=== PATIENT | female | born 1985 | race Caucasian/White ===

== ENCOUNTER → 2017-01-31 | Outpatient (CLI) | payer OTHER ==
--- NOTE | 2017-01-31 22:12 | US ---
EXAMINATION TYPE: US pelvic complete DATE OF EXAM: 01/31/2017 COMPARISON: NONE CLINICAL HISTORY: 31-year-old female N92.0 MENORRHAGIA W REG CYCLE. Heavy cycles since last 3 years ago, future ablation or hysterectomy TECHNIQUE: TA Date of LMP: 01/28/2017 FINDINGS: Uterus: Anteverted measuring 12.0 x 5.3 x 4.7 cm Endometrial Stripe: 0.8 cm, within normal limits. Right Ovary: 2.6 x 2.3 x 2.0 cm for a volume of 6.3 mL. Left Ovary: 2.3 x 2.1 x 2.0 cm for a volume of 5.1 mL. There is a 1.6 cm dominant follicle within. No evident adnexal abnormality or cul-de-sac free fluid. IMPRESSION: No specific abnormality identified. 8mm thick endometrial stripe and a 1.6 cm dominant follicle in th e left ovary.
[2017-02-01 01:14] LABS: Prolactin 6.8 ng/mL (2.8-29.2)
== END | disposition home or self-care (01) ==
LOC: RADUSWWP 15:00
PROVIDERS: ATTEND Obstetrics & Gynecology
DX: N92.0 Excessive and frequent menstruation with regular cycle (principal)
CPT/HCPCS: 36415; 76856; 83001; 83002; 84146; 84443

== ENCOUNTER 2017-03-15 09:30 | Day surgery (SDC) | payer OTHER ==
[2017-03-14 08:23] VITALS: BMI 45.1
--- NOTE | 2017-03-15 08:02 | P.HPOB ---
History of Present Illness H&P Date: 03/15/17 Chief Complaint: Heavy vaginal bleeding Cindi is a 31-year-old female with heavy vaginal bleeding. She reports passage of large clots and this is also causing her significant amount of pain and distress. In the past she is past out due to how heavy her bleeding is and how severe the clot passing is. We did discuss in length possibly starting on control versus Mirena but she would like a more permanent solution and she is therefore scheduled for a D&C hysteroscopy with NovaSure. Risks/benefits /alternatives to this procedure were discussed with the patient in detail and all questions are answered for the patient prior to proceeding to the operating room. She has had a previous tubal ligation. On physical exam this a well- developed well-nourished female whose HEENT is unremarkable. Heart regular, lungs clear, extremities without pain. Abdomen soft bowel sounds are noted. Assessment menorrhagia plan D&C with hysteroscopy and NovaSure Past Medical History Past Medical History: Asthma History of Any Multi-Drug Resistant Organisms: None Reported Past Surgical History: Section Additional Past Surgical History / Comment(s): Colonoscopy, EGD Past Anesthesia/Blood Transfusion Reactions: No Reported Reaction Additional Past Anesthesia/Blood Transfusion Reaction / Comment(s): NO PRIOR ANESTHESIA Smoking Status: Never smoker - Past Family History Brother(s) Family Medical History: Asthma Medications and Allergies Home Medications Medication Instructions Recorded Confirmed Type Albuterol Inhaler [Ventolin 1 - 2 puff INHALATION Q4-6H PRN 10/30/13 03/14/17 History Inhaler] Allergies Allergy/AdvReac Type Severity Reaction Status Date / Time arithromycin Allergy Anaphylaxis Uncoded 03/14/17 08:18 Exam Osteopathic Statement: *. No significant issues noted on an osteopathic structural exam other than those noted in the History and Physical/Consult.
[~2017-03-15 09:30] MED LIST: DEXAMETHASONE SOD PHOSPHATE 10 MG/ML 1 ML VIAL IV ONE; LACTATED RINGERS 1,000 ML IV SCH; LIDOCAINE 1% 20 ML VIAL (10MG/ML) FOR IV START INTRADERMA PRN; MIDAZOLAM 2 MG/2 ML VIAL IV PRN; Pre Op ABX Message 1 EACH MISC MISCELLANE ONE; SCOPOLAMINE 1.5MG/72HR PATCH TRANSDERM ONE
[2017-03-15] MEDS: ONDANSETRON 4 MG/2 ML VIAL IVP ONE ×2 (10:17→12:47)
[2017-03-15] MEDS ORDERED: PROPOFOL 10 MG/ML 20 ML VIAL IV ONE (11:06)
[2017-03-15] MEDS ORDERED: LIDOCAINE 1% INJ 10MG/ML (20 ML MDV) ONE (11:06)
[2017-03-15] MEDS ORDERED: MIDAZOLAM 2 MG/2 ML VIAL ONE (11:06)
[2017-03-15] MEDS ORDERED: fentaNYL (PF) 50 MCG/ML 2 ML AMP ONE (11:06)
[2017-03-15] MEDS ORDERED: SUCCINYLCHOLINE CHLORIDE 100 MG/5 ML SYR IV ONE (11:06)
--- NOTE | 2017-03-15 11:40 | P.OP ---
Date of Procedure: 03/15/17 Preoperative Diagnosis: Menorrhagia Postoperative Diagnosis: Same Procedure(s) Performed: D&C with hysteroscopy and NovaSure Anesthesia: ANGELA Surgeon: Karri Hopkins Estimated Blood Loss (ml): 5 Pathology: other (Uterine curettings) Condition: stable Disposition: same day Operative Findings: Proliferative endometrium Description of Procedure: Cindi was taken to the operating suite where a general anesthetic was found be adequate. She was prepped and draped in the normal sterile fashion and placed in the dorsal lithotomy position. Initially a weighted speculum was inserted into the vagina and the anterior lip cervix was grasped with an Allis clamp. Uterus was then sounded to 11 cm and cervix was dilated. Camera was inserted and proliferative endometrium was noted. Sharp curettings of the endometrium were then obtained and placed on Telfa paper. Once this was accomplished NovaSure system was brought in with a length of 5 and abdomen with 2-1/2 it was tested. Once it passed its patency test it was enabled and then it did burn for 91 seconds. The Conclusion of the burn NovaSure system was removed and camera was reinserted with good burn noted. All instruments were then removed sponge, lap , needle counts were all correct 2 and patient was taken to the recovery room in stable and satisfactory condition. Plan - Discharge Summary New Discharge Prescriptions: New Ibuprofen [Motrin] 600 mg PO Q6HR PRN #30 tab PRN Reason: Pain No Action Albuterol Inhaler [Ventolin Inhaler] 1 - 2 puff INHALATION Q4-6H PRN PRN Reason: Shortness Of Breath Or Wheezing Discharge Medication List Albuterol Inhaler [Ventolin Inhaler] 1 - 2 puff INHALATION Q4-6H PRN 10/30/13 [ History] Ibuprofen [Motrin] 600 mg PO Q6HR PRN #30 tab 03/15/17 [Rx] Activity/Diet/Wound Care/Special Instructions: Heavy lifting, limit stairs and driving and pelvic rest. If any high temperatures, heavy bleeding, or severe pain call my office
[2017-03-15 11:54] VITALS: TEMP 97
[2017-03-15] MEDS ORDERED: KETOROLAC 30 MG/ML 1 ML VIAL IVP ONE (11:59)
[2017-03-15] MEDS: HYDROmorphone 1 MG/ML 1 ML SYRINGE IVP PRN ×4 (12:00→12:50)
[2017-03-15 12:01] VITALS: RESP 16
[2017-03-15 13:28] VITALS: BP 118/77; PULSE 76
== END 2017-03-15 15:22 | disposition home or self-care (01) ==
LOC: OR 09:30
PROVIDERS: ATTEND Obstetrics & Gynecology
DX: N84.0 Polyp of corpus uteri (principal); N92.0 Excessive and frequent menstruation with regular cycle; J45.909 Unspecified asthma, uncomplicated; Z79.899 Other long term (current) drug therapy; Z88.1 Allergy status to other antibiotic agents
CPT/HCPCS: 81025; 88305; 58563; J2250; J1100; J2405; J2001; J3010; J1885; J1170; J0330; J2704

== ENCOUNTER → 2017-06-19 | Outpatient (CLI) | payer OTHER ==
[2017-06-19 09:08] LABS: Basophils % (A) 0 %; Eosinophils # (A) 0.3 k/uL (0-0.7); Eosinophils % (A) 4 %; HCT 40.2 % (34.0-46.0); Lymphocytes # (A) 1.9 k/uL (1.0-4.8); Lymphocytes % (A) 21 %; MCH 27.2 pg (25.0-35.0); MCHC 32.4 g/dL (31.0-37.0); MCV 83.9 fL (80.0-100.0); Mean Platelet Volume 6.6; Monocytes # (A) 0.4 k/uL (0-1.0); Monocytes % (A) 5 %; Neutrophils # (A) 6.3 k/uL (1.3-7.7); Neutrophils % (A) 69 %; Platelet Count 319 k/uL (150-450); RBC 4.79 m/uL (3.80-5.40); RDW 13.6 % (11.5-15.5); WBC 9.1 k/uL (3.8-10.6)
== END | disposition home or self-care (01) ==
LOC: LABWHC1 08:41
PROVIDERS: ATTEND Obstetrics & Gynecology
DX: N92.0 Excessive and frequent menstruation with regular cycle (principal); R42 Dizziness and giddiness
CPT/HCPCS: 36415; 85025

== ENCOUNTER → 2017-08-15 | Outpatient (CLI) | payer OTHER ==
[2017-08-15 13:34] LABS: Basophils % (A) 0 %; Eosinophils # (A) 0.3 k/uL (0-0.7); Eosinophils % (A) 3 %; HCT 39.5 % (34.0-46.0); HGB 12.9 gm/dL (11.4-16.0); Lymphocytes # (A) 2.1 k/uL (1.0-4.8); Lymphocytes % (A) 22 %; MCHC 32.7 g/dL (31.0-37.0); MCV 82.5 fL (80.0-100.0); Mean Platelet Volume 6.8; Monocytes # (A) 0.4 k/uL (0-1.0); Monocytes % (A) 4 %; Neutrophils # (A) 6.7 k/uL (1.3-7.7); Neutrophils % (A) 69 %; Platelet Count 327 k/uL (150-450); RBC 4.79 m/uL (3.80-5.40); RDW 14.2 % (11.5-15.5); WBC 9.6 k/uL (3.8-10.6)
[2017-08-15 14:02] LABS: Anion Gap 12 mmol/L; Blood Urea Nitrogen 13 mg/dL (7-17); Calcium 9.5 mg/dL (8.4-10.2); Carbon Dioxide 23 mmol/L (22-30); Chloride 107 mmol/L (98-107); Glucose 79 mg/dL (74-99); Potassium 4.3 mmol/L (3.5-5.1); Sodium 142 mmol/L (137-145)
== END | disposition home or self-care (01) ==
LOC: LABPAT 13:03
PROVIDERS: ATTEND Obstetrics & Gynecology
DX: Z01.812 Encounter for preprocedural laboratory examination (principal)
CPT/HCPCS: 36415; 80048; 85025

== ENCOUNTER 2017-08-23 05:37 | Observation (INO) | payer OTHER ==
[2017-08-14 14:02] VITALS: BMI 46.7
--- NOTE | 2017-08-22 06:46 | P.HPOB ---
History of Present Illness H&P Date: 08/22/17 Chief Complaint: Menorrhagia with failed NovaSure Cindi is a 32-year-old female who underwent a NovaSure ablation for menorrhagia. Since having the procedure she is continued to have heavy bleeding and at this time she is interested in a permanent solution and is therefore scheduled for a robotic-assisted laparoscopic hysterectomy with possible BETH possible BSO. Risks/benefits/alternatives to this procedure were discussed with the patient in detail and did include, but were not limited to damage to bladder, bowel, vascular injuries, nerve damage, bleeding, infection or potential ureteral injuries. She is unable to function well due to her bleeding and often cannot leave the house due to how heavy the bleeding is. It is severely impacting her activities of daily living. Past Medical History Past Medical History: Asthma Additional Past Medical History / Comment(s): abdominal pain and heavy and frequent periods History of Any Multi-Drug Resistant Organisms: None Reported Past Surgical History: Section, Uterine Ablation Additional Past Surgical History / Comment(s): D&C Past Anesthesia/Blood Transfusion Reactions: No Reported Reaction Additional Past Anesthesia/Blood Transfusion Reaction / Comment(s): . Smoking Status: Never smoker - Past Family History Mother Family Medical History: No Reported History Brother(s) Family Medical History: Asthma Medications and Allergies Home Medications Medication Instructions Recorded Confirmed Type No Known Home Medications [No 08/14/17 08/14/17 History Known Home Medications] Allergies Allergy/AdvReac Type Severity Reaction Status Date / Time erythromycin base Allergy Severe throat Verified 08/14/17 13:57 closes up Exam Osteopathic Statement: *. No significant issues noted on an osteopathic structural exam other than those noted in the History and Physical/Consult. - OBG Physical Exam Breast: both: normal (no masses) Abdomen: bowel sounds normal, no diffuse tenderness, no bruit present, no guarding noted, no hepatomegaly, no splenomegaly, no mass Vulva: both: normal Vagina: normal moisture, no discharge Cervix: no lesion, no discharge Uterus: normal size, normal contour Adnexa: both: normal Anus/Rectum: normal perianal skin, no rectal mass, no hemorrhoids, heme negative Assessment and Plan Assessment: Menorrhagia with failed ablation Plan: Robotic-assisted laparoscopic hysterectomy possible total abdominal hysterectomy and bilateral salpingo-oophorectomy
[~2017-08-23 05:37] MED LIST changes: +HYDROmorphone 0.5 MG/0.5 ML SYRINGE IVP PRN; -LACTATED RINGERS 1,000 ML IV SCH; -LIDOCAINE 1% 20 ML VIAL (10MG/ML) FOR IV START INTRADERMA PRN; -MIDAZOLAM 2 MG/2 ML VIAL IV PRN; +ONDANSETRON 4 MG/2 ML VIAL IVP ONE; -Pre Op ABX Message 1 EACH MISC MISCELLANE ONE; -SCOPOLAMINE 1.5MG/72HR PATCH TRANSDERM ONE
[2017-08-23] MEDS: LACTATED RINGERS 1,000 ML IV SCH (06:38)
[2017-08-23] MEDS ORDERED: SCOPOLAMINE 1.5MG/72HR PATCH TRANSDERM ONE (06:39)
[2017-08-23] MEDS ORDERED: LIDOCAINE 1% 20 ML VIAL (10MG/ML) FOR IV START SQ ONE (06:39)
[2017-08-23] MEDS ORDERED: SUCCINYLCHOLINE CHLORIDE VIAL 200 MG/10 ML VIAL IV ONE (07:37)
[2017-08-23] MEDS ORDERED: MIDAZOLAM 2 MG/2 ML VIAL ONE (07:37)
[2017-08-23] MEDS ORDERED: GLYCOPYRROLATE 0.2 MG/ML 2 ML VIAL ONE (07:37)
[2017-08-23] MEDS ORDERED: NEOSTIGMINE 1 MG/ML 10 ML VIAL ONE (07:37)
[2017-08-23] MEDS ORDERED: ROCURONIUM BROMIDE 10 MG/ML 10 ML VIAL IV ONE (07:37)
[2017-08-23] MEDS ORDERED: LIDOCAINE 1% INJ 10MG/ML (20 ML MDV) ONE (07:37)
[2017-08-23] MEDS ORDERED: fentaNYL (PF) 50 MCG/ML 2 ML AMP ONE (07:37)
[2017-08-23] MEDS ORDERED: PROPOFOL 10 MG/ML 20 ML VIAL IV ONE (07:37)
[2017-08-23] MEDS ORDERED: BUPIVACAINE (PF) 0.25% 30 ML VIAL SQ ONE ×2 (08:16)
[2017-08-23] MEDS ORDERED: ONDANSETRON 4 MG/2 ML VIAL IVP PRN (09:02)
[2017-08-23] MEDS ORDERED: Acetaminophen-Codeine 300-30mg TAB PO PRN (09:02)
[2017-08-23] MEDS ORDERED: SIMETHICONE 80 MG CHEWABLE PO PRN (09:02)
[2017-08-23] MEDS ORDERED: diphenhydrAMINE 50 MG/ML 1 ML VIAL IVP PRN (09:02)
--- NOTE | 2017-08-23 09:09 | P.OP ---
Date of Procedure: 08/23/17 Preoperative Diagnosis: Menorrhagia: Failed NovaSure Postoperative Diagnosis: Same Procedure(s) Performed: Robotic-assisted laparoscopic hysterectomy Anesthesia: ANGELA Surgeon: Karri Hopkins Staff Home Therapy Rn #1: Omayra Whittington Estimated Blood Loss (ml): 50 IV fluids (ml): 400 Urine output (ml): 75 Pathology: other (Uterus and cervix) Condition: stable Disposition: floor Operative Findings: No significant gross pathology was noted. Uterus somewhat boggy likely representing adenomyosis Description of Procedure: Patient was taken to the operating suite where general anesthetic was found be adequate. She was prepped and draped in the normal sterile fashion and placed in dorsal lithotomy position. Initially a weighted speculum was inserted into the vagina and anterior lip of the cervix identified and grasped with a single- tooth tenaculum. Cervix was then dilated and the uterus was sounded to 10 cm. Cup size was 3 cm. Lisa manipulator was then inserted without difficulty and maximal Ascent was measured and marked. Arteaga catheter was then placed and other instruments were removed. Gloves were changed and attention was turned to abdominal portion procedure where 2 mL of quarter percent Marcaine was injected approximately 1 inch above the umbilicus. Through this injected anesthetic a 5 mm skin incision was made and through this incision under direct visualization with an optical trocar and sleeve the camera was inserted. Once peritoneal placement was assured gas was allowed to fully insufflate the abdomen and patient was then placed in steep Trendelenburg position. Lateral ports and sleeves were then inserted approximately 10 cm lateral to the umbilicus on the right and left side 8 mm skin incisions were made and da Sofiya trochars were placed. Fourth port and sleeve was then placed between the left lateral and medial port slightly superior to the medial port through 1 cm incision. This was used for the customer service assistant port. Da Sofiya port was then exchanged for the laparoscopic camera port and robot was brought in and docked. Once fully docked a scissor was placed in the one arm and a blunt grasper in the 2 arm. At this point did break scrub and go to the console. Uterus was elevated and tipped to the right side first the utero-ovarian ligament was identified cauterized and cut transection through the broad ligament tissues and mesosalpinx were then cauterized and cut once the round ligament round ligament was cauterized and transected and cardia was used to skeletonize the vascularity on the left side. Once this was accomplished and down to level of the bladder flap bladder flap was undermined with [place] grasper and incised with scissor across face uterus and the bladder was then bluntly and sharply dissected out of the operative field. Once this was concluded in a similar fashion the right side of the uterus was developed. Balloon was then blown up in the Lisa manipulator and the cup was identified. Anterior colpotomy was then made and this was followed around in a clockwise fashion cheating head when necessary to maintain excellent hemostasis. Once 3 and 60 was completed uterus was brought into the vagina to maintain pneumoperitoneum. All pedicles were hemostatic therefore instruments were exchanged for a fenestrated grasper and a make suture cut. She will be lock suture was then brought in and half was closed in a running fashion with this suture. Once this was completed pelvis was irrigated this fluid was then suctioned out no bleeding is noted from any of the pedicles therefore instruments were removed and gas was allowed to expel from the abdomen. 5 deep breaths were provided during this process. I did re-scrub in at this point and did do a cystoscopy with good flow noted from both ureteral jets and Dr. Whittington close incision subcuticular. The remaining 7-8 mL of quarter percent Marcaine was then injected around the incisions. Sponge, lap, needle counts were all correct 2. Patient was then taken to the recovery room in stable and satisfactory condition.
[2017-08-23] MEDS: MORPHINE SULFATE 4 MG/ML SYRINGE IV PRN ×2 (09:26→09:38)
[2017-08-23] MEDS: KETOROLAC 30 MG/ML 1 ML VIAL IVP PRN ×2 (09:31→17:17)
[2017-08-23] MEDS ORDERED: MEPERIDINE 50 MG/ML SYRINGE IVP ONE (09:50)
[2017-08-23] MEDS: Acetaminophen-Codeine 300-30mg TAB PO PRN ×2 (11:43→19:32)
[2017-08-23] MEDS: SENNOSIDES-DOCUSATE SODIUM 1 EACH TAB PO SCH (19:32)
[2017-08-24] MEDS: KETOROLAC 30 MG/ML 1 ML VIAL IVP PRN (00:21)
[2017-08-24] MEDS: Acetaminophen-Codeine 300-30mg TAB PO PRN ×3 (02:27→12:56)
[2017-08-24] MEDS: SENNOSIDES-DOCUSATE SODIUM 1 EACH TAB PO SCH (07:43)
[2017-08-24 08:31] LABS: Basophils % (A) 0 %; Eosinophils % (A) 0 %; HCT 38.2 % (34.0-46.0); HGB 12.7 gm/dL (11.4-16.0); Lymphocytes # (A) 2.1 k/uL (1.0-4.8); Lymphocytes % (A) 14 %; MCH 27.4 pg (25.0-35.0); MCHC 33.3 g/dL (31.0-37.0); MCV 82.4 fL (80.0-100.0); Mean Platelet Volume 6.6; Monocytes # (A) 0.6 k/uL (0-1.0); Monocytes % (A) 4 %; Neutrophils # (A) 11.4 k/uL (1.3-7.7); Neutrophils % (A) 80 %; Platelet Count 361 k/uL (150-450); RBC 4.64 m/uL (3.80-5.40); RDW 14.1 % (11.5-15.5); WBC 14.3 k/uL (3.8-10.6)
--- NOTE | 2017-08-24 12:58 | P.DS ---
Providers Date of admission: 08/24/17 00:27 Expected date of discharge: 08/24/17 Attending physician: Karri Hopkins Primary care physician: Stated None Hospital Course: Cindi is doing very well postop day 1. She is involuting, voiding, and she is tolerating her diet. She voices no complaints and is requesting discharge home today. Vital signs are stable and afebrile. Heart regular, lungs clear, extremities without pain. Abdomen soft nontender and positive bowel sounds are noted. Her incisions are intact. Assessment postop day 1. Plan discharged home follow up with me in 1 week. Prescription for 3 days worth of #3 and Motrin as been provided. All the questions are answered for her at this time and she will follow up with me in 1 week. Patient Condition at Discharge: Good Plan - Discharge Summary Discharge Rx Participant: Yes New Discharge Prescriptions: New Acetaminophen-Codeine 300-30mg [Tylenol #3] 1 tab PO Q4H PRN #30 tablet PRN Reason: Pain Ibuprofen [Motrin] 600 mg PO Q6HR PRN #30 tab PRN Reason: Pain Discharge Medication List Acetaminophen-Codeine 300-30mg [Tylenol #3] 1 tab PO Q4H PRN #30 tablet [Rx] Ibuprofen [Motrin] 600 mg PO Q6HR PRN #30 tab 08/24/17 [Rx] Follow up Appointment(s)/Referral(s): Karri Hopkins DO [Doctor of Osteopathic Medicine] - 1 Week Activity/Diet/Wound Care/Special Instructions: No heavy lifting, limit stairs and driving, and pelvic rest. If any high temperatures, heavy bleeding, or severe pain call my office Discharge Disposition: HOME SELF-CARE
[2017-08-24 13:08] VITALS: RESP 16
[2017-08-24 15:58] VITALS: BP 116/55; PULSE 73; TEMP 98.8
== END 2017-08-24 17:00 | disposition home or self-care (01) ==
LOC: OR 05:37 → 4FBP 09:11 → OR 08-24 00:27
PROVIDERS: ADMIT Obstetrics & Gynecology; ATTEND Obstetrics & Gynecology
DX: N92.0 Excessive and frequent menstruation with regular cycle (principal); J45.909 Unspecified asthma, uncomplicated; Z88.1 Allergy status to other antibiotic agents
CPT/HCPCS: 81025; 86900; 86901; 85025; 86850; 88307; 58570; G0378; J2250; J0330; J2270; J1100; J2710; J2175; J0690; J2405; J2001; J3010; J1885 ×2; J2704

== ENCOUNTER → 2018-10-21 | Outpatient (CLI) | payer BC ==
[2018-10-21 15:29] VITALS: BP 148/88; PULSE 73; TEMP 98.6; BMI 51.1
--- NOTE | 2018-10-21 16:24 | P.HPBAR ---
Bariatric H&P - History & Physicial H&P Date: 10/21/18 History & Physicial: Visit/CC: bariatric sx consult Patient initial contact: Initial weight: 143.698 kg Initial weight in pounds: 316.80 Height: 5 ft 6 in Initial BMI: 51.1 Last weight: Current weight: 143.698 kg Current weight in pounds: 316.80 Current BMI: 51.1 [place] body weight (based on NIH guidelines): 58.967 kg Excess body weight loss: 0.0% The patient is a 33 year-old F who presents for Bariatric Assessment. Patient presents today for initial bariatric consultation. The patient is interested in the sleeve gastrectomy. Patient's had lifetime problems obesity. Her BMI is 51. Past Medical History Past Medical History: Asthma Additional Past Medical History / Comment(s): abdominal pain and heavy and frequent periods History of Any Multi-Drug Resistant Organisms: None Reported Past Surgical History: Section, Hysterectomy, Uterine Ablation Additional Past Surgical History / Comment(s): D&C, partial hysterectomy (bilateral ovaries retained) August 2017, Past Anesthesia/Blood Transfusion Reactions: No Reported Reaction Additional Past Anesthesia/Blood Transfusion Reaction / Comm: . Past Psychological History: Anxiety Additional Psychological History / Comment(s): Takes Lexapro daily Smoking Status: Never smoker Past Alcohol Use History: Rare Past Drug Use History: None Reported - Past Family History Mother Family Medical History: Hypertension Father Additional Family Medical History / Comment(s): at age 46 from unknown causes Surgical - Exam Vital Signs Temp Pulse BP 98.6 F 73 148/88 10/21/18 15:19 10/21/18 15:19 10/21/18 15:19 BMI 51 - General well developed, well nourished, no distress - Eyes PERRL - Abdomen Abdomen: soft, non tender Bariatric Assessment & Plan Plan: RBC. Patient will be scheduled for EGD to evaluate her stomach. We went over the risks and benefits of the sleeve gastrectomy. Patient has good understanding of sleeve gastrectomy she'll centimeters a risk of gastric staple line bleeding, scarring or obstruction. Bariatric Checklist Checklist: Plan: Checklist: EGD: 1. Hiatal hernia: 2. H. Pylori: HgbA1c: Vitamin D: Smoking: Never smoker Primary care physician referral: Dr. Thomas Psychiatry clearance: Cardiology clearance: Sleep study: Diet journal: VTE risk score: VTE risk level: Rehab needs at discharge:
[2018-10-21 17:19] LABS: HCT 40.3 % (34.0-46.0); HGB 13.2 gm/dL (11.4-16.0); MCH 27.9 pg (25.0-35.0); MCHC 32.8 g/dL (31.0-37.0); Mean Platelet Volume 6.7; Platelet Count 322 k/uL (150-450); RBC 4.74 m/uL (3.80-5.40); RDW 13.9 % (11.5-15.5); WBC 11.3 k/uL (3.8-10.6)
[2018-10-22 00:12] LABS: Vitamin D 25 Hydroxy 18.9 ng/mL (30.0-100.0)
[2018-10-22 00:38] LABS: African American GFR (CKD) 113.1 (60.0-200.0); Albumin 4.5 g/dL (3.80-4.90); Albumin/Globulin Ratio 2.37 (1.60-3.17); Anion Gap 14.6 mmol/L (4.00-12.00); BUN/Creat Ratio 11.25 Ratio (12.00-20.00); Calcium 9.4 mg/dL (8.7-10.3); Carbon Dioxide 19.4 mmol/L (21.6-31.8); Globulin 1.9 g/dL (1.6-3.3); Potassium 4.3 mmol/L (3.5-5.5); Total Bilirubin 0.2 mg/dL (0.2-1.2); Total Protein 6.4 g/dL (6.2-8.2)
[2018-10-22 01:21] LABS: Hemoglobin A1C 5.4 % (4.0-6.0)
== END | disposition home or self-care (01) ==
LOC: BARWHC3 14:55
PROVIDERS: ATTEND Surgery
DX: E66.01 Morbid (severe) obesity due to excess calories (principal); E44.0 Moderate protein-calorie malnutrition; E55.9 Vitamin D deficiency, unspecified; Z68.43 Body mass index [BMI] 50.0-59.9, adult
CPT/HCPCS: 80053; 82306; 82607; 83036; 84443; 85027; 93005; 99211

== ENCOUNTER 2018-12-11 12:13 | Day surgery (SDC) | payer BC ==
[2018-12-05 13:43] VITALS: BMI 52.1
[~2018-12-11 12:13] MED LIST changes: -DEXAMETHASONE SOD PHOSPHATE 10 MG/ML 1 ML VIAL IV ONE; -HYDROmorphone 0.5 MG/0.5 ML SYRINGE IVP PRN; +LACTATED RINGERS 1,000 ML IV SCH; +LIDOCAINE 1% 20 ML VIAL (10MG/ML) FOR IV START INTRADERMA PRN; -ONDANSETRON 4 MG/2 ML VIAL IVP ONE
[2018-12-11 12:37] VITALS: TEMP 97.3
[2018-12-11] MEDS ORDERED: PROPOFOL 10 MG/ML 20 ML VIAL IV ONE (13:27)
[2018-12-11] MEDS ORDERED: LIDOCAINE 1% INJ 10MG/ML (20 ML MDV) ONE (13:27)
[2018-12-11] MEDS ORDERED: fentaNYL (PF) 50 MCG/ML 2 ML AMP ONE (13:27)
--- NOTE | 2018-12-11 13:30 | P.GSHP ---
History of Present Illness H&P Date: 12/11/18 Chief Complaint: Morbid obesity This is a 33-year-old female who presents today for EGD. She is undergoing workup for sleeve gastrectomy. Her BMI is 52 Past Medical History Past Medical History: Asthma Additional Past Medical History / Comment(s): . History of Any Multi-Drug Resistant Organisms: None Reported Past Surgical History: Section, Hysterectomy, Uterine Ablation Additional Past Surgical History / Comment(s): D&C, partial hysterectomy (bilateral ovaries retained) August 2017, Past Anesthesia/Blood Transfusion Reactions: No Reported Reaction Additional Past Anesthesia/Blood Transfusion Reaction / Comment(s): . Smoking Status: Never smoker - Past Family History Mother Family Medical History: Hypertension Father Additional Family Medical History / Comment(s): at age 46 from unknown causes Medications and Allergies Home Medications Medication Instructions Recorded Confirmed Type Escitalopram [Lexapro] 10 mg PO DAILY 10/21/18 12/11/18 History Allergies Allergy/AdvReac Type Severity Reaction Status Date / Time erythromycin base Allergy Severe throat Verified 12/05/18 13:38 closes up amoxicillin [From Augmentin] Allergy Rash/Hives Verified 12/05/18 13:38 clavulanic acid Allergy Rash/Hives Verified 12/05/18 13:38 [From Augmentin] sulfamethoxazole Allergy Rash/Hives Verified 12/05/18 13:38 [From Bactrim] trimethoprim [From Bactrim] Allergy Rash/Hives Verified 12/05/18 13:38 Surgical - Exam Vital Signs Temp Pulse Resp BP Pulse Ox 97.3 F L 69 18 144/77 96 12/11/18 12:35 12/11/18 12:35 12/11/18 12:35 12/11/18 12:35 12/11/18 12:35 - General well developed, well nourished, no distress - Eyes PERRL - ENT normal pinna - Neck no masses, no bruits - Respiratory normal expansion - Cardiovascular Rhythm: regular - Abdomen Abdomen: soft, non tender Assessment and Plan Assessment: Morbid obesity, BMI 52. We'll perform EGD.
--- NOTE | 2018-12-11 13:37 | P.OP ---
Date of Procedure: 12/11/18 Preoperative Diagnosis: Morbid obesity, BMI 52 Postoperative Diagnosis: Antral gastritis Hiatal hernia Esophagitis Procedure(s) Performed: EGD Anesthesia: MAC Surgeon: Rob Russo Pathology: other (Antrum, esophagus) Condition: stable Disposition: PACU Description of Procedure: Patient's placed on the endoscopy table in the lateral position. She received IV sedation. The gastroscope was oropharynx past esophagus stomach. Scope some placed through the pylorus. The first and second portion of the duodenum appeared normal. Scope was then brought back the antrum this was mildly inflamed. A biopsies performed. Scope was unretroflexed and remainder the stomach appeared normal. There was a small hiatal hernia. The GE junction was at 38 cm. The distal esophagus. Inflamed a biopsies performed. The proximal esophagus appeared normal. Scope was withdrawn for patient.
[2018-12-11] MEDS ORDERED: LACTATED RINGERS 1,000 ML IV ONE (13:40)
[2018-12-11] MEDS ORDERED: IV FLUID CONTINUATION 1,000 ML IV ONE (13:40)
[2018-12-11 13:56] VITALS: BP 139/91; PULSE 68; RESP 16
== END 2018-12-11 14:14 | disposition home or self-care (01) ==
LOC: ORWHC2ENDO 12:13
PROVIDERS: ATTEND Surgery
DX: E66.01 Morbid (severe) obesity due to excess calories (principal); Z68.43 Body mass index [BMI] 50.0-59.9, adult; I10 Essential (primary) hypertension; K44.9 Diaphragmatic hernia without obstruction or gangrene; K21.0 Gastro-esophageal reflux disease with esophagitis; K29.70 Gastritis, unspecified, without bleeding; E78.5 Hyperlipidemia, unspecified; Z87.891 Personal history of nicotine dependence; J45.909 Unspecified asthma, uncomplicated; Z88.1 Allergy status to other antibiotic agents; Z88.2 Allergy status to sulfonamides; Z88.8 Allergy status to other drugs, medicaments and biological substances; Z79.899 Other long term (current) drug therapy; Z90.711 Acquired absence of uterus with remaining cervical stump; Z82.49 Family history of ischemic heart disease and other diseases of the circulatory system
CPT/HCPCS: 88305; 43239; J2001; J3010; J2704

== ENCOUNTER → 2018-12-30 | Outpatient (CLI) | payer BC ==
[2018-12-30 13:35] VITALS: BMI 51.5
== END | disposition home or self-care (01) ==
LOC: BARWHC3 08:43
PROVIDERS: ATTEND Surgery
DX: E66.01 Morbid (severe) obesity due to excess calories (principal); Z68.43 Body mass index [BMI] 50.0-59.9, adult
CPT/HCPCS: 97804

== ENCOUNTER → 2019-01-13 | Outpatient (CLI) | payer BC ==
[2019-01-13 16:04] VITALS: RESP 16
--- NOTE | 2019-01-13 16:39 | P.HPBAR ---
Bariatric H&P - History & Physicial H&P Date: 01/13/19 History & Physicial: Visit/CC: Post-Surg Patient initial contact: Initial weight: 143.698 kg Initial weight in pounds: 316.80 Height: Initial BMI: Last weight: Current weight: Current weight in pounds: Current BMI: [place] body weight (based on NIH guidelines): Excess body weight loss: The patient is a 33 year-old F who presents for Bariatric Assessment. Patient presents today for presurgical consultation. Apparently she has met all her insurance authorization requirements. The patient is an excellent understanding sleeve gastrectomy. Patient states that she's had some intermittent right upper quadrant pain. She's had a previous HIDA scan which was abnormal. Past Medical History Past Medical History: Asthma Additional Past Medical History / Comment(s): . History of Any Multi-Drug Resistant Organisms: None Reported Past Surgical History: Section, Hysterectomy, Uterine Ablation Additional Past Surgical History / Comment(s): D&C, partial hysterectomy (bilateral ovaries retained) August 2017, Past Anesthesia/Blood Transfusion Reactions: No Reported Reaction Additional Past Anesthesia/Blood Transfusion Reaction / Comm: . Past Psychological History: Anxiety Additional Psychological History / Comment(s): . Smoking Status: Never smoker Past Alcohol Use History: Rare Past Drug Use History: None Reported - Past Family History Mother Family Medical History: Hypertension Father Additional Family Medical History / Comment(s): at age 46 from unknown causes Brother(s) Family Medical History: Asthma Surgical - Exam Vital Signs Resp 16 01/13/19 15:45 - General well developed, well nourished, no distress - Eyes PERRL - ENT normal pinna - Neck no masses - Respiratory normal expansion - Cardiovascular Rhythm: regular - Abdomen Abdomen: soft, non tender Bariatric Assessment & Plan Plan: Morbid obesity. Chronic cholecystitis with hyperkinetic gallbladder. Patiently scheduled for laparoscopic sleeve yesterday. She'll also be scheduled for a laparoscopic cholecystectomy. Bariatric Checklist Checklist: Plan: Checklist: EGD: 1. Hiatal hernia: 2. H. Pylori: HgbA1c: Vitamin D: Smoking: Never smoker Primary care physician referral: Dr. Thomas Psychiatry clearance: Cardiology clearance: Sleep study: Diet journal: VTE risk score: VTE risk level: Rehab needs at discharge:
== END | disposition home or self-care (01) ==
LOC: BARWHC3 15:13
PROVIDERS: ATTEND Surgery
DX: E66.01 Morbid (severe) obesity due to excess calories (principal); K81.1 Chronic cholecystitis; K82.9 Disease of gallbladder, unspecified; R10.11 Right upper quadrant pain; Z90.710 Acquired absence of both cervix and uterus; Z98.890 Other specified postprocedural states
CPT/HCPCS: 99211

== ENCOUNTER → 2019-01-22 | Outpatient (CLI) | payer BC ==
[2019-01-22 14:39] LABS: HCT 41.8 % (34.0-46.0); HGB 13.6 gm/dL (11.4-16.0); MCH 27.6 pg (25.0-35.0); MCHC 32.5 g/dL (31.0-37.0); MCV 84.9 fL (80.0-100.0); Mean Platelet Volume 6.9; Platelet Count 346 k/uL (150-450); RBC 4.92 m/uL (3.80-5.40); RDW 15.1 % (11.5-15.5); WBC 9.8 k/uL (3.8-10.6)
== END | disposition home or self-care (01) ==
LOC: LABPAT 12:47
PROVIDERS: ATTEND Surgery
DX: Z01.812 Encounter for preprocedural laboratory examination (principal); K81.9 Cholecystitis, unspecified
CPT/HCPCS: 36415; 85027

== ENCOUNTER 2019-01-24 08:19 | Day surgery (SDC) | payer BC ==
[2019-01-21 14:07] VITALS: BMI 51.6
[~2019-01-24 08:19] MED LIST changes: +DEXAMETHASONE SOD PHOSPHATE 10 MG/ML 1 ML VIAL IV ONE; +HYDROmorphone 0.5 MG/0.5 ML SYRINGE IVP PRN; +ONDANSETRON 4 MG/2 ML VIAL IVP ONE; +ceFAZolin 3 GM in SODIUM CHLORIDE 0.9% 100 ML IVPB ONE
[2019-01-24] MEDS ORDERED: LACTATED RINGERS 1,000 ML IV ONE ×2 (08:44→09:50)
[2019-01-24] MEDS ORDERED: HEPARIN SODIUM,PORCINE 5,000 UNIT/ML 1 ML VIAL SQ ONE (08:53)
--- NOTE | 2019-01-24 09:29 | P.GSHP ---
History of Present Illness H&P Date: 01/24/19 Chief Complaint: Right upper quadrant pain This is a 31-year-old female who's had chronic point the right upper quadrant pain. Patient has pain when eating greasy or fried foods. She had a recent ultrasound shows a contracted gallbladder suggestive chronic cholecystitis. Past Medical History Past Medical History: Asthma Additional Past Medical History / Comment(s): GALLBLADDER DISEASE History of Any Multi-Drug Resistant Organisms: None Reported Past Surgical History: Section, Hysterectomy, Uterine Ablation Additional Past Surgical History / Comment(s): D&C, partial hysterectomy (bilateral ovaries retained) August 2017, EGD Past Anesthesia/Blood Transfusion Reactions: No Reported Reaction Additional Past Anesthesia/Blood Transfusion Reaction / Comment(s): . Smoking Status: Never smoker - Past Family History Mother Family Medical History: Hypertension Father Additional Family Medical History / Comment(s): at age 46 from unknown causes Brother(s) Family Medical History: Asthma Medications and Allergies Home Medications Medication Instructions Recorded Confirmed Type Escitalopram [Lexapro] 10 mg PO DAILY 10/21/18 01/21/19 History Allergies Allergy/AdvReac Type Severity Reaction Status Date / Time erythromycin base Allergy Severe throat Verified 01/21/19 12:01 closes up amoxicillin [From Augmentin] Allergy Rash/Hives Verified 01/21/19 12:01 clavulanic acid Allergy Rash/Hives Verified 01/21/19 12:01 [From Augmentin] sulfamethoxazole Allergy Rash/Hives Verified 01/21/19 12:01 [From Bactrim] trimethoprim [From Bactrim] Allergy Rash/Hives Verified 01/21/19 12:01 Surgical - Exam Vital Signs Temp Pulse Resp BP Pulse Ox 97.8 F 77 18 151/85 97 01/24/19 08:43 01/24/19 08:43 01/24/19 08:43 01/24/19 08:43 01/24/19 08:43 - General well developed, well nourished, no distress - Eyes PERRL - ENT normal pinna - Neck no masses - Respiratory normal expansion - Cardiovascular Rhythm: regular - Abdomen Abdomen: soft, non tender Assessment and Plan Assessment: Chronic cholecystitis We'll perform laparoscopic cholecystectomy
--- NOTE | 2019-01-24 09:35 | P.OP ---
Date of Procedure: 01/24/19 Preoperative Diagnosis: GERD Postoperative Diagnosis: Mild antral gastritis Mild esophagitis Procedure(s) Performed: EGD Anesthesia: MAC Surgeon: Rob Russo Pathology: other (Antrum, esophagus) Condition: stable Disposition: PACU Description of Procedure: The patient's placed on the endoscopy table in the lateral position. She received IV sedation. The gastric was placed oropharynx passed in the esophagus and into the stomach. Scope was placed through the pylorus. The first and second portion of the duodenum appeared normal. Scope summer back the antrum and this appeared mildly inflamed. A biopsies was performed. The scope was then retroflexed and the remainder of the stomach appeared normal. There was no significant hiatal hernia. The GE junction was at 40 cm. The distal esophagus appeared mildly inflamed a biopsies performed. The proximal esophagus appeared normal. Scope was withdrawn for patient.
[2019-01-24] MEDS ORDERED: GLYCOPYRROLATE 0.2 MG/ML 2 ML VIAL ONE (09:43)
[2019-01-24] MEDS ORDERED: ROCURONIUM BROMIDE 10 MG/ML 10 ML VIAL IV ONE (09:43)
[2019-01-24] MEDS ORDERED: PROPOFOL 10 MG/ML 20 ML VIAL IV ONE (09:43)
[2019-01-24] MEDS ORDERED: KETOROLAC 30 MG/ML 1 ML VIAL ONE (09:43)
[2019-01-24] MEDS ORDERED: LIDOCAINE 1% INJ 10MG/ML (20 ML MDV) ONE (09:43)
[2019-01-24] MEDS ORDERED: NEOSTIGMINE 1 MG/ML 10 ML VIAL ONE (09:43)
[2019-01-24] MEDS ORDERED: fentaNYL (PF) 50 MCG/ML 2 ML AMP ONE (09:43)
[2019-01-24] MEDS ORDERED: MIDAZOLAM 2 MG/2 ML VIAL ONE (09:43)
[2019-01-24] MEDS ORDERED: BUPIVACAINE (PF) 0.25% 30 ML VIAL SQ ONE (10:10)
[2019-01-24 10:38] VITALS: RESP 16; TEMP 97
--- NOTE | 2019-01-24 10:44 | P.OP ---
Date of Procedure: 01/24/19 Preoperative Diagnosis: Cholecystitis Postoperative Diagnosis: Cholecystitis Procedure(s) Performed: Laparoscopic cholecystectomy Anesthesia: ANGELA Surgeon: Rob Russo Estimated Blood Loss (ml): 5 Pathology: none sent Condition: stable Disposition: PACU Description of Procedure: The patient was placed on the operating table. The patient received a general endotracheal tube anesthesia. The patients abdomen was prepped and draped in the usual sterile fashion. Through an infraumbilical stab incision, the fascia of the anterior abdominal wall was grasped with a pair of Kochers and then the Veress needle was placed in the peritoneal cavity. Position of the Veress needle was confirmed with positive drop test. The abdomen was then insufflated. After adequate insufflation, the 10 mm trocar was placed in the peritoneal cavity. Following this the laparoscope was placed in the peritoneal cavity. The patient was placed in the head-up, right side up position and then a 5 mm trocar was placed in the right lateral and right subcostal position under direct visualization. A 8 mm trocar was placed in the epigastric position. The gallbladder was grasped in the fundus and infundibulum. Traction on the gallbladder was placed in the lateral and the c ephalad positions. The triangle of Calot was visualized.. The cystic duct was bluntly dissected until the union of the cystic duct and common bile duct was seen. A critical view of safety was achieved. The cystic duct was then divided and sealed with the Harmonic scissors. A PDS Endoloop was then placed throughout the cystic duct stump. The cystic artery divided and sealed with the Harmonic scissors. The gallbladder was then removed from the liver bed using Harmonic scissors. The gallbladder was then extracted through the epigastric port site. Operative field was checked for any bleeding spots and Harmonic scissors was used to coagulate the liver bed. The abdomen was irrigated. The trocars were removed. The skin was closed using interrupted 3-0 Vicryl suture. Dermabond dressing were applied. The patient tolerated the procedure well.
[2019-01-24 11:53] VITALS: BP 152/81; PULSE 73
== END 2019-01-24 12:21 | disposition home or self-care (01) ==
LOC: OR 08:19
PROVIDERS: ATTEND Surgery
DX: K81.1 Chronic cholecystitis (principal); J45.909 Unspecified asthma, uncomplicated; F41.9 Anxiety disorder, unspecified; Z79.899 Other long term (current) drug therapy; Z88.1 Allergy status to other antibiotic agents; Z88.2 Allergy status to sulfonamides; Z88.0 Allergy status to penicillin; Z90.710 Acquired absence of both cervix and uterus; Z98.890 Other specified postprocedural states; Z82.49 Family history of ischemic heart disease and other diseases of the circulatory system; Z82.5 Family history of asthma and other chronic lower respiratory diseases
CPT/HCPCS: 88304; 47562; J2250; J1644; J1100; J2710; J0690; J2405; J2001; J3010; J1885; J2704

== ENCOUNTER → 2019-02-03 | Outpatient (CLI) | payer BC ==
[2019-02-03 13:17] VITALS: BP 155/96; PULSE 73; TEMP 98.3; BMI 50.3
--- NOTE | 2019-02-03 14:29 | P.HPBAR ---
Bariatric H&P - History & Physicial H&P Date: 02/03/19 History & Physicial: Visit/CC: Review/sign sleeve consent Patient initial contact: Initial weight: 143.698 kg Initial weight in pounds: 316.80 Height: 5 ft 6 in Initial BMI: 51.1 Last weight: Current weight: 141.521 kg Current weight in pounds: 312.00 Current BMI: 50.3 Paxton body weight (based on NIH guidelines): 58.967 kg Excess body weight loss: 2.5% The patient is a 33 year-old F who presents for Bariatric Assessment. Patient presents today for sleeve gastrectomy consultation. Her BMI is 50. She lost 4 pounds since her last visit. Past Medical History Past Medical History: Asthma Additional Past Medical History / Comment(s): GALLBLADDER DISEASE History of Any Multi-Drug Resistant Organisms: None Reported Past Surgical History: Section, Cholecystectomy, Hysterectomy, Uterine Ablation Additional Past Surgical History / Comment(s): D&C, partial hysterectomy (bila teral ovaries retained) August 2017, EGD Past Anesthesia/Blood Transfusion Reactions: No Reported Reaction Additional Past Anesthesia/Blood Transfusion Reaction / Comm: . Past Psychological History: Anxiety Additional Psychological History / Comment(s): . Smoking Status: Never smoker Past Alcohol Use History: Rare Past Drug Use History: None Reported - Past Family History Mother Family Medical History: Hypertension Father Additional Family Medical History / Comment(s): at age 46 from unknown causes Brother(s) Family Medical History: Asthma Surgical - Exam Vital Signs Temp Pulse BP 98.3 F 73 155/96 02/03/19 13:12 02/03/19 13:12 02/03/19 13:12 - General well developed, well nourished, no distress - Eyes PERRL - Abdomen Abdomen: soft, non tender Bariatric Assessment & Plan Plan: Morbid obesity BMI 50. Patient will be scheduled for sleeve gastrectomy next month. Bariatric Checklist Checklist: Plan: Checklist: EGD: 1. Hiatal hernia: 2. H. Pylori: HgbA1c: Vitamin D: Smoking: Never smoker Primary care physician referral: Dr. Thomas Psychiatry clearance: Cardiology clearance: Sleep study: Diet journal: VTE risk score: VTE risk level: Rehab needs at discharge:
== END ==
LOC: BARWHC3 13:02
PROVIDERS: ATTEND Surgery
DX: E66.01 Morbid (severe) obesity due to excess calories (principal); Z68.43 Body mass index [BMI] 50.0-59.9, adult; Z90.49 Acquired absence of other specified parts of digestive tract
CPT/HCPCS: 99211

== ENCOUNTER → 2019-02-21 | Outpatient (CLI) | payer BC ==
[2019-02-21 17:23] LABS: Basophils % (A) 1 %; Eosinophils # (A) 0.2 k/uL (0-0.7); Eosinophils % (A) 3 %; HCT 39.9 % (34.0-46.0); HGB 12.7 gm/dL (11.4-16.0); Lymphocytes # (A) 2.4 k/uL (1.0-4.8); Lymphocytes % (A) 27 %; MCH 27.9 pg (25.0-35.0); MCHC 31.8 g/dL (31.0-37.0); MCV 87.7 fL (80.0-100.0); Mean Platelet Volume 6.9; Monocytes # (A) 0.5 k/uL (0-1.0); Monocytes % (A) 6 %; Neutrophils # (A) 5.4 k/uL (1.3-7.7); Neutrophils % (A) 62 %; Platelet Count 322 k/uL (150-450); RBC 4.55 m/uL (3.80-5.40); RDW 14.1 % (11.5-15.5); WBC 8.7 k/uL (3.8-10.6)
[2019-02-21 17:37] LABS: ALT 18 U/L (9-52); AST 19 U/L (14-36); African American GFR (CKD) >90 (>60 ml/min/1.73 sqM); Albumin 4.2 g/dL (3.5-5.0); Alkaline Phosphatase 93 U/L (38-126); Anion Gap 9 mmol/L; Blood Urea Nitrogen 7 mg/dL (7-17); Calcium 9.3 mg/dL (8.4-10.2); Carbon Dioxide 25 mmol/L (22-30); Chloride 107 mmol/L (98-107); Glucose 88 mg/dL (74-99); Potassium 3.9 mmol/L (3.5-5.1); Sodium 141 mmol/L (137-145); Total Bilirubin 0.2 mg/dL (0.2-1.3); Total Protein 6.8 g/dL (6.3-8.2)
== END | disposition home or self-care (01) ==
LOC: LABPAT 15:17
PROVIDERS: ATTEND Surgery
DX: Z01.818 Encounter for other preprocedural examination (principal); Z01.812 Encounter for preprocedural laboratory examination
CPT/HCPCS: 80053; 85025; 93005

== ENCOUNTER 2019-02-27 07:40 | Inpatient (IN) | payer BC ==
[~2019-02-27 07:40] MED LIST changes: +ENOXAPARIN 40 MG/0.4 ML SYRINGE SQ ONE; -HYDROmorphone 0.5 MG/0.5 ML SYRINGE IVP PRN; -LACTATED RINGERS 1,000 ML IV SCH; -ONDANSETRON 4 MG/2 ML VIAL IVP ONE; +fentaNYL (PF) 50 MCG/ML 2 ML AMP IV PRN
[2019-02-27] MEDS: LACTATED RINGERS 1,000 ML IV SCH (08:44)
[2019-02-27] MEDS: ONDANSETRON 4 MG/2 ML VIAL IVP ONE ×2 (08:47→14:14)
[2019-02-27] MEDS ORDERED: MIDAZOLAM 2 MG/2 ML VIAL IVP ONE (08:49)
--- NOTE | 2019-02-27 09:19 | P.GSHP ---
History of Present Illness H&P Date: 02/27/19 Chief Complaint: Morbid obesity, BMI 52 This is a 33-year-old female who presents today for sleeve gastrectomy. Patient's had lifetime problems obesity. Her BMI is 52. Patient has an excellent understanding of sleeve gastrectomy. She is aware the risks of surgery including gastric stapling perforation scarring of bleeding. Past Medical History Past Medical History: Asthma Additional Past Medical History / Comment(s): GALLBLADDER DISEASE History of Any Multi-Drug Resistant Organisms: None Reported Past Surgical History: Section, Cholecystectomy, Hysterectomy, Uterine Ablation Additional Past Surgical History / Comment(s): D&C, partial hysterectomy (bilateral ovaries retained), EGD. Past Anesthesia/Blood Transfusion Reactions: No Reported Reaction Additional Past Anesthesia/Blood Transfusion Reaction / Comment(s): . Past Psychological History: Anxiety Smoking Status: Never smoker Past Alcohol Use History: Rare Past Drug Use History: None Reported - Past Family History Mother Family Medical History: Hypertension Father Additional Family Medical History / Comment(s): at age 46 from unknown causes. Brother(s) Family Medical History: Asthma Medications and Allergies Home Medications Medication Instructions Recorded Confirmed Type Escitalopram [Lexapro] 10 mg PO HS 10/21/18 02/27/19 History Allergies Allergy/AdvReac Type Severity Reaction Status Date / Time erythromycin base Allergy Severe throat Verified 02/27/19 08:16 closes up amoxicillin [From Augmentin] Allergy Rash/Hives Verified 02/27/19 08:16 clavulanic acid Allergy Rash/Hives Verified 02/27/19 08:16 [From Augmentin] sulfamethoxazole Allergy Rash/Hives Verified 02/27/19 08:16 [From Bactrim] trimethoprim [From Bactrim] Allergy Rash/Hives Verified 02/27/19 08:16 Surgical - Exam Vital Signs Temp Pulse Resp BP Pulse Ox 98.2 F 89 16 133/85 96 02/27/19 08:22 02/27/19 08:22 02/27/19 08:22 02/27/19 08:22 02/27/19 08:22 BMI 52 - General well developed, well nourished, no distress - Eyes PERRL - Neck no masses - Respiratory normal expansion - Cardiovascular Rhythm: regular - Abdomen Abdomen: soft, non tender Assessment and Plan Assessment: RBC, BMI 52. Patient will undergo laparoscopic sleeve gastrectomy.
[2019-02-27] MEDS ORDERED: KETAMINE 10 MG/ML 20 ML VIAL ONE (12:27)
[2019-02-27] MEDS ORDERED: PROPOFOL 10 MG/ML 20 ML VIAL IV ONE (12:27)
[2019-02-27] MEDS ORDERED: GLYCOPYRROLATE 0.2 MG/ML 2 ML VIAL ONE (12:27)
[2019-02-27] MEDS ORDERED: SUCCINYLCHOLINE CHLORIDE 100 MG/5 ML SYR IV ONE (12:27)
[2019-02-27] MEDS ORDERED: KETOROLAC 30 MG/ML 1 ML VIAL ONE (12:27)
[2019-02-27] MEDS ORDERED: DEXAMETHASONE SOD PHOS (MDV) 100 MG/10 ML VIAL ONE (12:27)
[2019-02-27] MEDS ORDERED: NEOSTIGMINE 1 MG/ML 10 ML VIAL ONE (12:27)
[2019-02-27] MEDS ORDERED: diphenhydrAMINE 50 MG/ML 1 ML VIAL ONE (12:27)
[2019-02-27] MEDS ORDERED: MIDAZOLAM 2 MG/2 ML VIAL ONE (12:27)
[2019-02-27] MEDS ORDERED: ROCURONIUM BROMIDE 10 MG/ML 10 ML VIAL IV ONE (12:27)
[2019-02-27] MEDS ORDERED: fentaNYL (PF) 50 MCG/ML 2 ML AMP ONE (12:27)
[2019-02-27] MEDS ORDERED: LIDOCAINE 1% INJ 10MG/ML (20 ML MDV) ONE (12:27)
[2019-02-27] MEDS ORDERED: LACTATED RINGERS 1,000 ML IV ONE (12:51)
[2019-02-27] MEDS ORDERED: BUPIVACAINE (PF) 0.25% 30 ML VIAL SQ ONE (12:56)
[2019-02-27] MEDS ORDERED: NALOXONE 0.4 MG/ML 1 ML VIAL IV PRN (13:34)
[2019-02-27] MEDS ORDERED: HYDROcodone/APAP 15 ML SOLUTION PO PRN (13:34)
--- NOTE | 2019-02-27 13:34 | P.OP ---
Date of Procedure: 02/27/19 Preoperative Diagnosis: Morbid obesity, BMI 52 Postoperative Diagnosis: Morbid obesity, BMI 52 Procedure(s) Performed: Laparoscopic sleeve gastrectomy Anesthesia: ANGELA Surgeon: Rob Russo Estimated Blood Loss (ml): 5 Pathology: other (Stomach) Condition: stable Disposition: PACU Description of Procedure: The patient was placed on the operating room table in the supine position. She received general anesthesia and then was placed in dorsal lithotomy position. Her abdomen was prepped and draped in sterile fashion. The skin incision sites were anesthetized 1% local Xylocaine. And then the skin was incised with an 11 blade in the left lateral position. Using a blade less trocar under direct visualization the peritoneal cavity was entered. The abdomen was insufflated and then a 5 mm laparoscope was placed into the peritoneal cavity. A 5 mm trocar was placed in the right epigastric, and right lateral position. A 15 mm trocar was placed in the supra-umbilical position and another 5 mm trocar was placed in the left lateral position. The left lateral lobe of the liver was retracted. The stomach was visualized. The greater curvature of the stomach was then dissected using the Harmonic scissors. The dissection occurred approximately 5 cm from the pylorus to the level of the left davis. There was no hiatal hernia seen. At this point a 40-Welsh bougie dilator was placed the oropharynx and passed into the esophagus and into the stomach by the SCARF AND ANNEAL OPERATOR. The sleeve gastrectomy was performed by using the powered echelon stapler with a seam guard buttress material. Sequential firings of the stapler were performed. The gastric remnant was then brought out through the 15 mm trocar site. The dilator was withdrawn. And a orogastric tube was replaced into the stomach. The stomach was insufflated with 200 mL of methylene blue normal saline. There was no evidence of extravasation. The abdomen was irrigated there is no bleeding seen. The Guille-Glenda device was used to close the 15 mm trocar with 0 Vicryl. Skin was closed with interrupted 3-0 Monocryl sutures once the trochars withdrawn. Dermabond dressing was applied. Patient was sent to recovery in stable condition.
[2019-02-27] MEDS: KETOROLAC 30 MG/ML 1 ML VIAL IVP SCH ×2 (14:07→20:36)
[2019-02-27] MEDS: HYDROmorphone 0.5 MG/0.5 ML SYRINGE IVP PRN ×4 (14:07→14:39)
[2019-02-27] MEDS: ALBUTEROL NEBULIZED 2.5 MG/3 ML INHALATION SCH ×2 (15:38→20:33)
[2019-02-27] MEDS: 0.9% NACL WITH KCL 20 MEQ/L 1,000 ML IV SCH ×3 (16:07→23:44)
[2019-02-27] MEDS: HYDROmorphone 1 MG/ML 1 ML SYRINGE IVP PRN ×2 (17:35→21:12)
[2019-02-27] MEDS: HYOSCYAMINE ORAL DROPS 1.875 MG/15 ML BOTTLE PO PRN (18:38)
[2019-02-27] MEDS: SIMETHICONE 40 MG/0.6 ML DROPS 2,000 MG/30 ML BOTTLE PO PRN (18:38)
[2019-02-27] MEDS ORDERED: ONDANSETRON 4 MG/2 ML VIAL IVP PRN (20:18)
[2019-02-27] MEDS: ENOXAPARIN 60 MG/0.6 ML SYRINGE SQ SCH (20:37)
--- NOTE | 2019-02-27 21:42 | P.CONS ---
History of Present Illness - Reason for Consult Consult date: 02/27/19 Medical management - Chief Complaint Laparoscopic sleeve gastrectomy - History of Present Illness Patient is a 31-year-old male with a known history of morbid obesity with BMI 51.6, asthma and history of anxiety was admitted to the hospital for elective laparoscopic sleeve gastrectomy. Patient tolerated the procedure well. Currently patient is complaining of nausea and abdominal discomfort. No complains of chest pain or shortness of breath. No headache or dizziness or lightheadedness. No fever no chills. Postoperatively patient blood pressure is elevated with SBP 150s. No cough or sputum production. Denied any recent illnesses. Review of Systems Constitutional: Patient denies any fever or chills . No generalized weakness or weight loss. Abdomen: Agent does have nausea no vomiting. Does have abdominal discomfort.. Cardiovascular: Patient denies any chest pain or short of breath no palpitations. Respiratory: patient denied any cough is from production. No shortness of breath Neurologic: Patient denied any numbness or tingling headache. Musculoskeletal: Patient denies any complaints of joint swelling or deformity. Skin: Negative Psychiatric: Negative Endocrine: No heat or cold intolerance. No recent weight gain. Genitourinary: No dysuria or hematuria. All other 14 point ROS negative except the above Past Medical History Past Medical History: Asthma Additional Past Medical History / Comment(s): GALLBLADDER DISEASE History of Any Multi-Drug Resistant Organisms: None Reported Past Surgical History: Section, Cholecystectomy, Hysterectomy, Uterine Ablation Additional Past Surgical History / Comment(s): D&C, partial hysterectomy (bilateral ovaries retained), EGD. Past Anesthesia/Blood Transfusion Reactions: No Reported Reaction Additional Past Anesthesia/Blood Transfusion Reaction / Comm: . Past Psychological History: Anxiety Smoking Status: Never smoker Past Alcohol Use History: Rare Past Drug Use History: None Reported - Past Family History Mother Family Medical History: Hypertension Father Additional Family Medical History / Comment(s): at age 46 from unknown causes. Brother(s) Family Medical History: Asthma Medications and Allergies Home Medications Medication Instructions Recorded Confirmed Type Escitalopram [Lexapro] 10 mg PO HS 10/21/18 02/27/19 History Allergies Allergy/AdvReac Type Severity Reaction Status Date / Time erythromycin base Allergy Severe throat Verified 02/27/19 08:16 closes up amoxicillin [From Augmentin] Allergy Rash/Hives Verified 02/27/19 08:16 clavulanic acid Allergy Rash/Hives Verified 02/27/19 08:16 [From Augmentin] sulfamethoxazole Allergy Rash/Hives Verified 02/27/19 08:16 [From Bactrim] trimethoprim [From Bactrim] Allergy Rash/Hives Verified 02/27/19 08:16 Physical Exam Vitals: Vital Signs Temp Pulse Pulse Resp BP Pulse Ox 02/27/19 14:44 88 18 157/74 02/27/19 14:33 89 18 166/84 98 02/27/19 14:18 87 18 165/84 98 02/27/19 14:04 91 18 170/86 100 02/27/19 13:54 98.2 F 101 H 16 169/89 99 02/27/19 08:22 98.2 F 89 16 133/85 96 Intake and Output 02/27/19 02/27/19 02/27/19 06:59 14:59 22:59 Intake Total 2100 Output Total 15 Balance 2084 Intake: IV 2099 Output: Estimated Blood Loss 15 PHYSICAL EXAMINATION: Patient is lying in the bed comfortably, no acute distress, awake alert and oriented.. HEENT: Normocephalic. Neck is supple. Pupils reactive. Nostrils clear. Oral cavity is moist. Ears reveal no drainage. Neck reveals no JVD, carotid bruits, or thyromegaly. CHEST EXAMINATION: Trachea is central. Symmetrical expansion. Bibasilar initiated treatment. Lung warren clear to auscultation and percussion. CARDIAC: Normal S1, S2 with no gallops. No murmurs ABDOMEN: Soft. Bowel sounds normal. No organomegaly. No abdominal bruits. Extremities: reveal no edema. No clubbing or cyanosis Neurologically awake, alert, oriented x3 with well-coordinated movements. No focal deficits noted Skin: No rash or skin lesions. Psychiatric: Coperative. Nonsuicidal Musculoskeletal: No joint swelling or deformity. Normal range of motion. Assessment and Plan Assessment: Status post laparoscopic sleeve gastrectomy postoperative day 0 Elevated blood pressure likely due to pain and abdominal discomfort. Morbid obesity BMI 51.6 Mild intermittent asthma Anxiety history of cholecystectomy, hysterectomy DVT prophylaxis Plan: Patient be continued on IV hydration and pain management and symptomatic management for nausea. Patient was encouraged with incentive spirometry and ambulation. Continue PPI. Will follow closely with you. Further recommendations based on the clinical course. Thank you for your consult. Time with Patient: Greater than 30
[2019-02-27] MEDS ORDERED: ENOXAPARIN 40 MG/0.4 ML SYRINGE SQ SCH (23:34)
[2019-02-28] MEDS: HYDROmorphone 1 MG/ML 1 ML SYRINGE IVP PRN ×6 (00:35→21:14)
[2019-02-28] MEDS: KETOROLAC 30 MG/ML 1 ML VIAL IVP SCH ×4 (03:31→20:37)
[2019-02-28] MEDS: 0.9% NACL WITH KCL 20 MEQ/L 1,000 ML IV SCH (03:31)
[2019-02-28] MEDS: LACTATED RINGERS 1,000 ML IV SCH (03:33)
--- NOTE | 2019-02-28 07:55 | FL ---
EXAMINATION TYPE: FL UGI DATE OF EXAM: 02/28/2019 LIMITED UGI: CLINICAL HISTORY: Morbid Obesity, gastric sleeve surgery yesterday. TECHNIQUE: Limited esophagram is performed utilizing 50 oz of Isovue-370. A total of 2.11 minutes of fluoroscopic time was utilized during procedure. 57 spot images are saved. COMPARISON: None. FINDINGS: The patient swallowed contrast without difficulty or delay. Esophageal peristalsis and mo tility are within normal limits. There is good flow of contrast along the diaphragmatic hiatus into proximal stomach and subsequent mild delay in flow into gastric sleeve. There is then pulling the mima ority of contrast in the distal one half of the esophagus with only a small amount of contrast in the gastric sleeve. There is moderate to severe delay in flow from distal distal anastomosis into pyloru s and duodenal sweep. Patient remains asymptomatic. After several minutes, contrast does flow and the n there is improved clearance from the distal anastomosis. There is no evidence of contrast extravasa tion to suggest leak. IMPRESSION: No evidence of leak status post recent gastric sleeve surgery. Moderate to severe distal anastomosis delay however patient remains asymptomatic and once this area opens there is fairly rapid clearance of contrast from the gastric sleeve and distal esophagus.
[2019-02-28 08:27] LABS: Basophils % (A) 0 %; Eosinophils # (A) 0.1 k/uL (0-0.7); Eosinophils % (A) 0 %; HCT 40.4 % (34.0-46.0); HGB 13.1 gm/dL (11.4-16.0); Lymphocytes # (A) 1.4 k/uL (1.0-4.8); Lymphocytes % (A) 6 %; MCH 27.9 pg (25.0-35.0); MCHC 32.3 g/dL (31.0-37.0); MCV 86.3 fL (80.0-100.0); Mean Platelet Volume 6.5; Monocytes # (A) 0.7 k/uL (0-1.0); Monocytes % (A) 3 %; Neutrophils # (A) 21.1 k/uL (1.3-7.7); Neutrophils % (A) 90 %; Platelet Count 337 k/uL (150-450); RBC 4.68 m/uL (3.80-5.40); RDW 13.8 % (11.5-15.5); WBC 23.4 k/uL (3.8-10.6)
[2019-02-28 08:51] LABS: African American GFR (CKD) >90 (>60 ml/min/1.73 sqM); Anion Gap 10 mmol/L; Blood Urea Nitrogen 10 mg/dL (7-17); Calcium 8.9 mg/dL (8.4-10.2); Carbon Dioxide 19 mmol/L (22-30); Chloride 110 mmol/L (98-107); Phosphorus 3.4 mg/dL (2.5-4.5); Potassium 4.6 mmol/L (3.5-5.1); Sodium 139 mmol/L (137-145)
[2019-02-28] MEDS: ALBUTEROL NEBULIZED 2.5 MG/3 ML INHALATION SCH ×4 (09:16→21:11)
[2019-02-28] MEDS: PANTOPRAZOLE 40 MG/10 ML VIAL IV SCH (09:21)
[2019-02-28] MEDS: ENOXAPARIN 60 MG/0.6 ML SYRINGE SQ SCH ×2 (09:22→20:36)
[2019-02-28 09:50] VITALS: BMI 51.6
--- NOTE | 2019-02-28 14:12 | P.PN ---
Subjective Progress Note Date: 02/28/19 CHIEF COMPLAINT: Morbid obesity HISTORY OF PRESENT ILLNESS: 33-year-old female who is status post sleeve gastrectomy. Postop day #1. Esophagram computed postoperatively negative for leak but does reveal moderate obstruction. She has been NPO. Pain is controlled. Nausea overnight but has improved today. WBC 23.4. PHYSICAL EXAM: VITAL SIGNS: Reviewed. GENERAL: Well-developed in no acute distress. HEENT: No sclera icterus. Extraocular movements grossly intact. Moist buccal mucosa. Head is atraumatic, normocephalic. ABDOMEN: Soft. Nondistended. Appropriate surgical tenderness. Surgical sites clean dry and intact. NEUROLOGIC: Alert and oriented. Cranial nerves II through XII grossly intact. ASSESSMENT: 1. Morbid obesity PLAN: 1. Begin bariatric clear liquid diet. Patient encouraged to start slow with oral intake 2. Begin Decadron 4 mg IV every 6 hours 3. Pain control 4. Increase activity as tolerated 5. Incentive spirometer 6. Begin Levaquin. Monitor WBC 7. Possible discharge home tomorrow Nurse practitioner note has been reviewed by physician. Signing provider agrees with the documented findings, assessment, and plan of care. Objective - Vital Signs Vital signs: Vital Signs Temp 98.5 F 02/28/19 07:00 Pulse 67 02/28/19 07:00 Resp 16 02/28/19 07:00 BP 126/89 02/28/19 07:00 Pulse Ox 96 02/28/19 09:17 Intake & Output 02/27/19 02/28/19 02/28/19 18:59 06:59 18:59 Intake Total 2100 0 Output Total 215 Balance 1885 0 Weight 145.15 kg Intake: IV 2100 Oral 0 Output: Urine 200 Estimated Blood Loss 15 Other: Voiding Method Toilet Toilet # Voids 1 2 - Labs CBC & Chem 7: 02/28/19 08:03 02/28/19 08:03 Labs: Abnormal Lab Results - Last 24 Hours (Table) 02/28/19 02/28/19 Range/Units 08:03 08:03 WBC 23.4 H (3.8-10.6) k/uL Neutrophils # 21.1 H (1.3-7.7) k/uL Chloride 110 H (98-107) mmol/L Carbon Dioxide 19 L (22-30) mmol/L
[2019-02-28] MEDS: LEVOFLOXACIN 500MG-D5W PMX 500 MG in DEXTROSE/WATER 1 100ML.BAG IVPB SCH (16:45)
[2019-02-28] MEDS: DEXAMETHASONE SOD PHOSPHATE 4 MG/ML 1 ML VIAL IV SCH ×2 (17:46→23:10)
--- NOTE | 2019-02-28 22:21 | P.PN ---
Subjective Progress Note Date: 02/28/19 Principal diagnosis: Status post laparoscopic sleeve gastrectomy Patient is a 31-year-old male with a known history of morbid obesity with BMI 51.6, asthma and history of anxiety was admitted to the hospital for elective laparoscopic sleeve gastrectomy. Patient tolerated the procedure well. Currently patient is complaining of nausea and abdominal discomfort. No complains of chest pain or shortness of breath. No headache or dizziness or lightheadedness. No fever no chills. Postoperatively patient blood pressure is elevated with SBP 150s. No cough or sputum production. Denied any recent illnesses. 02/28/2019 Patient denied any complaints of chest pain or shortness of breath. Abdominal pain is improving. No nausea no vomiting. Patient had upper GI series showed no evidence of leak.. Moderate to severe distal anastomosis delay. No fever no chills. Started on clear liquids . Current medications reviewed. Objective - Vital Signs Vital signs: Vital Signs Temp 97.9 F 02/28/19 19:18 Pulse 70 02/28/19 19:18 Resp 16 02/28/19 19:18 BP 133/77 02/28/19 19:18 Pulse Ox 99 02/28/19 16:33 Intake & Output 02/28/19 02/28/19 03/01/19 06:59 18:59 06:59 Intake Total 0 Balance 0 Weight 145.15 kg Intake: Oral 0 Other: Voiding Method Toilet # Voids 2 2 - Exam PHYSICAL EXAMINATION: Patient is lying in the bed comfortably, no acute distress, awake alert and oriented.. HEENT: Normocephalic. Neck is supple. Pupils reactive. Nostrils clear. Oral cavity is moist. Ears reveal no drainage. Neck reveals no JVD, carotid bruits, or thyromegaly. CHEST EXAMINATION: Trachea is central. Symmetrical expansion. Lung warren clear to auscultation and percussion. CARDIAC: Normal S1, S2 with no gallops. No murmurs ABDOMEN: Soft. Bowel sounds normal. No organomegaly. No abdominal bruits. Extremities: reveal no edema. No clubbing or cyanosis Neurologically awake, alert, oriented x3 with well-coordinated movements. No focal deficits noted Skin: No rash or skin lesions. Psychiatric: Coperative. Nonsuicidal Musculoskeletal: No joint swelling or deformity. Normal range of motion. - Labs CBC & Chem 7: 02/28/19 08:03 02/28/19 08:03 Labs: Abnormal Lab Results - Last 24 Hours (Table) 02/28/19 02/28/19 Range/Units 08:03 08:03 WBC 23.4 H (3.8-10.6) k/uL Neutrophils # 21.1 H (1.3-7.7) k/uL Chloride 110 H (98-107) mmol/L Carbon Dioxide 19 L (22-30) mmol/L Assessment and Plan Assessment: Status post laparoscopic sleeve gastrectomy postoperative day 1 Elevated blood pressure likely due to pain and abdominal discomfort. Currently normalized. Morbid obesity BMI 51.6 Mild intermittent asthma Anxiety history of cholecystectomy, hysterectomy DVT prophylaxis Plan: Patient be continued on IV hydration and pain management and symptomatic management for nausea. Patient was encouraged with incentive spirometry and ambulation. Continue PPI. Will follow closely with you. Further recommendations based on the clinical course. Time with Patient: Greater than 30
[2019-03-01] MEDS: KETOROLAC 30 MG/ML 1 ML VIAL IVP SCH ×2 (03:06→08:59)
[2019-03-01] MEDS: DEXAMETHASONE SOD PHOSPHATE 4 MG/ML 1 ML VIAL IV SCH ×3 (05:16→17:20)
[2019-03-01] MEDS: LACTATED RINGERS 1,000 ML IV SCH (05:17)
[2019-03-01 07:42] LABS: Basophils % (A) 0 %; Eosinophils % (A) 0 %; HCT 36.6 % (34.0-46.0); HGB 12.1 gm/dL (11.4-16.0); Lymphocytes % (A) 7 %; MCH 28.8 pg (25.0-35.0); MCHC 33.2 g/dL (31.0-37.0); MCV 86.8 fL (80.0-100.0); Mean Platelet Volume 6.4; Monocytes # (A) 0.2 k/uL (0-1.0); Monocytes % (A) 1 %; Neutrophils # (A) 11.5 k/uL (1.3-7.7); Neutrophils % (A) 90 %; Platelet Count 278 k/uL (150-450); RBC 4.21 m/uL (3.80-5.40); RDW 13.7 % (11.5-15.5); WBC 12.8 k/uL (3.8-10.6)
[2019-03-01] MEDS: ALBUTEROL NEBULIZED 2.5 MG/3 ML INHALATION SCH ×4 (07:47→20:52)
[2019-03-01] MEDS: PANTOPRAZOLE 40 MG/10 ML VIAL IV SCH (08:53)
[2019-03-01] MEDS: ENOXAPARIN 60 MG/0.6 ML SYRINGE SQ SCH ×2 (08:55→21:26)
[2019-03-01] MEDS: HYDROmorphone 1 MG/ML 1 ML SYRINGE IVP PRN ×4 (08:57→22:01)
--- NOTE | 2019-03-01 11:37 | P.PN ---
Subjective Progress Note Date: 03/01/19 Principal diagnosis: Morbid obesity Patient underwent sleeve gastrectomy 2 days ago. Postoperatively upper GI shows significant hesitancy. Patient feels about the same today as she did yesterday. Describes a chest pressure with drinking. Has taken very little liquids since yesterday. White blood cell count improved to 12.8, hemoglobin 12.1. Vitals are stable. Objective - Vital Signs Vital signs: Vital Signs Temp 98.1 F 03/01/19 07:00 Pulse 72 03/01/19 08:00 Resp 14 03/01/19 08:00 BP 175/84 03/01/19 07:00 Pulse Ox 96 03/01/19 07:00 Intake & Output 02/28/19 03/01/19 03/01/19 18:59 06:59 18:59 Intake Total 100 200 Balance 100 200 Weight 145.15 kg Intake: Oral 100 200 Other: Voiding Method Toilet # Voids 2 - Exam Abdomen: Soft, nondistended, no significant tenderness, incision clean and dry - Labs CBC & Chem 7: 03/01/19 06:58 02/28/19 08:03 Labs: Abnormal Lab Results - Last 24 Hours (Table) 03/01/19 Range/Units 06:58 WBC 12.8 H (3.8-10.6) k/uL Neutrophils # 11.5 H (1.3-7.7) k/uL Assessment and Plan (1) Morbid obesity Narrative/Plan: Patient with postoperative edema leading to persistent dysphagia. Continue bariatric clears. Continue steroids as ordered. Monitor labs. Ambulate. Current Visit: Yes Status: Acute Code(s): E66.01 - MORBID (SEVERE) OBESITY DUE TO EXCESS CALORIES SNOMED Code(s): 663691157
[2019-03-01] MEDS: LEVOFLOXACIN 500MG-D5W PMX 500 MG in DEXTROSE/WATER 1 100ML.BAG IVPB SCH (15:05)
--- NOTE | 2019-03-02 00:15 | P.PN ---
Subjective Progress Note Date: 03/01/19 Principal diagnosis: Status post laparoscopic sleeve gastrectomy Patient is a 31-year-old male with a known history of morbid obesity with BMI 51.6, asthma and history of anxiety was admitted to the hospital for elective laparoscopic sleeve gastrectomy. Patient tolerated the procedure well. Currently patient is complaining of nausea and abdominal discomfort. No complains of chest pain or shortness of breath. No headache or dizziness or lightheadedness. No fever no chills. Postoperatively patient blood pressure is elevated with SBP 150s. No cough or sputum production. Denied any recent illnesses. 02/28/2019 Patient denied any complaints of chest pain or shortness of breath. Abdominal pain is improving. No nausea no vomiting. Patient had upper GI series showed no evidence of leak.. Moderate to severe distal anastomosis delay. No fever no chills. Started on clear liquids . 03/01/2019 Patient is currently lying in the bed comfortably. Still having abdominal discomfort especially with swallowing. Does have nausea. No episodes of vomiting. Tolerating liquids otherwise. No fever no chills.. Chest pain or shortness of breath. Able to ambulate without support. WBC 12.8 and volume 12.1 Current medications reviewed. Objective - Vital Signs Vital signs: Vital Signs Temp 98.1 F 03/01/19 07:00 Pulse 72 03/01/19 08:00 Resp 14 03/01/19 08:00 BP 175/84 03/01/19 07:00 Pulse Ox 96 03/01/19 07:00 Intake & Output 02/28/19 03/01/19 03/01/19 18:59 06:59 18:59 Intake Total 100 200 Balance 100 200 Weight 145.15 kg Intake: Oral 100 200 Other: Voiding Method Toilet # Voids 2 - Exam PHYSICAL EXAMINATION: Patient is lying in the bed comfortably, no acute distress, awake alert and oriented.. HEENT: Normocephalic. Neck is supple. Pupils reactive. Nostrils clear. Oral cavity is moist. Ears reveal no drainage. Neck reveals no JVD, carotid bruits, or thyromegaly. CHEST EXAMINATION: Trachea is central. Symmetrical expansion. Lung warren clear to auscultation and percussion. CARDIAC: Normal S1, S2 with no gallops. No murmurs ABDOMEN: Soft. Bowel sounds normal. No organomegaly. No abdominal bruits. Extremities: reveal no edema. No clubbing or cyanosis Neurologically awake, alert, oriented x3 with well-coordinated movements. No focal deficits noted Skin: No rash or skin lesions. Psychiatric: Coperative. Nonsuicidal Musculoskeletal: No joint swelling or deformity. Normal range of motion. - Labs CBC & Chem 7: 03/01/19 06:58 02/28/19 08:03 Labs: Abnormal Lab Results - Last 24 Hours (Table) 03/01/19 Range/Units 06:58 WBC 12.8 H (3.8-10.6) k/uL Neutrophils # 11.5 H (1.3-7.7) k/uL Assessment and Plan Assessment: Status post laparoscopic sleeve gastrectomy postoperative day 2 Abdomen discomfort with food intake. Likely due to postoperative edema. Leukocytosis resolved. Elevated blood pressure likely due to pain and abdominal discomfort. Currently normalized. Morbid obesity BMI 51.6 Mild intermittent asthma Anxiety history of cholecystectomy, hysterectomy DVT prophylaxis Plan: Patient be continued on IV hydration and pain management and symptomatic management for nausea. Patient was encouraged with incentive spirometry and ambulation. Continue PPI. Will follow closely with you. Further recommendations based on the clinical course. Time with Patient: Greater than 30
[2019-03-02] MEDS: DEXAMETHASONE SOD PHOSPHATE 4 MG/ML 1 ML VIAL IV SCH ×3 (01:26→12:08)
[2019-03-02] MEDS: SIMETHICONE 40 MG/0.6 ML DROPS 2,000 MG/30 ML BOTTLE PO PRN (01:27)
[2019-03-02] MEDS: HYOSCYAMINE ORAL DROPS 1.875 MG/15 ML BOTTLE PO PRN (01:27)
[2019-03-02 02:18] VITALS: TEMP 98.2
[2019-03-02] MEDS: HYDROmorphone 1 MG/ML 1 ML SYRINGE IVP PRN ×2 (03:28→09:20)
[2019-03-02] MEDS: LACTATED RINGERS 1,000 ML IV SCH (06:32)
[2019-03-02 07:06] LABS: Basophils % (A) 0 %; Eosinophils % (A) 0 %; HCT 36.2 % (34.0-46.0); Lymphocytes # (A) 1.1 k/uL (1.0-4.8); Lymphocytes % (A) 11 %; MCH 28.5 pg (25.0-35.0); MCHC 33.3 g/dL (31.0-37.0); MCV 85.5 fL (80.0-100.0); Mean Platelet Volume 6.2; Monocytes # (A) 0.3 k/uL (0-1.0); Monocytes % (A) 3 %; Neutrophils # (A) 8.7 k/uL (1.3-7.7); Neutrophils % (A) 86 %; Platelet Count 264 k/uL (150-450); RBC 4.23 m/uL (3.80-5.40); RDW 13.7 % (11.5-15.5); WBC 10.1 k/uL (3.8-10.6)
[2019-03-02 07:34] VITALS: BP 119/73; PULSE 71; RESP 12
[2019-03-02] MEDS: ALBUTEROL NEBULIZED 2.5 MG/3 ML INHALATION SCH ×2 (08:19→12:09)
[2019-03-02] MEDS: PANTOPRAZOLE 40 MG/10 ML VIAL IV SCH (09:21)
[2019-03-02] MEDS: ENOXAPARIN 60 MG/0.6 ML SYRINGE SQ SCH (09:21)
--- NOTE | 2019-03-02 12:08 | P.DS ---
Providers Date of admission: 02/27/19 07:58 Expected date of discharge: 03/02/19 Attending physician: Rob Russo Consults: 02/27/19 13:34 Consult Physician Routine Consulting Provider: Laci Prado Consult Reason/Comments: MED MANAGE Do you want consulting provider notified?: Yes Primary care physician: Martha Sullivan - Discharge Diagnosis(es) (1) Morbid obesity 33-year-old female underwent elective sleeve gastrectomy. Postoperatively the patient had edema with associated dysphagia and reflux. The patient was not taking and very much liquids at all up until yesterday. Since yesterday she has taken an approximately 30-40 ounces. Doing well at this time. No dysphagia today at all. She is quite anxious to go home at this time. She is oriented had about 8-9 ounces this morning. Will discharge with plans for outpatient follow-up on Sunday at the bariatric center. Continue bariatric liquid diet. Prescription provided. Current Visit: Yes Status: Acute Plan - Discharge Summary Discharge Rx Participant: No New Discharge Prescriptions: New Sucralfate [Carafate] 1 gm PO BID #500 ml Hydrocodone/Acetaminophen [Valentine 5-325] 1 tab PO Q4HR PRN 3 Days #18 tab PRN Reason: Pain Simethicone 40 mg/0.6 ml Drops [Mylicon Drops] 40 mg PO PCHS PRN #30 ml PRN Reason: gas Omeprazole 40 mg PO DAILY #30 cap Ondansetron Odt [Zofran Odt] 4 mg PO Q8HR PRN #9 tab PRN Reason: Nausea Bisacodyl [Dulcolax] 5 mg PO DAILY PRN #10 tablet. PRN Reason: Constipation No Action Escitalopram [Lexapro] 10 mg PO HS Discharge Medication List Escitalopram [Lexapro] 10 mg PO HS 10/21/18 [History] Bisacodyl [Dulcolax] 5 mg PO DAILY PRN #10 tablet. 02/28/19 [Rx] Hydrocodone/Acetaminophen [Valentine 5-325] 1 tab PO Q4HR PRN 3 Days #18 tab 02/28/19 [Rx] Omeprazole 40 mg PO DAILY #30 cap 02/28/19 [Rx] Ondansetron Odt [Zofran Odt] 4 mg PO Q8HR PRN #9 tab 02/28/19 [Rx] Simethicone 40 mg/0.6 ml Drops [Mylicon Drops] 40 mg PO PCHS PRN #30 ml 02/28/19 [Rx] Sucralfate [Carafate] 1 gm PO BID #500 ml 02/28/19 [Rx] [place] [facility](s[place]Ref[place] 1 Week Activity/Diet/Wound Care/Special Instructions: No driving while taking Valentine No lifting over 10 pounds You may shower. No soaking or tub baths Very light activity until you are reevaluated at your follow up appointment with your surgeon
== END 2019-03-02 14:59 | disposition home or self-care (01) | DRG 621 ==
LOC: 2ORMAIN 07:58 → 4SSUR 14:00
PROVIDERS: ADMIT Surgery; ATTEND Surgery
PROC: 0DB64Z3 Excision of Stomach, Percutaneous Endoscopic Approach, Vertical (ICD-10-PCS; principal; 2019-02-27 09:40)
DX: E66.01 Morbid (severe) obesity due to excess calories (principal); Z68.43 Body mass index [BMI] 50.0-59.9, adult; Z90.49 Acquired absence of other specified parts of digestive tract; Z90.711 Acquired absence of uterus with remaining cervical stump; F41.9 Anxiety disorder, unspecified; Z82.49 Family history of ischemic heart disease and other diseases of the circulatory system; R11.0 Nausea; R03.0 Elevated blood-pressure reading, without diagnosis of hypertension; J45.20 Mild intermittent asthma, uncomplicated; R13.10 Dysphagia, unspecified; K21.9 Gastro-esophageal reflux disease without esophagitis; Z82.5 Family history of asthma and other chronic lower respiratory diseases; G89.18 Other acute postprocedural pain; R60.9 Edema, unspecified; Z88.1 Allergy status to other antibiotic agents; Z88.0 Allergy status to penicillin; Z88.2 Allergy status to sulfonamides; D72.829 Elevated white blood cell count, unspecified
CPT/HCPCS: 74240; 80051; 82310; 82565; 83735; 84100; 84520; 85025; 88307; 94760; 94762

== ENCOUNTER → 2019-03-04 | Outpatient (CLI) | payer BC ==
[2019-03-04 13:21] VITALS: BP 125/82; PULSE 82; TEMP 97.7; BMI 48.7
== END ==
LOC: BARWHC3 12:45
PROVIDERS: ATTEND Surgery
DX: Z09 Encounter for follow-up examination after completed treatment for conditions other than malignant neoplasm (principal); Z98.84 Bariatric surgery status; E66.01 Morbid (severe) obesity due to excess calories
CPT/HCPCS: 99211

== ENCOUNTER → 2019-03-10 | Outpatient (CLI) | payer BC ==
[2019-03-10 16:42] VITALS: BP 121/46; PULSE 82; TEMP 97.5; BMI 47.5
--- NOTE | 2019-03-10 17:31 | P.HPBAR ---
Bariatric H&P - History & Physicial H&P Date: 03/10/19 History & Physicial: Visit/CC: 11 days sleeve f/u (sx 02/27/19) Patient initial contact: Initial weight: 143.698 kg Initial weight in pounds: 316.80 Height: 5 ft 6 in Initial BMI: 51.1 Last weight: Current weight: 133.447 kg Current weight in pounds: 294.20 Current BMI: 47.5 [place] body weight (based on NIH guidelines): 58.967 kg Excess body weight loss: 12.0% The patient is a 33 year-old F who presents for Bariatric Assessment. The patient presents today for initial postop follow-up. She has lost 8 pounds since her last visit. She has no real complaints. Past Medical History Past Medical History: Asthma Additional Past Medical History / Comment(s): GALLBLADDER DISEASE History of Any Multi-Drug Resistant Organisms: None Reported Past Surgical History: Bariatric Surgery, Section, Cholecystectomy, Hysterectomy, Uterine Ablation Additional Past Surgical History / Comment(s): D&C, partial hysterectomy (bilateral ovaries retained) August 2017, EGD sleeve gastrectomy 02-27-19 Past Anesthesia/Blood Transfusion Reactions: No Reported Reaction Additional Past Anesthesia/Blood Transfusion Reaction / Comm: . Past Psychological History: Anxiety Additional Psychological History / Comment(s): . Smoking Status: Never smoker Past Alcohol Use History: Rare Past Drug Use History: None Reported - Past Family History Mother Family Medical History: Hypertension Father Additional Family Medical History / Comment(s): at age 46 from unknown causes. Surgical - Exam Vital Signs Temp Pulse BP 97.5 F L 82 121/46 03/10/19 16:24 03/10/19 16:24 03/10/19 16:24 - General well developed, well nourished, no distress - Eyes PERRL - ENT normal pinna - Neck no masses - Respiratory normal expansion - Cardiovascular Rhythm: regular - Abdomen Abdomen: soft, non tender Bariatric Assessment & Plan Plan: Status post sleeve gastrectomy. Patient is doing well. She'll follow-up in 2 weeks. Bariatric Checklist Checklist: Plan: Checklist: EGD: 1. Hiatal hernia: 2. H. Pylori: HgbA1c: Vitamin D: Smoking: Never smoker Primary care physician referral: Dr. Thomas Psychiatry clearance: Cardiology clearance: Sleep study: Diet journal: VTE risk score: VTE risk level: Rehab needs at discharge:
== END | disposition home or self-care (01) ==
LOC: BARWHC3 16:12
PROVIDERS: ATTEND Surgery
DX: Z48.815 Encounter for surgical aftercare following surgery on the digestive system (principal); Z98.84 Bariatric surgery status; Z90.49 Acquired absence of other specified parts of digestive tract; Z90.710 Acquired absence of both cervix and uterus; Z98.890 Other specified postprocedural states
CPT/HCPCS: 97803; 99211

== ENCOUNTER → 2019-03-24 | Outpatient (CLI) | payer BC ==
[2019-03-24 17:24] VITALS: BP 124/84; PULSE 81; TEMP 97.7; BMI 47.0
--- NOTE | 2019-03-24 17:49 | P.HPBAR ---
Bariatric H&P - History & Physicial H&P Date: 03/24/19 History & Physicial: Visit/CC: one month sleeve f/u (sx 02/27/19) Patient initial contact: Initial weight: 143.698 kg Initial weight in pounds: 316.80 Height: 5 ft 6 in Initial BMI: 51.1 Last weight: Current weight: 131.995 kg Current weight in pounds: 291.00 Current BMI: 47.0 [place] body weight (based on NIH guidelines): 58.967 kg Excess body weight loss: 13.8% The patient is a 33 year-old F who presents for Bariatric Assessment. Patient is 1 month status post sleeve gastrectomy. She is an excellent weight loss. Her GERD is minimal Past Medical History Past Medical History: Asthma Additional Past Medical History / Comment(s): GALLBLADDER DISEASE History of Any Multi-Drug Resistant Organisms: None Reported Past Surgical History: Bariatric Surgery, Section, Cholecystectomy, Hysterectomy, Uterine Ablation Additional Past Surgical History / Comment(s): D&C, partial hysterectomy (bilateral ovaries retained) August 2017, EGD sleeve gastrectomy 02-27-19 Past Anesthesia/Blood Transfusion Reactions: No Reported Reaction Additional Past Anesthesia/Blood Transfusion Reaction / Comm: . Past Psychological History: Anxiety Additional Psychological History / Comment(s): . Smoking Status: Never smoker Past Alcohol Use History: Rare Past Drug Use History: None Reported - Past Family History Mother Family Medical History: Hypertension Father Additional Family Medical History / Comment(s): at age 46 from unknown causes. Surgical - Exam Vital Signs Temp Pulse BP 97.7 F 81 124/84 03/24/19 16:30 03/24/19 16:30 03/24/19 16:30 - General well developed, well nourished, no distress - Eyes PERRL - ENT normal pinna - Neck no masses - Respiratory normal expansion - Cardiovascular Rhythm: regular - Abdomen Abdomen: soft, non tender Bariatric Assessment & Plan Plan: Status post sleeve gastrectomy. Patient is doing well. There is minimal will be observed. Bariatric Checklist Checklist: Plan: Checklist: EGD: 1. Hiatal hernia: 2. H. Pylori: HgbA1c: Vitamin D: Smoking: Never smoker Primary care physician referral: Dr. Thomas Psychiatry clearance: Cardiology clearance: Sleep study: Diet journal: VTE risk score: VTE risk level: Rehab needs at discharge:
== END | disposition home or self-care (01) ==
LOC: BARWHC3 16:07
PROVIDERS: ATTEND Surgery
DX: Z48.815 Encounter for surgical aftercare following surgery on the digestive system (principal); Z90.49 Acquired absence of other specified parts of digestive tract; Z98.84 Bariatric surgery status
CPT/HCPCS: 99211

== ENCOUNTER 2019-05-03 18:12 | Emergency (ER) | payer BC ==
[2019-05-03 18:17] VITALS: BP 139/85; PULSE 74; RESP 16; TEMP 97.4
[2019-05-03] MEDS ORDERED: KETOROLAC 30 MG/ML 1 ML VIAL IM STA (18:48)
--- NOTE | 2019-05-03 18:59 | XR ---
EXAMINATION TYPE: XR Hip RT and AP Pelvis DATE OF EXAM: 05/03/2019 COMPARISON: NONE HISTORY: Hip pain TECHNIQUE: 3 views FINDINGS: Pelvic ring is intact. Proximal right femur and hip joint appear intact. There is no sign o f hip dysplasia. Sacroiliac joints appear intact. IMPRESSION: Negative pelvis and right hip exam.
--- NOTE | 2019-05-03 19:02 | ED ---
General Adult HPI - General Chief complaint: Extremity Problem,Nontraumatic Stated complaint: Hip pain Time Seen by Provider: 05/03/19 18:24 Source: patient, RN notes reviewed Mode of arrival: ambulatory Limitations: no limitations - History of Present Illness Initial comments: 34-year-old female with a past medical history of asthma, hysterectomy presents to the emergency department for a chief complaint of right sided hip pain. States has been ongoing for about 4 months. States it is becoming painful to walk on the patient is able to ambulate. States usually radiates to her right groin or down her right leg. Denies any weakness of the lower extremities. Denies numbness or tingling of the lower extremities or in the groin or buttock. Denies bladder or bowel changes. Denies fevers or chills. Denies any significant back pain.Patient has no other complaints at this time including shortness of breath, chest pain, abdominal pain, nausea or vomiting, headache, or visual changes. - Related Data Home Medications Medication Instructions Recorded Confirmed Escitalopram [Lexapro] 10 mg PO HS 10/21/18 03/24/19 Previous Rx's Medication Instructions Recorded Bisacodyl [Dulcolax] 5 mg PO DAILY PRN #10 tablet. 02/28/19 Omeprazole 40 mg PO DAILY #30 cap 02/28/19 Ondansetron Odt [Zofran Odt] 4 mg PO Q8HR PRN #9 tab 02/28/19 Simethicone 40 mg/0.6 ml Drops 40 mg PO PCHS PRN #30 ml 02/28/19 [Mylicon Drops] Sucralfate [Carafate] 1 gm PO BID #500 ml 02/28/19 Allergies Allergy/AdvReac Type Severity Reaction Status Date / Time erythromycin base Allergy Severe throat Verified 05/03/19 18:16 closes up amoxicillin [From Augmentin] Allergy Rash/Hives Verified 05/03/19 18:16 clavulanic acid Allergy Rash/Hives Verified 05/03/19 18:16 [From Augmentin] sulfamethoxazole Allergy Rash/Hives Verified 05/03/19 18:16 [From Bactrim] trimethoprim [From Bactrim] Allergy Rash/Hives Verified 05/03/19 18:16 Review of Systems ROS Statement: Those systems with pertinent positive or pertinent negative responses have been documented in the HPI. ROS Other: All systems not noted in ROS Statement are negative. Past Medical History Past Medical History: Asthma Additional Past Medical History / Comment(s): GALLBLADDER DISEASE History of Any Multi-Drug Resistant Organisms: None Reported Past Surgical History: Bariatric Surgery, Section, Cholecystectomy, Hysterectomy, Uterine Ablation Additional Past Surgical History / Comment(s): D&C, partial hysterectomy (bilateral ovaries retained) August 2017, EGD sleeve gastrectomy 02-27-19 Past Anesthesia/Blood Transfusion Reactions: No Reported Reaction Additional Past Anesthesia/Blood Transfusion Reaction / Comment(s): . Past Psychological History: Anxiety Smoking Status: Never smoker Past Alcohol Use History: Rare Past Drug Use History: None Reported - Past Family History Mother Family Medical History: Hypertension Father Additional Family Medical History / Comment(s): at age 46 from unknown causes. General Exam Limitations: no limitations General appearance: alert, in no apparent distress Head exam: Present: atraumatic, normocephalic, normal inspection Eye exam: Present: normal appearance, PERRL, EOMI. Absent: scleral icterus, conjunctival injection, periorbital swelling ENT exam: Present: normal exam, mucous membranes moist Neck exam: Present: normal inspection, full ROM. Absent: tenderness, meningismus, lymphadenopathy Respiratory exam: Present: normal lung sounds bilaterally. Absent: respiratory distress, wheezes, rales, rhonchi, stridor Cardiovascular Exam: Present: regular rate, normal rhythm, normal heart sounds. Absent: systolic murmur, diastolic murmur, rubs, gallop, clicks Extremities exam: Present: full ROM (Patient has full flexion of the right hip but this does elicit pain. Patient has abduction to about 30 which causes pain in the right hip.), normal capillary refill (Refill less than 2 seconds, DP pulse 2+ in the right lower extremity.), other (Sensation intact in the right lower extremity). Absent: tenderness, pedal edema, joint swelling, calf tenderness (No significant tenderness of the calf, no erythema or ecchymosis.) Course Vital Signs 05/03/19 18:16 Temperature 97.4 F L Pulse Rate 74 Respiratory 16 Rate Blood Pressure 139/85 O2 Sat by Pulse 100 Oximetry Medical Decision Making - Medical Decision Making Patient presents for pain of the right hip. This has been ongoing for at least 4 months. Patient states pain worsens with movement. Patient is noted to have a BMI of 46. Passive range of motion does elicit moderate pain. Neurovascular status intact in the right lower extremity. No recent injuries. No red flag back pain symptoms. Urinalysis unremarkable. X-ray of the right hip and pelvis is unremarkable. At this time given the patient is ambulatory and walked to the x-ray and symptoms have been ongoing for 4 months, no history of fever do not see any emergent causes of hip pain. Patient is stable for discharge home to follow up with primary care. She will take Motrin and Tylenol for pain. She will return here if she is any worsening symptoms. - Lab Data Lab Results 05/03/19 Range/Units 18:41 Urine Color Yellow Urine Appearance Clear (Clear) Urine pH 5.5 (5.0-8.0) Ur Specific [place] 1.030 (1.001-1.035) Urine Protein Trace H (Negative) Urine Glucose (UA) Negative (Negative) Urine Ketones Negative (Negative) Urine Blood Negative (Negative) Urine Nitrite Negative (Negative) Urine Bilirubin Negative (Negative) Urine Urobilinogen 2.0 (<2.0) mg/dL Ur Leukocyte Esterase Negative (Negative) Disposition Clinical Impression: Hip pain Disposition: HOME SELF-CARE Condition: Good Instructions (If sedation given, give patient instructions): Hip Pain (ED) Additional Instructions: Please take Motrin and Tylenol for pain. Please follow-up with primary care in 1-2 days. Return here to the emergency department if you develop any worsening symptoms. Is patient prescribed a controlled substance at d/c from ED?: No Referrals: Laurie Thomas MD [Primary Care Provider] - 1-2 days Alvarez Le DO [Medical Doctor] - 1-2 days Time of Disposition: 19:31
[2019-05-03 19:11] LABS: Appearance,Urine Clear (Clear); Bilirubin,Urine Negative (Negative); Blood,Urine Negative (Negative); Color,Urine Yellow; Glucose,Urine (UA) Negative (Negative); Ketones,Urine Negative (Negative); Leukocyte Esterase,Urine Negative (Negative); Nitrite,Urine Negative (Negative); PH, Urine 5.5 (5.0-8.0); Protein,Urine Trace (Negative)
[2019-05-03] MEDS ORDERED: ACET/COD 300 MG/30 MG STARTER PACK 6 TAB BTL PO STA (19:35)
== END 2019-05-03 19:55 | disposition home or self-care (01) ==
LOC: EC 18:12
DX: M25.551 Pain in right hip (principal); F41.9 Anxiety disorder, unspecified; Z79.899 Other long term (current) drug therapy; Z88.1 Allergy status to other antibiotic agents; Z88.0 Allergy status to penicillin; Z88.2 Allergy status to sulfonamides
CPT/HCPCS: 81003; 73502; 99283; 96372; J1885

== ENCOUNTER 2019-11-17 15:44 | Emergency (ER) | payer BC ==
[2019-11-17 15:52] VITALS: TEMP 98.1
[2019-11-17] MEDS ORDERED: KETOROLAC 30 MG/ML 1 ML VIAL IVP STA (16:08)
[2019-11-17] MEDS ORDERED: SODIUM CHLORIDE 0.9% 1,000 ML IV STA (16:08)
--- NOTE | 2019-11-17 16:08 | ED ---
Abdominal Pain HPI - General Chief Complaint: Abdominal Pain Stated Complaint: Abd Pain Time Seen by Provider: 11/17/19 15:56 Source: patient Mode of arrival: ambulatory Limitations: no limitations - History of Present Illness Initial Comments: Patient is a 34-year-old female presenting to the emergency Department with complaints of right-sided abdominal pain has been increasing over the past 3 days. She describes the pain as above her belly button with some radiation across the upper right side of her abdomen. She states she also has some mild low back pain but she does have this on occasion. She admits to history of gastric sleeve, cholecystectomy, partial hysterectomy, , no other abdominal surgeries. Patient denies history of fever, chills. She states she does have some mild nausea, no vomiting or diarrhea. She denies any urinary symptoms such as dysuria or hematuria. She denies any chest pain or shortness of breath. She denies history of kidney stones. She has no further complaints at this time. Upon arrival to the ER, her vitals are stable. - Related Data Home Medications Medication Instructions Recorded Confirmed Escitalopram [Lexapro] 10 mg PO HS 10/21/18 03/24/19 Previous Rx's Medication Instructions Recorded Bisacodyl [Dulcolax] 5 mg PO DAILY PRN #10 tablet. 02/28/19 Omeprazole 40 mg PO DAILY #30 cap 02/28/19 Ondansetron Odt [Zofran Odt] 4 mg PO Q8HR PRN #9 tab 02/28/19 Simethicone 40 mg/0.6 ml Drops 40 mg PO PCHS PRN #30 ml 02/28/19 [Mylicon Drops] Sucralfate [Carafate] 1 gm PO BID #500 ml 02/28/19 Allergies Allergy/AdvReac Type Severity Reaction Status Date / Time erythromycin base Allergy Severe throat Verified 11/17/19 15:52 closes up amoxicillin [From Augmentin] Allergy Rash/Hives Verified 11/17/19 15:52 clavulanic acid Allergy Rash/Hives Verified 11/17/19 15:52 [From Augmentin] sulfamethoxazole Allergy Rash/Hives Verified 11/17/19 15:52 [From Bactrim] trimethoprim [From Bactrim] Allergy Rash/Hives Verified 11/17/19 15:52 Review of Systems ROS Statement: Those systems with pertinent positive or pertinent negative responses have been documented in the HPI. ROS Other: All systems not noted in ROS Statement are negative. Past Medical History Past Medical History: Asthma Additional Past Medical History / Comment(s): GALLBLADDER DISEASE History of Any Multi-Drug Resistant Organisms: None Reported Past Surgical History: Bariatric Surgery, Section, Cholecystectomy, Hysterectomy, Uterine Ablation Additional Past Surgical History / Comment(s): D&C, partial hysterectomy (bilateral ovaries retained) August 2017, EGD sleeve gastrectomy 02-27-19 Past Anesthesia/Blood Transfusion Reactions: No Reported Reaction Additional Past Anesthesia/Blood Transfusion Reaction / Comment(s): . Past Psychological History: Anxiety Smoking Status: Never smoker Past Alcohol Use History: Rare Past Drug Use History: None Reported - Past Family History Mother Family Medical History: Hypertension Father Additional Family Medical History / Comment(s): at age 46 from unknown causes. General Exam - General Exam Comments Initial Comments: GENERAL: Well-appearing, well-nourished and in no acute distress. HEAD: Atraumatic, normocephalic. EYES: Pupils equal round and reactive to light, extraocular movements intact, sclera anicteric, conjunctiva are normal. ENT: TMs normal, nares patent, oropharynx clear without exudates. Moist mucous membranes. NECK: Normal range of motion, supple without lymphadenopathy or JVD. LUNGS: Breath sounds clear to auscultation bilaterally and equal. No wheezes rales or rhonchi. HEART: Regular rate and rhythm without murmurs, rubs or gallops. ABDOMEN: Mild tender to palpation epigastric, right upper quadrant. No flank pain. No lower abdominal pain. Soft, normoactive bowel sounds. No guarding, no rebound. No masses appreciated. : Deferred EXTREMITIES: Normal range of motion, no pitting or edema. No clubbing or cyanosis. NEUROLOGICAL: Normal speech, normal gait. PSYCH: Normal mood, normal affect. SKIN: Warm, Dry, normal turgor, no rashes or lesions noted. Limitations: no limitations Course Vital Signs 11/17/19 15:48 Temperature 98.1 F Pulse Rate 67 Respiratory 18 Rate Blood Pressure 148/87 O2 Sat by Pulse 98 Oximetry Medical Decision Making - Medical Decision Making Patient is a 34-year-old female presenting with epigastric, right upper quadrant pain has been increasing the past 3 days. She has history of gastric sleeve, cholecystectomy, hysterectomy, . Vitals are stable. Labs are unremarkable, lactic acid is normal, lipase is normal. Urine is normal, no signs of hematuria or infection. I did do a CT of the abdomen with concern of a kidney stone. There is a small lesion on her liver, recommended outpatient follow-up. Appendix appears normal. Small right ovarian cyst, small fat containing ventral wall hernia. No other acute findings. Patient was given fluids, Toradol. She's been stable in the ER. I did discuss these findings with the patient. I recommended that she follow up with her PCP as well as a GI specialist. She is in agreement with this plan of care. She is stable for discharge. Return parameters were discussed with the patient she verbalized understanding. Case discussed with Dr. Valentine. - Lab Data Result diagrams: 11/17/19 16:32 11/17/19 16:32 Lab Results 11/17/19 11/17/19 11/17/19 Range/Units 16:32 16:32 16:32 WBC 7.2 (3.8-10.6) k/uL RBC 4.33 (3.80-5.40) m/uL Hgb 12.8 (11.4-16.0) gm/dL Hct 39.3 (34.0-46.0) % MCV 90.9 (80.0-100.0) fL MCH 29.7 (25.0-35.0) pg MCHC 32.6 (31.0-37.0) g/dL RDW 14.0 (11.5-15.5) % Plt Count 235 (150-450) k/uL Neutrophils % 65 % Lymphocytes % 26 % Monocytes % 5 % Eosinophils % 2 % Basophils % 0 % Neutrophils # 4.7 (1.3-7.7) k/uL Lymphocytes # 1.9 (1.0-4.8) k/uL Monocytes # 0.4 (0-1.0) k/uL Eosinophils # 0.1 (0-0.7) k/uL Basophils # 0.0 (0-0.2) k/uL PT 10.4 (9.0-12.0) sec INR 1.0 (<1.2) APTT 26.7 (22.0-30.0) sec Sodium 137 (137-145) mmol/L Potassium 4.8 (3.5-5.1) mmol/L Chloride 107 (98-107) mmol/L Carbon Dioxide 22 (22-30) mmol/L Anion Gap 8 mmol/L BUN 13 (7-17) mg/dL Creatinine 0.73 (0.52-1.04) mg/dL Est GFR (CKD-EPI)AfAm >90 (>60 ml/min/1.73 sqM) Est GFR (CKD-EPI)NonAf >90 (>60 ml/min/1.73 sqM) Glucose 88 (74-99) mg/dL Plasma Lactic Acid Frankie (0.7-2.0) mmol/L Calcium 8.8 (8.4-10.2) mg/dL Total Bilirubin 0.7 (0.2-1.3) mg/dL AST 27 (14-36) U/L ALT 8 (4-34) U/L Alkaline Phosphatase 78 (38-126) U/L Total Protein 6.3 (6.3-8.2) g/dL Albumin 4.0 (3.5-5.0) g/dL Amylase <30 L (30-110) U/L Lipase 38 (23-300) U/L Urine Color Urine Appearance (Clear) Urine pH (5.0-8.0) Ur Specific [place] (1.001-1.035) Urine Protein (Negative) Urine Glucose (UA) (Negative) Urine Ketones (Negative) Urine Blood (Negative) Urine Nitrite (Negative) Urine Bilirubin (Negative) Urine Urobilinogen (<2.0) mg/dL Ur Leukocyte Esterase (Negative) 11/17/19 11/17/19 Range/Units 16:32 16:33 WBC (3.8-10.6) k/uL RBC (3.80-5.40) m/uL Hgb (11.4-16.0) gm/dL Hct (34.0-46.0) % MCV (80.0-100.0) fL MCH (25.0-35.0) pg MCHC (31.0-37.0) g/dL RDW (11.5-15.5) % Plt Count (150-450) k/uL Neutrophils % % Lymphocytes % % Monocytes % % Eosinophils % % Basophils % % Neutrophils # (1.3-7.7) k/uL Lymphocytes # (1.0-4.8) k/uL Monocytes # (0-1.0) k/uL Eosinophils # (0-0.7) k/uL Basophils # (0-0.2) k/uL PT (9.0-12.0) sec INR (<1.2) APTT (22.0-30.0) sec Sodium (137-145) mmol/L Potassium (3.5-5.1) mmol/L Chloride (98-107) mmol/L Carbon Dioxide (22-30) mmol/L Anion Gap mmol/L BUN (7-17) mg/dL Creatinine (0.52-1.04) mg/dL Est GFR (CKD-EPI)AfAm (>60 ml/min/1.73 sqM) Est GFR (CKD-EPI)NonAf (>60 ml/min/1.73 sqM) Glucose (74-99) mg/dL Plasma Lactic Acid Frankie 0.6 L (0.7-2.0) mmol/L Calcium (8.4-10.2) mg/dL Total Bilirubin (0.2-1.3) mg/dL AST (14-36) U/L ALT (4-34) U/L Alkaline Phosphatase (38-126) U/L Total Protein (6.3-8.2) g/dL Albumin (3.5-5.0) g/dL Amylase (30-110) U/L Lipase (23-300) U/L Urine Color Light Yellow Urine Appearance Clear (Clear) Urine pH 7.0 (5.0-8.0) Ur Specific [place] 1.011 (1.001-1.035) Urine Protein Negative (Negative) Urine Glucose (UA) Negative (Negative) Urine Ketones Negative (Negative) Urine Blood Negative (Negative) Urine Nitrite Negative (Negative) Urine Bilirubin Negative (Negative) Urine Urobilinogen <2.0 (<2.0) mg/dL Ur Leukocyte Esterase Negative (Negative) Disposition Clinical Impression: Abdominal pain Disposition: HOME SELF-CARE Condition: Stable Instructions (If sedation given, give patient instructions): Abdominal Pain (ED) Additional Instructions: Please return to the Emergency Department if symptoms worsen or any other concerns. Follow up with PCP as discussed, also follow up with GI specialist if symptoms persist. Is patient prescribed a controlled substance at d/c from ED?: No Referrals: Virginia Valentine III, MD [Primary Care Provider] - 1-2 days
[2019-11-17 17:03] LABS: Basophils % (A) 0 %; Eosinophils # (A) 0.1 k/uL (0-0.7); Eosinophils % (A) 2 %; HCT 39.3 % (34.0-46.0); HGB 12.8 gm/dL (11.4-16.0); Lymphocytes # (A) 1.9 k/uL (1.0-4.8); Lymphocytes % (A) 26 %; MCH 29.7 pg (25.0-35.0); MCHC 32.6 g/dL (31.0-37.0); MCV 90.9 fL (80.0-100.0); Mean Platelet Volume 7.5; Monocytes # (A) 0.4 k/uL (0-1.0); Monocytes % (A) 5 %; Neutrophils # (A) 4.7 k/uL (1.3-7.7); Neutrophils % (A) 65 %; Platelet Count 235 k/uL (150-450); RBC 4.33 m/uL (3.80-5.40); WBC 7.2 k/uL (3.8-10.6)
[2019-11-17 17:04] LABS: Appearance,Urine Clear (Clear); Bilirubin,Urine Negative (Negative); Blood,Urine Negative (Negative); Color,Urine Light Yellow; Glucose,Urine (UA) Negative (Negative); Ketones,Urine Negative (Negative); Leukocyte Esterase,Urine Negative (Negative); Nitrite,Urine Negative (Negative); Protein,Urine Negative (Negative); Specific Gravity,Urine 1.011 (1.001-1.035); Urobilinogen,Urine <2.0 mg/dL (<2.0)
[2019-11-17 17:13] LABS: ALT 8 U/L (4-34); AST 27 U/L (14-36); African American GFR (CKD) >90 (>60 ml/min/1.73 sqM); Alkaline Phosphatase 78 U/L (38-126); Amylase <30 U/L (30-110); Anion Gap 8 mmol/L; Blood Urea Nitrogen 13 mg/dL (7-17); Calcium 8.8 mg/dL (8.4-10.2); Carbon Dioxide 22 mmol/L (22-30); Chloride 107 mmol/L (98-107); Glucose 88 mg/dL (74-99); Lipase 38 U/L (23-300); Non-African American GFR(CKD) >90 (>60 ml/min/1.73 sqM); Partial Thromboplastin Time 26.7 sec (22.0-30.0); Prothrombin Time 10.4 sec (9.0-12.0); Sodium 137 mmol/L (137-145); Total Bilirubin 0.7 mg/dL (0.2-1.3); Total Protein 6.3 g/dL (6.3-8.2)
[2019-11-17 17:15] LABS: Potassium 4.8 mmol/L (3.5-5.1)
--- NOTE | 2019-11-17 18:00 | CT ---
EXAMINATION TYPE: CT abdomen pelvis wo con DATE OF EXAM: 11/17/2019 HISTORY: Right sided abdominal pain. CT DLP: 1394.4 mGycm. Automated Exposure Control for Dose Reduction was Utilized. TECHNIQUE: CT scan of the abdomen and pelvis is performed without oral or IV contrast. COMPARISON: NONE FINDINGS: Within the limitations of a non-contrast study, the following observations are made. LUNG BASES: Dependent atelectasis. LIVER/GB: Liver isodense to slightly hypodense relative to spleen consistent with mild diffuse fatty infiltration. Nonspecific 1.7 cm round lesion anterior left hepatic lobe axial image 27. Consider fol low-up liver protocol contrast enhanced CT or MRI to better evaluate and characterize. Additional sub centimeter lesion favored benign axial image 38 anteriorly. Cholecystectomy clips. PANCREAS: No significant abnormality is seen. SPLEEN: There is 1.3 cm splenule inferior splenic hilum coronal image 57.. ADRENALS: No significant abnormality is seen. KIDNEYS: No renal stones or hydronephrosis bilaterally. BOWEL: Low-lying cecum into right pelvis. Suboptimal evaluation without enteric contrast. No suspicio us small or large bowel dilatation. Appendix not dilated extending medially from cecum. Surgical merlos ges from gastric sleeve surgery noted epigastric region GENITAL ORGANS: Uterus surgically absent or markedly atrophic. There is 2.4 cm low dense lesion right pelvis favoring ovarian cyst axial image 130. LYMPH NODES: No greater than 1cm abdominal or pelvic lymph nodes are appreciated. OSSEOUS STRUCTURES: Transitional type vertebra lumbosacral junction. OTHER: Small fat-containing ventral wall hernia above the umbilicus axial image 72. IMPRESSION: 1. Acute etiology of patient's right-sided abdominal pain not identified. Other findings as noted abo ve.
[2019-11-17 18:52] VITALS: BP 141/89; PULSE 89; RESP 16
== END 2019-11-17 18:51 | disposition home or self-care (01) ==
LOC: EC 15:44
DX: R10.11 Right upper quadrant pain (principal); N83.201 Unspecified ovarian cyst, right side; F41.9 Anxiety disorder, unspecified; Z79.899 Other long term (current) drug therapy; Z88.1 Allergy status to other antibiotic agents; Z88.0 Allergy status to penicillin; Z88.2 Allergy status to sulfonamides; K76.9 Liver disease, unspecified; Z90.49 Acquired absence of other specified parts of digestive tract; Z90.710 Acquired absence of both cervix and uterus
CPT/HCPCS: 36415; 80053; 82150; 83605; 83690; 85025; 85610; 85730; 81003; 74176; 99284; 96374; 96361; J1885

== ENCOUNTER → 2019-11-25 | Outpatient (CLI) | payer BC ==
[2019-11-25 15:23] LABS: Basophils % (A) 1 %; Eosinophils # (A) 0.2 k/uL (0-0.7); Eosinophils % (A) 3 %; HCT 39.4 % (34.0-46.0); HGB 13.3 gm/dL (11.4-16.0); Lymphocytes # (A) 1.6 k/uL (1.0-4.8); Lymphocytes % (A) 26 %; MCH 31.2 pg (25.0-35.0); MCHC 33.7 g/dL (31.0-37.0); MCV 92.6 fL (80.0-100.0); Mean Platelet Volume 7.3; Monocytes # (A) 0.5 k/uL (0-1.0); Monocytes % (A) 8 %; Neutrophils # (A) 3.9 k/uL (1.3-7.7); Neutrophils % (A) 62 %; Platelet Count 295 k/uL (150-450); RBC 4.25 m/uL (3.80-5.40); RDW 13.8 % (11.5-15.5); WBC 6.4 k/uL (3.8-10.6)
== END | disposition home or self-care (01) ==
LOC: LABPAT 14:37
PROVIDERS: ATTEND Surgery
DX: Z01.818 Encounter for other preprocedural examination (principal); K43.0 Incisional hernia with obstruction, without gangrene
CPT/HCPCS: 36415; 85025; 86850; 86900; 86901

== ENCOUNTER 2019-12-02 08:42 | Day surgery (SDC) | payer BC ==
[~2019-12-02 08:42] MED LIST changes: +ACETAMINOPHEN TAB 500 MG TAB PO ONE; -ENOXAPARIN 40 MG/0.4 ML SYRINGE SQ ONE; +HEPARIN SODIUM,PORCINE 5,000 UNIT/ML 1 ML VIAL SQ ONE; +LACTATED RINGERS 1,000 ML IV SCH; +LIDOCAINE 1% (10MG/ML) FOR IV START INTRADERMA PRN; -LIDOCAINE 1% 20 ML VIAL (10MG/ML) FOR IV START INTRADERMA PRN; +MIDAZOLAM 2 MG/2 ML VIAL IV PRN; -ceFAZolin 3 GM in SODIUM CHLORIDE 0.9% 100 ML IVPB ONE; -fentaNYL (PF) 50 MCG/ML 2 ML AMP IV PRN
[2019-12-02] MEDS ORDERED: ACETAMINOPHEN TAB 500 MG TAB ONE (09:31)
[2019-12-02] MEDS ORDERED: HEPARIN SODIUM,PORCINE 5,000 UNIT/ML 1 ML VIAL ONE (09:31)
[2019-12-02] MEDS ORDERED: ONDANSETRON 4 MG/2 ML VIAL ONE (09:32)
[2019-12-02] MEDS: ONDANSETRON 4 MG/2 ML VIAL IVP ONE ×2 (09:35→12:36)
--- NOTE | 2019-12-02 10:41 | P.GSHP ---
History of Present Illness H&P Date: 12/02/19 Chief Complaint: Incisional hernia This is a 34-year-old female who presents today for laparoscopic robotic system repair of incisional hernia. Patient developed incisional hernia located just above her umbilicus from previous gastric sleeve surgery. Past Medical History Past Medical History: Asthma Additional Past Medical History / Comment(s): GALLBLADDER DISEASE History of Any Multi-Drug Resistant Organisms: None Reported Past Surgical History: Bariatric Surgery, Section, Cholecystectomy, Hysterectomy, Uterine Ablation Additional Past Surgical History / Comment(s): D&C, partial hysterectomy (bilateral ovaries retained) August 2017, EGD sleeve gastrectomy 02-27-19 Past Anesthesia/Blood Transfusion Reactions: No Reported Reaction, Motion Sickness Additional Past Anesthesia/Blood Transfusion Reaction / Comment(s): . Past Psychological History: Anxiety Smoking Status: Never smoker Past Alcohol Use History: Rare Past Drug Use History: None Reported - Past Family History Mother Family Medical History: Hypertension Father Additional Family Medical History / Comment(s): at age 46 from unknown causes. Medications and Allergies Home Medications Medication Instructions Recorded Confirmed Type Albuterol Sulfate [Proair 1 dose IN DIRECTED PRN 11/27/19 12/02/19 History Respiclick] FLUoxetine HCL 40 mg PO HS 11/27/19 12/02/19 History Allergies Allergy/AdvReac Type Severity Reaction Status Date / Time erythromycin base Allergy Severe throat Verified 12/02/19 09:22 closes up amoxicillin [From Augmentin] Allergy Rash/Hives Verified 12/02/19 09:22 clavulanic acid Allergy Rash/Hives Verified 12/02/19 09:22 [From Augmentin] sulfamethoxazole Allergy Rash/Hives Verified 12/02/19 09:22 [From Bactrim] trimethoprim [From Bactrim] Allergy Rash/Hives Verified 12/02/19 09:22 Surgical - Exam Vital Signs Temp Pulse Resp BP Pulse Ox 97.4 F L 84 16 137/72 96 12/02/19 09:15 12/02/19 09:15 12/02/19 09:15 12/02/19 09:15 12/02/19 09:15 - General well developed, well nourished, no distress - Eyes PERRL - ENT normal pinna - Neck no masses - Respiratory normal expansion - Cardiovascular Rhythm: regular - Abdomen Abdomen: soft, non tender Assessment and Plan Assessment: Incisional hernia. We'll perform laparoscopic robotic-assisted repair.
[2019-12-02] MEDS ORDERED: LIDOCAINE 1% INJ 10MG/ML (20 ML MDV) ONE (10:51)
[2019-12-02] MEDS ORDERED: SUCCINYLCHOLINE CHLORIDE 100 MG/5 ML SYR IV ONE (10:51)
[2019-12-02] MEDS ORDERED: NEOSTIGMINE 1 MG/ML 10 ML VIAL ONE (10:51)
[2019-12-02] MEDS ORDERED: ROCURONIUM BROMIDE 10 MG/ML 5 ML VIAL IV ONE (10:51)
[2019-12-02] MEDS ORDERED: GLYCOPYRROLATE 0.2 MG/ML 2 ML VIAL ONE (10:51)
[2019-12-02] MEDS ORDERED: HYDROmorphone (PF) 1 MG/ML ONE (10:51)
[2019-12-02] MEDS ORDERED: MIDAZOLAM 2 MG/2 ML VIAL ONE (10:51)
[2019-12-02] MEDS ORDERED: PROPOFOL 10 MG/ML 20 ML VIAL IV ONE (10:51)
[2019-12-02] MEDS ORDERED: KETOROLAC 30 MG/ML 1 ML VIAL ONE (10:51)
[2019-12-02] MEDS ORDERED: fentaNYL (PF) 50 MCG/ML 2 ML AMP ONE (10:51)
[2019-12-02] MEDS ORDERED: BUPIVACAINE (PF) 0.25% 30 ML VIAL SQ ONE (11:14)
[2019-12-02] MEDS ORDERED: LACTATED RINGERS 1,000 ML IV ONE (12:07)
--- NOTE | 2019-12-02 12:17 | P.OP ---
Date of Procedure: 12/02/19 Preoperative Diagnosis: Incisional hernia Postoperative Diagnosis: Incisional hernia Procedure(s) Performed: Laparoscopic robotic-assisted repair of incisional hernia Anesthesia: ANGELA Surgeon: Rob Russo Estimated Blood Loss (ml): 5 Pathology: none sent Condition: stable Disposition: PACU Description of Procedure: The patient was placed on the operating table in the supine position. He received general anesthesia. His abdomen was prepped and draped usual fashion. Using a 5 mm optical trocar under direct visualization the peritoneal cavity was entered in the left upper quadrant. The abdomen was then insufflated. The laparoscope was placed back into the perineal cavity. Next a 8 mm robotic trocar was placed in the left lower quadrant and a 12 mm robotic trocar was placed in the left lateral position. The original 5 mm trocar was exchanged for a 8 mm robotic trocar. The patient's placed in the left side up position. And the patient was docked to the robot. The incisional hernia was visualized. Using hook cautery the peritoneum over the incisional hernia was excised. The fascial opening was repaired using 0V LOC suture. Next a piece of 11 cm round ventral light ST mesh was placed into the. Cavity and secured with 2 OV lock suture. The patient was undocked the robot. The needles were retrieved. The fascia of the 12 mm trocar site was closed with 0 Ethibond suture. Skin was closed interrupted 3-0 Monocryl suture. Dermabond dressings was applied. Patient tolerated procedure well and was sent to recovery room stable condition.
[2019-12-02 12:18] VITALS: TEMP 97.6
[2019-12-02] MEDS: HYDROmorphone 0.5 MG/0.5 ML SYRINGE IVP PRN ×4 (12:36→13:00)
[2019-12-02] MEDS ORDERED: diphenhydrAMINE 50 MG/ML 1 ML VIAL IVP ONE (13:19)
[2019-12-02] MEDS ORDERED: NALBUPHINE 10 MG/ML (1 ML AMP) IV ONE (14:15)
[2019-12-02 14:47] VITALS: BP 137/86; PULSE 84; RESP 18
== END 2019-12-02 15:18 | disposition home or self-care (01) ==
LOC: OR 08:42
PROVIDERS: ATTEND Surgery
DX: K43.2 Incisional hernia without obstruction or gangrene (principal); J45.909 Unspecified asthma, uncomplicated; Z98.84 Bariatric surgery status; Z90.49 Acquired absence of other specified parts of digestive tract; Z98.891 History of uterine scar from previous surgery; Z98.890 Other specified postprocedural states; Z90.711 Acquired absence of uterus with remaining cervical stump; F41.9 Anxiety disorder, unspecified; Z82.49 Family history of ischemic heart disease and other diseases of the circulatory system; Z79.899 Other long term (current) drug therapy; Z88.0 Allergy status to penicillin; Z88.1 Allergy status to other antibiotic agents; Z88.2 Allergy status to sulfonamides
CPT/HCPCS: 49654; J1200; J1644; J1100; J2300; J0690; J2405; J1170

== ENCOUNTER 2021-05-03 12:55 | Emergency (ER) | payer BC, OTHER ==
[2021-05-03] MEDS ORDERED: KETOROLAC 15 MG/ML 1 ML VIAL IVP STA (15:15)
[2021-05-03] MEDS ORDERED: ONDANSETRON 4 MG/2 ML VIAL IVP STA (15:15)
[2021-05-03 15:37] LABS: Basophils % (A) 0 %; Eosinophils # (A) 0.2 k/uL (0-0.7); Eosinophils % (A) 2 %; HCT 41.8 % (34.0-46.0); HGB 13.9 gm/dL (11.4-16.0); Lymphocytes % (A) 24 %; MCH 30.7 pg (25.0-35.0); MCHC 33.3 g/dL (31.0-37.0); MCV 92.2 fL (80.0-100.0); Mean Platelet Volume 7.6; Monocytes # (A) 0.3 k/uL (0-1.0); Monocytes % (A) 4 %; Neutrophils # (A) 5.6 k/uL (1.3-7.7); Neutrophils % (A) 68 %; Platelet Count 266 k/uL (150-450); RBC 4.53 m/uL (3.80-5.40); RDW 13.2 % (11.5-15.5); WBC 8.3 k/uL (3.8-10.6)
[2021-05-03 15:49] LABS: ALT 8 U/L (4-34); AST 13 U/L (14-36); African American GFR (CKD) >90 (>60 ml/min/1.73 sqM); Albumin 4.1 g/dL (3.5-5.0); Alkaline Phosphatase 94 U/L (38-126); Anion Gap 11 mmol/L; Blood Urea Nitrogen 12 mg/dL (7-17); Calcium 9.2 mg/dL (8.4-10.2); Carbon Dioxide 21 mmol/L (22-30); Chloride 106 mmol/L (98-107); Glucose 90 mg/dL (74-99); Non-African American GFR(CKD) >90 (>60 ml/min/1.73 sqM); Potassium 3.8 mmol/L (3.5-5.1); Sodium 138 mmol/L (137-145); Total Bilirubin 0.3 mg/dL (0.2-1.3); Total Protein 6.7 g/dL (6.3-8.2)
--- NOTE | 2021-05-03 16:03 | CT ---
EXAMINATION TYPE: CT abdomen pelvis w con DATE OF EXAM: 05/03/2021 COMPARISON: 11/17/2019 HISTORY: 36-year-old female Abdominal pain x1 week. TECHNIQUE: Contiguous axial scanning of the abdomen and pelvis following administration of 100 ml Iso nolberto 300 IV contrast. Delayed images through the kidneys and coronal/sagittal reconstructions perform ed. CT DLP: 1826.1 mGycm Automated exposure control for dose reduction was used. FINDINGS: Heart normal size without pericardial effusion. There are trace pleural effusions noted. Lung bases o therwise clear. Small hiatal hernia and postsurgical changes of sleeve gastrectomy. Some focal fat versus a cyst measuring 1.8 cm on the anterior falciform ligament. Liver enlarged measuring 19.4 cm. Portal venous system is patent. No biliary ductal dilatation. Aster cystectomy clips. Adrenal glands, kidneys, and pancreas within normal limits. The spleen is mildly enlarged at 14.0 cm with a hilar splenule. No dilated small bowel, free fluid, or free air. No mesenteric or retroperitoneal lymphadenopathy. A few clustered nonenlarged right lower quadrant mesenteric lymph nodes are noted. Some prominent fluid-filled small bowel loops in the mid to lower abdomen and some liquid stool in th e cecum. Segments of a normal appendix are visualized, for example, coronal image 46. Mild stool thro ughout the remainder of the colon. No pericolonic inflammatory change. Bladder distended. Uterus uterus not well seen, likely surgically absent. Heterogeneous rounded lesion within the left adnexa contain some internal fat, coronal image 48 measu ring 2.7 cm suggesting an ovarian dermoid. Right ovary is visualized. No abnormal fluid collection in the pelvis or pelvic lymphadenopathy. Bones: No osseous destructive process. IMPRESSION: 1. SOME PROMINENT FLUID-FILLED SMALL BOWEL LOOPS IN THE MID TO LOWER ABDOMEN AND SOME LIQUID STOOL IN THE CECUM. CONSIDER A MILD NONSPECIFIC ENTERITIS. SEGMENTS OF A NORMAL APPENDIX ARE VISUALIZED. 2. THERE ARE TRACE BILATERAL PLEURAL EFFUSIONS. ETIOLOGY UNCLEAR. FURTHER CLINICAL CORRELATION IS REC OMMENDED. 3. SMALL HIATAL HERNIA AND POSTSURGICAL CHANGE OF SLEEVE GASTRECTOMY. 4. MILD HEPATOSPLENOMEGALY (LIVER 19.4 CM AND SPLEEN 14.0 CM). 5. A 2.7 CM LEFT OVARIAN DERMOID CYST INCIDENTALLY NOTED.
[2021-05-03 16:52] VITALS: BP 160/89; PULSE 56; RESP 18; TEMP 98.2
--- NOTE | 2021-05-03 17:01 | ED ---
Abdominal Pain HPI - General Chief Complaint: Abdominal Pain Stated Complaint: abd pain Time Seen by Provider: 05/03/21 15:06 Source: patient Mode of arrival: ambulatory Limitations: no limitations - History of Present Illness Initial Comments: 36-year-old female presents emergency Department with reported left lower quadrant abdominal pain. Pain started one week ago and has been constant. States that it hurts to walk and move around. Pain is reproducible upon palpation. No associated urinary or bowel symptoms. No fevers. Admits to nausea without vomiting. Patient has history of reactive surgery, hysterectomy, cholecystectomy and abdominal wall hernia repair a few months ago. States that she felt a pop in her left lower quadrant previous to the pain starting. [place] a bulge which was able to be reproduced but pain has been constant. She presents today requesting CT to see if she has another hernia. No other alleviating, precipitating or modifying factors - Related Data Home Medications Medication Instructions Recorded Confirmed Albuterol Sulfate [Proair 1 dose IN DIRECTED PRN 11/27/19 12/02/19 Respiclick] FLUoxetine HCL 40 mg PO HS 11/27/19 12/02/19 Previous Rx's Medication Instructions Recorded Docusate [Colace] 100 mg PO BID #20 capsule 12/02/19 HYDROcodone/APAP 5-325MG [[place] 1 tab PO Q6HR PRN #10 tab 12/02/19 5-325] Allergies Allergy/AdvReac Type Severity Reaction Status Date / Time erythromycin base Allergy Severe throat Verified 12/02/19 09:22 closes up amoxicillin [From Augmentin] Allergy Rash/Hives Verified 12/02/19 09:22 clavulanic acid Allergy Rash/Hives Verified 12/02/19 09:22 [From Augmentin] sulfamethoxazole Allergy Rash/Hives Verified 12/02/19 09:22 [From Bactrim] trimethoprim [From Bactrim] Allergy Rash/Hives Verified 12/02/19 09:22 Review of Systems ROS Statement: Those systems with pertinent positive or pertinent negative responses have been documented in the HPI. ROS Other: All systems not noted in ROS Statement are negative. Past Medical History Past Medical History: Asthma Additional Past Medical History / Comment(s): GALLBLADDER DISEASE History of Any Multi-Drug Resistant Organisms: None Reported Past Surgical History: Bariatric Surgery, Section, Cholecystectomy, Hysterectomy, Uterine Ablation Additional Past Surgical History / Comment(s): D&C, partial hysterectomy (bilateral ovaries retained) August 2017, EGD sleeve gastrectomy 02-27-19 Past Anesthesia/Blood Transfusion Reactions: No Reported Reaction, Motion Sickness Additional Past Anesthesia/Blood Transfusion Reaction / Comment(s): . Past Psychological History: Anxiety Smoking Status: Never smoker Past Alcohol Use History: Rare Past Drug Use History: None Reported - Past Family History Mother Family Medical History: Hypertension Father Additional Family Medical History / Comment(s): at age 46 from unknown causes. General Exam Limitations: no limitations General appearance: alert, in no apparent distress Head exam: Present: atraumatic, normocephalic, normal inspection Eye exam: Present: normal appearance, PERRL, EOMI. Absent: scleral icterus, conjunctival injection, periorbital swelling ENT exam: Present: normal exam, mucous membranes moist Neck exam: Present: normal inspection. Absent: tenderness, meningismus, lymphadenopathy Respiratory exam: Present: normal lung sounds bilaterally. Absent: respiratory distress, wheezes, rales, rhonchi, stridor Cardiovascular Exam: Present: regular rate, normal rhythm, normal heart sounds. Absent: systolic murmur, diastolic murmur, rubs, gallop, clicks GI/Abdominal exam: Present: soft, normal bowel sounds. Absent: distended, tenderness, guarding, rebound, rigid, hernia Extremities exam: Present: normal inspection, full ROM, normal capillary refill. Absent: tenderness, pedal edema, joint swelling, calf tenderness Back exam: Present: normal inspection Neurological exam: Present: alert, oriented X3, CN II-XII intact Psychiatric exam: Present: normal affect, normal mood Skin exam: Present: warm, dry, intact, normal color. Absent: rash Course Vital Signs 05/03/21 05/03/21 12:58 16:52 Temperature 96.9 F L 98.2 F Pulse Rate 69 56 L Respiratory 16 18 Rate Blood Pressure 157/101 160/89 O2 Sat by Pulse 100 98 Oximetry Medical Decision Making - Medical Decision Making Upon arrival patient is placed into hallway 26. A thorough history and physical exam was performed. IV had been established previously to me evaluating the patient. Laboratory studies are conducted. Patient sent for a CT of the abdomen and pelvis which demonstrates some prominent fluid filled small bowel loops in the mid to lower abdomen and some liquid stool in the cecum. Consider mild nonspecific enteritis. Trace bilateral pleural effusions. Small hiatal hernia and postsurgical change of a sleeve gastrectomy. Mild hepatosplenomegaly 2.7 cm left ovarian dermoid cyst is incidental. Results are discussed with the patient. She had been given 15 mg of Toradol and 4 mg Zofran for her pain. I discussed the patient's findings. She will be discharged home and is instructed to follow-up with her [facility] in regards to her dermoid cyst. Follow-up with Dr. Dwyer in regards to her hernia history. Return to the emergency room for any new or worsening symptoms. Patient agreed and was discharged home in stable condition - Lab Data Result diagrams: 05/03/21 15:25 05/03/21 15:25 Lab Results 05/03/21 05/03/21 Range/Units 15:25 15:25 WBC 8.3 (3.8-10.6) k/uL RBC 4.53 (3.80-5.40) m/uL Hgb 13.9 (11.4-16.0) gm/dL Hct 41.8 (34.0-46.0) % MCV 92.2 (80.0-100.0) fL MCH 30.7 (25.0-35.0) pg MCHC 33.3 (31.0-37.0) g/dL RDW 13.2 (11.5-15.5) % Plt Count 266 (150-450) k/uL MPV 7.6 Neutrophils % 68 % Lymphocytes % 24 % Monocytes % 4 % Eosinophils % 2 % Basophils % 0 % Neutrophils # 5.6 (1.3-7.7) k/uL Lymphocytes # 2.0 (1.0-4.8) k/uL Monocytes # 0.3 (0-1.0) k/uL Eosinophils # 0.2 (0-0.7) k/uL Basophils # 0.0 (0-0.2) k/uL Sodium 138 (137-145) mmol/L Potassium 3.8 (3.5-5.1) mmol/L Chloride 106 (98-107) mmol/L Carbon Dioxide 21 L (22-30) mmol/L Anion Gap 11 mmol/L BUN 12 (7-17) mg/dL Creatinine 0.74 (0.52-1.04) mg/dL Est GFR (CKD-EPI)AfAm >90 (>60 ml/min/1.73 sqM) Est GFR (CKD-EPI)NonAf >90 (>60 ml/min/1.73 sqM) Glucose 90 (74-99) mg/dL Calcium 9.2 (8.4-10.2) mg/dL Total Bilirubin 0.3 (0.2-1.3) mg/dL AST 13 L (14-36) U/L ALT 8 (4-34) U/L Alkaline Phosphatase 94 (38-126) U/L Total Protein 6.7 (6.3-8.2) g/dL Albumin 4.1 (3.5-5.0) g/dL Disposition Clinical Impression: Abdominal pain, Ovarian cyst Disposition: HOME SELF-CARE Condition: Stable Instructions (If sedation given, give patient instructions): Abdominal Pain (ED) Additional Instructions: Please follow-up with your [facility] in regards to your ovarian cyst. Also follow- up with Dr. Russo for further concern of hernia. Return to the emergency department for any new or worsening symptoms Is patient prescribed a controlled substance at d/c from ED?: No Referrals: Virginia Valentine III, MD [Primary Care Provider] - 1-2 days Time of Disposition: 17:14
== END 2021-05-03 17:20 | disposition home or self-care (01) ==
LOC: EC 12:55
DX: N83.202 Unspecified ovarian cyst, left side (principal); J45.909 Unspecified asthma, uncomplicated; Z88.2 Allergy status to sulfonamides; Z88.0 Allergy status to penicillin; Z88.1 Allergy status to other antibiotic agents
CPT/HCPCS: 36415; 80053; 85025; 74177; 99284; 96374; 96375; J2405; J1885; Q9967

== ENCOUNTER 2021-07-09 13:25 | Emergency (ER) | payer OTHER ==
[2021-07-09 13:29] VITALS: TEMP 98.1
[2021-07-09] MEDS ORDERED: KETOROLAC 15 MG/ML 1 ML VIAL IVP STA (14:02)
[2021-07-09] MEDS ORDERED: SODIUM CHLORIDE 0.9% 1,000 ML IV STA (14:02)
[2021-07-09 14:27] LABS: Basophils % (A) 0 %; Eosinophils # (A) 0.3 k/uL (0-0.7); Eosinophils % (A) 2 %; HCT 41.6 % (34.0-46.0); HGB 13.8 gm/dL (11.4-16.0); Lymphocytes # (A) 2.3 k/uL (1.0-4.8); Lymphocytes % (A) 22 %; MCHC 33.3 g/dL (31.0-37.0); MCV 90.2 fL (80.0-100.0); Monocytes # (A) 0.5 k/uL (0-1.0); Monocytes % (A) 5 %; Neutrophils # (A) 7.2 k/uL (1.3-7.7); Neutrophils % (A) 70 %; Platelet Count 340 k/uL (150-450); RBC 4.61 m/uL (3.80-5.40); RDW 14.1 % (11.5-15.5); WBC 10.4 k/uL (3.8-10.6)
--- NOTE | 2021-07-09 14:28 | ED ---
General Adult HPI - General Chief complaint: Urogenital Stated complaint: uti or kidney stone Time Seen by Provider: 07/09/21 13:39 Source: patient, RN notes reviewed Mode of arrival: ambulatory Limitations: no limitations - History of Present Illness Initial comments: 36-year-old female presents to the emergency room for left mid back pain and pain with urination. Patient states this started 2 or 3 days ago. States she initially was nauseous and vomiting. The pain she felt was in her back and left lower quadrant. She then started having issues urinating and is having urinary frequency. Patient denies any fevers. She denies upper back pain. No history of kidney stones. The pain is worse when she is urinating. Patient has no other complaints at this time including shortness of breath, chest pain, nausea or vomiting, headache, or visual changes. - Related Data Home Medications Medication Instructions Recorded Confirmed FLUoxetine HCL 80 mg PO HS 11/27/19 07/09/21 Phenazopyridine HCl 95 mg PO TID PRN 07/09/21 07/09/21 traZODone HCL 100 mg PO HS 07/09/21 07/09/21 Allergies Allergy/AdvReac Type Severity Reaction Status Date / Time erythromycin base Allergy Severe Anaphylaxis Verified 07/09/21 14:23 amoxicillin [From Augmentin] Allergy Anaphylaxis Verified 07/09/21 14:23 clavulanic acid Allergy Anaphylaxis Verified 07/09/21 14:23 [From Augmentin] sulfamethoxazole Allergy Rash/Hives Verified 07/09/21 14:23 [From Bactrim] trimethoprim [From Bactrim] Allergy Rash/Hives Verified 07/09/21 14:23 Review of Systems ROS Statement: Those systems with pertinent positive or pertinent negative responses have been documented in the HPI. ROS Other: All systems not noted in ROS Statement are negative. Past Medical History Past Medical History: Asthma Additional Past Medical History / Comment(s): GALLBLADDER DISEASE History of Any Multi-Drug Resistant Organisms: None Reported Past Surgical History: Bariatric Surgery, Section, Cholecystectomy, Hysterectomy, Uterine Ablation Additional Past Surgical History / Comment(s): D&C, partial hysterectomy (bilateral ovaries retained) August 2017, EGD sleeve gastrectomy 02-27-19 Past Anesthesia/Blood Transfusion Reactions: No Reported Reaction, Motion Sickness Additional Past Anesthesia/Blood Transfusion Reaction / Comment(s): . Past Psychological History: Anxiety Smoking Status: Never smoker Past Alcohol Use History: Rare Past Drug Use History: None Reported - Past Family History Mother Family Medical History: Hypertension Father Additional Family Medical History / Comment(s): at age 46 from unknown causes. General Exam Limitations: no limitations General appearance: alert, in no apparent distress Head exam: Present: atraumatic Eye exam: Present: normal appearance, PERRL, EOMI. Absent: scleral icterus, conjunctival injection ENT exam: Present: normal exam, mucous membranes moist Neck exam: Present: normal inspection, full ROM. Absent: tenderness, m eningismus Respiratory exam: Present: normal lung sounds bilaterally. Absent: respiratory distress, wheezes Cardiovascular Exam: Present: regular rate, normal rhythm, normal heart sounds GI/Abdominal exam: Present: soft, normal bowel sounds. Absent: distended, tenderness Neurological exam: Present: alert Course Vital Signs 07/09/21 07/09/21 13:27 16:00 Temperature 98.1 F Pulse Rate 73 59 L Respiratory 18 16 Rate Blood Pressure 152/105 161/85 O2 Sat by Pulse 98 98 Oximetry Medical Decision Making - Medical Decision Making Vitals are stable. CBC and CMP are unremarkable. HPI and physical exam as documented. No significant abdominal tenderness. Urinalysis does not show any evidence of infection. Culture will be obtained. Patient was given fluids and pain medication which did help with her symptoms. CT abdomen and pelvis without contrast was obtained for stone protocol given clinically that was my suspicion. 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 A pelvic ultrasound was obtained to rule out torsion. Care signed out to Dr Bates pending ultrasound. - Lab Data Result diagrams: 07/09/21 14:15 07/09/21 14:15 Lab Results 07/09/21 07/09/21 07/09/21 Range/Units 14:15 14:15 14:15 WBC 10.4 (3.8-10.6) k/uL RBC 4.61 (3.80-5.40) m/uL Hgb 13.8 (11.4-16.0) gm/dL Hct 41.6 (34.0-46.0) % MCV 90.2 (80.0-100.0) fL MCH 30.0 (25.0-35.0) pg MCHC 33.3 (31.0-37.0) g/dL RDW 14.1 (11.5-15.5) % Plt Count 340 (150-450) k/uL MPV 7.0 Neutrophils % 70 % Lymphocytes % 22 % Monocytes % 5 % Eosinophils % 2 % Basophils % 0 % Neutrophils # 7.2 (1.3-7.7) k/uL Lymphocytes # 2.3 (1.0-4.8) k/uL Monocytes # 0.5 (0-1.0) k/uL Eosinophils # 0.3 (0-0.7) k/uL Basophils # 0.0 (0-0.2) k/uL Sodium 138 (137-145) mmol/L Potassium 3.8 (3.5-5.1) mmol/L Chloride 109 H (98-107) mmol/L Carbon Dioxide 21 L (22-30) mmol/L Anion Gap 8 mmol/L BUN 12 (7-17) mg/dL Creatinine 0.75 (0.52-1.04) mg/dL Est GFR (CKD-EPI)AfAm >90 (>60 ml/min/1.73 sqM) Est GFR (CKD-EPI)NonAf >90 (>60 ml/min/1.73 sqM) Glucose 88 (74-99) mg/dL Calcium 8.9 (8.4-10.2) mg/dL Total Bilirubin 0.7 (0.2-1.3) mg/dL AST 18 (14-36) U/L ALT 9 (4-34) U/L Alkaline Phosphatase 96 (38-126) U/L Total Protein 6.3 (6.3-8.2) g/dL Albumin 3.8 (3.5-5.0) g/dL Amylase 34 (30-110) U/L Lipase 49 (23-300) U/L Urine Color [place] Urine Appearance Clear (Clear) Urine RBC <1 (0-5) /hpf Urine WBC 1 (0-5) /hpf Ur Squamous Epith Cells 5 H (0-4) /hpf Amorphous Sediment Rare H (None) /hpf Urine Bacteria Rare H (None) /hpf Disposition Clinical Impression: Ovarian cyst, Abdominal pain Disposition: HOME SELF-CARE Condition: Good Instructions (If sedation given, give patient instructions): Abdominal Pain (ED), Ovarian Cyst (ED) Additional Instructions: Please follow up with primary care and OBGYN. Take motrin for pain. Return to the ER for any worsening symptoms. Is patient prescribed a controlled substance at d/c from ED?: No Referrals: Virginia Valentine III, MD [Primary Care Provider] - 1-2 days Time of Disposition: 17:23
[2021-07-09 14:39] LABS: ALT 9 U/L (4-34); AST 18 U/L (14-36); African American GFR (CKD) >90 (>60 ml/min/1.73 sqM); Albumin 3.8 g/dL (3.5-5.0); Alkaline Phosphatase 96 U/L (38-126); Amylase 34 U/L (30-110); Anion Gap 8 mmol/L; Blood Urea Nitrogen 12 mg/dL (7-17); Calcium 8.9 mg/dL (8.4-10.2); Carbon Dioxide 21 mmol/L (22-30); Chloride 109 mmol/L (98-107); Glucose 88 mg/dL (74-99); Lipase 49 U/L (23-300); Non-African American GFR(CKD) >90 (>60 ml/min/1.73 sqM); Sodium 138 mmol/L (137-145); Total Bilirubin 0.7 mg/dL (0.2-1.3); Total Protein 6.3 g/dL (6.3-8.2)
[2021-07-09 14:53] LABS: Potassium 3.8 mmol/L (3.5-5.1)
[2021-07-09 14:54] LABS: Amorphous Sediment,Urine Rare /hpf; Bacteria,Urine Rare /hpf; RBC,Urine <1 /hpf (0-5); Squamous Epithelial Cell,Urine 5 /hpf (0-4); WBC,Urine 1 /hpf (0-5)
[2021-07-09 14:56] LABS: Appearance,Urine Clear (Clear)
[2021-07-09 14:57] LABS: Color,Urine Dark Orange
--- NOTE | 2021-07-09 15:15 | CT ---
EXAMINATION TYPE: CT abdomen pelvis wo con DATE OF EXAM: 07/09/2021 COMPARISON: 11/17/2019 and 05/03/2021 HISTORY: left flank pain CT DLP: 1376.4 mGycm Automated exposure control for dose reduction was used. Images obtained from the diaphragm to the floor the pelvis with no contrast. Lung bases are clear. There is no pleural effusion. Heart size is normal. There is no pericardial eff usion. There are multiple surgical clips from gastric bariatric surgery. Spleen is intact. There is n o evidence of pancreatic mass. There are clips from cholecystectomy. Bile ducts are not dilated. Live r shows no focal defect. Heart is top normal in size. There is no pericardial effusion. There is no adrenal mass. Kidneys of normal size. There is no hydronephrosis. The ureters are not dil ated. There is no retroperitoneal adenopathy. Bladder distends smoothly. There is no inguinal hernia. There is no free fluid in the pelvis. There is hysterectomy. There is no free fluid in the pelvis. Lumbar vertebrae abnormal alignment. There is no compression fracture. Bony pelvis is intact. Hip lauri nts are intact. Appendix appears normal. There is no mesenteric edema. There is no ascites or free ai r. There is no bowel obstruction. There is oval shaped mixed density mass in the high left adnexal region measuring 2.8 x 1.8 cm. This contains soft tissue and fat density. Size is not significantly different than 05/03/2021 CT scan. 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 No acute abnormality in the abdomen pelvis. There is clearing of small pleural effusions compared to old exam. No renal stone or obstruction.
[2021-07-09] MEDS ORDERED: MORPHINE SULFATE 4 MG/ML SYRINGE IVP STA (15:49)
[2021-07-09 16:01] VITALS: RESP 16
[2021-07-09] MEDS ORDERED: ONDANSETRON 4 MG/2 ML VIAL IVP STA (16:34)
--- NOTE | 2021-07-09 18:02 | US ---
EXAMINATION TYPE: US pelvis complete transvag DATE OF EXAM: 07/09/2021 COMPARISON: NONE CLINICAL HISTORY: pain. Pelvic pain of the past few days. TECHNIQUE: Transvaginal (TV) and Transabdominal (TA) . Transabdominal sonographic images of the pel vis were acquired. Transvaginal sonographic images were medically necessary to better assess the fol lowing anatomy: Ovaries Date of LMP: Hysterectomy EXAM MEASUREMENTS: Uterus: Surgically absent cm Endometrial Stripe: Surgically absent cm Right Ovary: 3.3 x 1.7 x 2.3 cm Left Ovary: Not visualized cm 1. Uterus: Surgically absent 2. Endometrium: Surgically absent 3. Right Ovary: Anechoic area measuring 2.0 x 1.4 x 1.8 4. Left Ovary: Not visualized Spectral, color and waveform doppler imaging shows good arterial and venous flow within the ovaries ; there is no evidence for ovarian torsion. 5. Bilateral Adnexa: Obscured by overlying bowel gas 6. Posterior cul-de-sac: wnl Uterus surgically absent, left ovary not seen at this time, anchonic area seen within right ovary, li mited exam due to overlying bowel gas, and peristalsing bowel loop. IMPRESSION: There is a simple cyst on the right ovary. No solid pelvic mass. No evidence of ovarian t orsion. Left ovary not seen. No free fluid.
[2021-07-09 20:12] VITALS: BP 131/75; PULSE 72
== END 2021-07-09 20:25 | disposition home or self-care (01) ==
LOC: EC 13:25
DX: N83.202 Unspecified ovarian cyst, left side (principal); J45.909 Unspecified asthma, uncomplicated; Z88.1 Allergy status to other antibiotic agents; Z88.2 Allergy status to sulfonamides
CPT/HCPCS: 36415; 80053; 82150; 83690; 85025; 81001; 87491; 87591; 87086; 93976; 76856; 76830; 74176; 99284; 96374; 96361; 96375; J2270; J2405; J1885

== ENCOUNTER 2022-06-27 16:14 | Emergency (ER) | payer OTHER ==
[2022-06-27 16:35] VITALS: TEMP 98.5
--- NOTE | 2022-06-27 17:07 | ED ---
Abdominal Pain HPI - General Source: patient Mode of arrival: wheelchair Limitations: no limitations <Jackson Alcocer - Last Filed: 06/27/22 17:06> <Flaco Ortiz - Last Filed: 06/28/22 21:04> - General Chief Complaint: Abdominal Pain Stated Complaint: abd and lower back pain Time Seen by Provider: 06/27/22 17:06 - History of Present Illness Initial Comments: Patient is a 37-year-old female presenting with chief complaint of sharp left- sided abdominal pain that radiates to the flank. She admits to nausea and vomiting as well as diarrhea. Symptoms have been ongoing for 3 days. (Jackson Alcocer) Patient is a 37 year old female with past medical history remarkable for asthma, hysterectomy, polycystic ovarian cyst, gastric bypass surgery who presents emergency Department complaining of 3 days of nausea and vomiting with left flank pain with radiation towards the groin. Has bilious emesis. No diarrhea. No dysuria or hematuria that is notable. Presents for further evaluation. Denies chest pain or shortness of breath. Patient was originally evaluated in triage and started as a quick note. I evaluated the patient when she was placed in a room. (Flaco Ortiz) - Related Data Home Medications Medication Instructions Recorded Confirmed FLUoxetine HCL 80 mg PO HS 11/27/19 06/27/22 traZODone HCL 100 mg PO HS PRN 07/09/21 06/27/22 ALPRAZolam [Xanax] 1 mg PO DAILY PRN 06/27/22 06/27/22 Fexofenadine HCl [Fe Allergy] 180 mg PO DAILY 06/27/22 06/27/22 Fluticasone Nasal [place] [Flonase 1 spray EA NOSTRIL BID PRN 06/27/22 06/27/22 Nasal [place]] Montelukast [Singulair] 10 mg PO DAILY 06/27/22 06/27/22 Previous Rx's Medication Instructions Recorded Ondansetron Odt [Zofran Odt] 4 mg PO Q8HR PRN 3 Days #9 tab 06/27/22 Tamsulosin HCl [Flomax] 0.4 mg PO DAILY 7 Days #7 capsule 06/27/22 Allergies Allergy/AdvReac Type Severity Reaction Status Date / Time erythromycin base Allergy Severe Anaphylaxis Verified 07/09/21 14:23 amoxicillin [From Augmentin] Allergy Anaphylaxis Verified 07/09/21 14:23 clavulanic acid Allergy Anaphylaxis Verified 07/09/21 14:23 [From Augmentin] sulfamethoxazole Allergy Rash/Hives Verified 07/09/21 14:23 [From Bactrim] trimethoprim [From Bactrim] Allergy Rash/Hives Verified 07/09/21 14:23 Review of Systems ROS Other: All systems not noted in ROS Statement are negative. <Jackson Alcocer - Last Filed: 06/27/22 17:06> ROS Other: All systems not noted in ROS Statement are negative. <Flaco Ortiz - Last Filed: 06/28/22 21:04> ROS Statement: Those systems with pertinent positive or pertinent negative responses have been documented in the HPI. Review of Systems: CONST: Denies fever EYES: Denies blurry vision ENT: Denies nasal congestion C/V: Denies Chest pain RESP: Denies shortness of breath GI: Endorses abdominal pain : Denies dysuria SKIN: Denies rash. MSK: Denies joint pain. NEURO: Denies headache (Flaco Ortiz) Past Medical History Past Medical History: Asthma Additional Past Medical History / Comment(s): GALLBLADDER DISEASE polycystic ovarian cyst History of Any Multi-Drug Resistant Organisms: None Reported Past Surgical History: Bariatric Surgery, Section, Cholecystectomy, Hysterectomy, Uterine Ablation Additional Past Surgical History / Comment(s): D&C, partial hysterectomy (bilateral ovaries retained) August 2017, EGD sleeve gastrectomy 02-27-19 Past Anesthesia/Blood Transfusion Reactions: No Reported Reaction, Motion Sickness Additional Past Anesthesia/Blood Transfusion Reaction / Comment(s): . Past Psychological History: Anxiety Smoking Status: Never smoker Past Alcohol Use History: Rare Past Drug Use History: None Reported - Past Family History Mother Family Medical History: Hypertension Father Additional Family Medical History / Comment(s): at age 46 from unknown causes. <Jackson Alcocer - Last Filed: 06/27/22 17:06> General Exam Limitations: no limitations <Jackson Alcocer - Last Filed: 06/27/22 17:06> <Flaco Ortiz - Last Filed: 06/28/22 21:04> - General Exam Comments Initial Comments: General: Appears in mild distress secondary to abdominal discomfort. HEAD: Normal with no signs of head trauma. EYES: EOMI. ENT: Hearing grossly intact, normal oropharynx. RESPIRATORY: Clear breath sounds bilaterally. No wheezes, rales, or rhonchi. C/V: Regular rate and rhythm. S1 and S2 auscultated, no edema, peripheral pulses 2+ and intact throughout ABD: Suprapubic, left lower quadrant tenderness palpation. No CVA tenderness to percussion. Some left flank tenderness to palpation. Abdomen is otherwise soft and nondistended. No guarding. No peritoneal signs. No rebound tenderness. EXT: Normal range of motion, no obvious deformity SKIN: No rashes or lesions observed on exposed skin. NEURO: Alert and oriented 4. (Flaco Ortiz) Course Vital Signs 06/27/22 06/27/22 06/27/22 16:30 19:52 21:54 Temperature 98.5 F Pulse Rate 68 65 82 Respiratory 16 16 18 Rate Blood Pressure 150/106 135/75 146/86 O2 Sat by Pulse 98 98 99 Oximetry 06/27/22 22:37 Temperature Pulse Rate 88 Respiratory 18 Rate Blood Pressure 141/83 O2 Sat by Pulse 100 Oximetry Medical Decision Making - Lab Data Result diagrams: 06/27/22 17:48 06/27/22 17:48 <Flaco Ortiz - Last Filed: 06/28/22 21:04> - Medical Decision Making Was pt. sent in by a medical professional or institution ([facility], QUILTING MACHINE HELPER, urgent care, hospital, or shelter...) When possible be specific @ -No Did you speak to anyone other than the patient for history (EMS, parent, family, police, friend...)? What history was obtained from this source @ -No Did you review nursing and triage notes (agree or disagree)? Why? @ -I reviewed and agree with nursing and triage notes Were old charts reviewed (outside hosp., previous admission, EMS record, old EKG, old radiological studies, urgent care reports/EKG's, shelter records)? Report findings @ -No old charts were reviewed Differential Diagnosis (chest pain, altered mental status, abdominal pain women, abdominal pain men, vaginal bleeding, weakness, fever, dyspnea, syncope, heada willie, dizziness, GI bleed, back pain, seizure, CVA, palpatations, mental health, musculoskeletal)? @ -Differential Abdominal Pain Women: Appendicitis, Cholecystitis, diverticulosis, ischemic bowel, pancreatitis, hepatitis, UTI, gastroenteritis, AAA, incarcerated hernia, bowel obstruction, constipation, inflammatory bowel, hepatitis, peptic ulcer disease, splenic infarction, perforated viscus, vulvitis, ovarian torsion, PID, kidney stone, placenta abruption, this is not meant to be an all-inclusive list EKG interpreted by me (3pts min.). @ -None done X-rays interpreted by me (1pt min.). @ -None done CT interpreted by me (1pt min.). @ -CT abdomen and pelvis reveals chronic changes. Patient has an acute left mild hydronephrosis with obstructing 3 mm calculus. It is in the distal left ureter. This is new. Patient also has a dermoid cyst in left ovary. U/S interpreted by me (1pt. min.). @ -Renal and bladder ultrasound reveals no evidence of obstructive uropathy. Patient's pelvic ultrasound reveals no evidence of ovarian torsion, however difficult to visualize both ovaries. What testing was considered but not performed or refused? (CT, X-rays, U/S, labs)? Why? @ -None What meds were considered but not given or refused? Why? @ -None Did you discuss the management of the patient with other professionals (professionals i.e. , PA, QUILTING MACHINE HELPER, lab, RT, psych nurse, social service coordinator, razor sharpener, teacher, community services officer, pillowcase cutter)? Give summary @ -No Was smoking cessation discussed for >3mins.? @ -No Was critical care preformed (if so, how long)? @ -No Were there social determinants of health that impacted care today? How? (Homelessness, low income, unemployed, alcoholism, drug addiction, transportation, low edu. Level, literacy, decrease access to med. care, intermediate, rehab)? @ -No Was there de-escalation of care discussed even if they declined (Discuss DNR or withdrawal of care, Hospice)? DNR status @ -No What co-morbidities impacted this encounter? (DM, HTN, Smoking, COPD, CAD, Cancer, CVA, ARF, Chemo, Hep., AIDS, mental health diagnosis, sleep apnea, morbid obesity)? @ -None Was patient admitted / discharged? Hospital course, mention meds given and route, prescriptions, significant lab abnormalities, going to OR and other pertinent info. @ -Based on the patient's presentation and physical exam, there was concern for acute intra-abdominal process for current symptoms. She does have a history of ovarian cysts therefore ovary and torsion was high in the differential in addition to possible kidney stone or other acute intra-abdominal process. We will start with ultrasounds of the kidneys as well as ovaries. We will also obtain abdominal labs. She was in agreement this plan. Patient will be symptomatically treated with IV morphine, Zofran, IV fluids. Vital signs within acceptable limits. Patient's ultrasound imaging revealed no evidence of obstructive uropathy. Ultrasound of the ovaries was inconclusive as they were unable to visualize the ovaries. Patient's labs were concerning for a large amount of blood in the urine. She is not . Remainder of labs are within except for limits. On reevaluation I did recommend we obtain CT imaging of the abdomen and pelvis and she was in agreement this plan. This returned showing chronic findings in addition to an acute left-sided 3 mm ureter lithiasis with mild hydronephrosis. I discussed this finding with the patient. She discussed understanding. She'll be discharged home as there is no evidence of infected stone. Pain is controlled. She'll be given analgesia medications for home, Flomax, Zofran ODT. She was in agreement this plan. Strict return precautions were discussed. She was given follow-up for urology. I will provide the patient with a prescription for Flomax, Zofran. I instructed the patient to follow up with their PCP in the next 1-3 days. I provided contact information for follow up with urology. I explained that the patient should return to the emergency department if they experience any worsening symptoms. Strict return precautions were discussed with the patient. The patient expressed understanding of these instructions. I answered all questions that the patient had. The patient was discharged home in good condition with their prescriptions and follow up information. Undiagnosed new problem with uncertain prognosis? @ -No Drug Therapy requiring intensive monitoring for toxicity (Heparin, Nitro, Insulin, Cardizem)? @ -No Were any procedures done? @ -No Diagnosis/symptom? @ -Left-sided ureter lithiasis Acute, or Chronic, or Acute on Chronic? @ -Acute Uncomplicated (without systemic symptoms) or Complicated (systemic symptoms)? @ -Complicated, patient has pain, nausea, vomiting. This is controlled on discharge. Side effects of treatment? @ -No Exacerbation, Progression, or Severe Exacerbation? @ -No Poses a threat to life or bodily function? How? (Chest pain, [place], [place], pneumonia, PE, COPD, DKA, ARF, appy, cholecystitis, CVA, Diverticulitis, Homicidal, Suicidal, threat to staff... and all critical care pts) @ -No (Flaco Ortiz) - Lab Data Lab Results 06/27/22 06/27/22 06/27/22 Range/Units 17:45 17:48 17:48 WBC 9.1 (3.8-10.6) k/uL RBC 4.68 (3.80-5.40) m/uL Hgb 14.1 (11.4-16.0) gm/dL Hct 42.7 (34.0-46.0) % MCV 91.2 (80.0-100.0) fL MCH 30.1 (25.0-35.0) pg MCHC 33.0 (31.0-37.0) g/dL RDW 13.2 (11.5-15.5) % Plt Count 333 (150-450) k/uL MPV 7.6 Neutrophils % 60 % Lymphocytes % 31 % Monocytes % 4 % Eosinophils % 3 % Basophils % 0 % Neutrophils # 5.5 (1.3-7.7) k/uL Lymphocytes # 2.8 (1.0-4.8) k/uL Monocytes # 0.3 (0-1.0) k/uL Eosinophils # 0.3 (0-0.7) k/uL Basophils # 0.0 (0-0.2) k/uL Sodium 138 (137-145) mmol/L Potassium 4.0 (3.5-5.1) mmol/L Chloride 112 H (98-107) mmol/L Carbon Dioxide 22 (22-30) mmol/L Anion Gap 4 mmol/L BUN 13 (7-17) mg/dL Creatinine 0.74 (0.52-1.04) mg/dL Est GFR (CKD-EPI)AfAm >90 (>60 ml/min/1.73 sqM) Est GFR (CKD-EPI)NonAf >90 (>60 ml/min/1.73 sqM) Glucose 92 (74-99) mg/dL Calcium 8.9 (8.4-10.2) mg/dL Total Bilirubin 0.2 (0.2-1.3) mg/dL AST 18 (14-36) U/L ALT 16 (4-34) U/L Alkaline Phosphatase 82 (38-126) U/L Total Protein 5.8 L (6.3-8.2) g/dL Albumin 3.7 (3.5-5.0) g/dL Amylase 38 (30-110) U/L Lipase 62 (23-300) U/L HCG, Qual Urine Color Yellow Urine Appearance Cloudy H (Clear) Urine pH 7.0 (5.0-8.0) Ur Specific [place] 1.028 (1.001-1.035) Urine Protein 1+ H (Negative) Urine Glucose (UA) Negative (Negative) Urine Ketones Negative (Negative) Urine Blood Large H (Negative) Urine Nitrite Negative (Negative) Urine Bilirubin Negative (Negative) Urine Urobilinogen 3.0 (<2.0) mg/dL Ur Leukocyte Esterase Negative (Negative) Urine RBC >182 H (0-5) /hpf Urine WBC 1 (0-5) /hpf Ur Squamous Epith Cells <1 (0-4) /hpf Urine Bacteria Rare H (None) /hpf Urine Mucus Many H (None) /hpf 06/27/22 Range/Units 19:05 WBC (3.8-10.6) k/uL RBC (3.80-5.40) m/uL Hgb (11.4-16.0) gm/dL Hct (34.0-46.0) % MCV (80.0-100.0) fL MCH (25.0-35.0) pg MCHC (31.0-37.0) g/dL RDW (11.5-15.5) % Plt Count (150-450) k/uL MPV Neutrophils % % Lymphocytes % % Monocytes % % Eosinophils % % Basophils % % Neutrophils # (1.3-7.7) k/uL Lymphocytes # (1.0-4.8) k/uL Monocytes # (0-1.0) k/uL Eosinophils # (0-0.7) k/uL Basophils # (0-0.2) k/uL Sodium (137-145) mmol/L Potassium (3.5-5.1) mmol/L Chloride (98-107) mmol/L Carbon Dioxide (22-30) mmol/L Anion Gap mmol/L BUN (7-17) mg/dL Creatinine (0.52-1.04) mg/dL Est GFR (CKD-EPI)AfAm (>60 ml/min/1.73 sqM) Est GFR (CKD-EPI)NonAf (>60 ml/min/1.73 sqM) Glucose (74-99) mg/dL Calcium (8.4-10.2) mg/dL Total Bilirubin (0.2-1.3) mg/dL AST (14-36) U/L ALT (4-34) U/L Alkaline Phosphatase (38-126) U/L Total Protein (6.3-8.2) g/dL Albumin (3.5-5.0) g/dL Amylase (30-110) U/L Lipase (23-300) U/L HCG, Qual Not Detected Urine Color Urine Appearance (Clear) Urine pH (5.0-8.0) Ur Specific [place] (1.001-1.035) Urine Protein (Negative) Urine Glucose (UA) (Negative) Urine Ketones (Negative) Urine Blood (Negative) Urine Nitrite (Negative) Urine Bilirubin (Negative) Urine Urobilinogen (<2.0) mg/dL Ur Leukocyte Esterase (Negative) Urine RBC (0-5) /hpf Urine WBC (0-5) /hpf Ur Squamous Epith Cells (0-4) /hpf Urine Bacteria (None) /hpf Urine Mucus (None) /hpf Disposition <Jackson Alcocer - Last Filed: 06/27/22 17:06> Is patient prescribed a controlled substance at d/c from ED?: No Time of Disposition: 22:15 <Flaco Ortiz - Last Filed: 06/28/22 21:04> Clinical Impression: Ureterolithiasis Disposition: HOME SELF-CARE Condition: Good Instructions (If sedation given, give patient instructions): Ureteral Stones (ED) Prescriptions: Tamsulosin HCl [Flomax] 0.4 mg PO DAILY 7 Days #7 capsule Ondansetron Odt [Zofran Odt] 4 mg PO Q8HR PRN 3 Days #9 tab PRN Reason: Nausea Referrals: Virginia Valentine III, MD [Primary Care Provider] - 1-2 days Manuel Townsend MD [STAFF PHYSICIAN] - 1-2 days
--- NOTE | 2022-06-27 17:38 | XR ---
EXAMINATION TYPE: XR KUB DATE OF EXAM: 06/27/2022 5:30 PM INDICATION: Patient age:Female; 37 years old; Reason for study: abdominal pain; COMPARISON: CT 07/09/2021, radiograph 05/11/2015. TECHNIQUE: One radiographic view of the abdomen was obtained. FINDINGS: The bowel gas pattern is nonspecific without dilated loops of small or large bowel. There i s no evidence for organomegaly or pneumoperitoneum. The osseous structures are intact. No abnormal calcifications are present. Fecal material and gas are demonstrated throughout the colon and rectum. Left upper quadrant surgical clips IMPRESSION: Nonspecific bowel gas pattern without radiographic evidence for acute process.
[2022-06-27 17:58] LABS: Basophils % (A) 0 %; Eosinophils # (A) 0.3 k/uL (0-0.7); Eosinophils % (A) 3 %; HCT 42.7 % (34.0-46.0); HGB 14.1 gm/dL (11.4-16.0); Lymphocytes # (A) 2.8 k/uL (1.0-4.8); Lymphocytes % (A) 31 %; MCH 30.1 pg (25.0-35.0); MCV 91.2 fL (80.0-100.0); Mean Platelet Volume 7.6; Monocytes # (A) 0.3 k/uL (0-1.0); Monocytes % (A) 4 %; Neutrophils # (A) 5.5 k/uL (1.3-7.7); Neutrophils % (A) 60 %; Platelet Count 333 k/uL (150-450); RBC 4.68 m/uL (3.80-5.40); RDW 13.2 % (11.5-15.5); WBC 9.1 k/uL (3.8-10.6)
[2022-06-27 18:03] LABS: Appearance,Urine Cloudy (Clear); Bacteria,Urine Rare /hpf; Bilirubin,Urine Negative (Negative); Blood,Urine Large (Negative); Color,Urine Yellow; Glucose,Urine (UA) Negative (Negative); Ketones,Urine Negative (Negative); Leukocyte Esterase,Urine Negative (Negative); Mucus,Urine Many /hpf; Nitrite,Urine Negative (Negative); Protein,Urine 1+ (Negative); RBC,Urine >182 /hpf (0-5); Specific Gravity,Urine 1.028 (1.001-1.035); Squamous Epithelial Cell,Urine <1 /hpf (0-4); WBC,Urine 1 /hpf (0-5)
[2022-06-27 18:15] LABS: ALT 16 U/L (4-34); AST 18 U/L (14-36); African American GFR (CKD) >90 (>60 ml/min/1.73 sqM); Albumin 3.7 g/dL (3.5-5.0); Alkaline Phosphatase 82 U/L (38-126); Amylase 38 U/L (30-110); Anion Gap 4 mmol/L; Blood Urea Nitrogen 13 mg/dL (7-17); Calcium 8.9 mg/dL (8.4-10.2); Carbon Dioxide 22 mmol/L (22-30); Chloride 112 mmol/L (98-107); Glucose 92 mg/dL (74-99); Lipase 62 U/L (23-300); Non-African American GFR(CKD) >90 (>60 ml/min/1.73 sqM); Sodium 138 mmol/L (137-145); Total Bilirubin 0.2 mg/dL (0.2-1.3); Total Protein 5.8 g/dL (6.3-8.2)
[2022-06-27] MEDS ORDERED: MORPHINE SULFATE 4 MG/ML SYRINGE IVP STA ×3 (18:59→22:14)
[2022-06-27] MEDS ORDERED: ONDANSETRON 4 MG/2 ML VIAL IVP STA ×2 (18:59→20:47)
[2022-06-27] MEDS ORDERED: SODIUM CHLORIDE 0.9% 1,000 ML IV STA (18:59)
--- NOTE | 2022-06-27 20:51 | US ---
EXAMINATION TYPE: US pelvic limited with doppler DATE OF EXAM: 06/27/2022 COMPARISON: 07/09/21 CLINICAL HISTORY: eval for ovarian torsion. . Partial hysterectomy in 2015. Still has both ovarie s. TECHNIQUE: Transabdominal sonographic images of the pelvis were acquired. Transvaginal sonographic images were medically necessary to better assess the following anatomy: Ovaries Date of LMP: 2015 EXAM MEASUREMENTS: Uterus: Surgically absent Endometrial Stripe: Surgically absent Right Ovary: Obscured by bowel gas Left Ovary: Obscured by bowel gas 1. Uterus: Surgically absent 2. Endometrium: Surgically absent 3. Right Ovary: Obscured by overlying bowel gas 4. Left Ovary: Obscured by overlying bowel gas 5. Bilateral Adnexa: Bowel gas visualized 6. Posterior cul-de-sac: wnl IMPRESSION: No evidence of acute pelvic process. No organizing fluid collections 4 masses.
--- NOTE | 2022-06-27 20:52 | US ---
EXAMINATION TYPE: US renals and bladder DATE OF EXAM: 06/27/2022 COMPARISON: KUB today. CT: 07/09/21 CLINICAL HISTORY: eval for left sided kidney stones. Left sided pain EXAM MEASUREMENTS: Right Kidney: 10.5 x 5.5 x 5.4cm Left Kidney: 10.6 x 4.5 x 5.7cm Right Kidney: No hydronephrosis or masses seen Left Kidney: No hydronephrosis or masses seen Bladder: wnl Bilateral Jets seen: Yes There is no evidence for hydronephrosis at this point in time. No nephrolithiasis is seen. No zuleyma s are identified. The urinary bladder is anechoic. Bilateral ureteral jets are seen. IMPRESSION: No obstructive uropathy.
--- NOTE | 2022-06-27 21:44 | CT ---
EXAMINATION TYPE: CT abdomen pelvis w con CT DLP: 2179.1 mGycm, Automated exposure control for dose reduction was used. DATE OF EXAM: 06/27/2022 9:28 PM COMPARISON: CT abdomen pelvis most recent from 07/12/2021 CLINICAL INDICATION:Female, 37 years old with history of abd pain, RLQ/flank; Abd pain, RLQ pain. TECHNIQUE: Axial CT of the abdomen and pelvis. Sagittal and coronal reformats were created on a [employer] workstation. Contrast used:100cc mL of Isovue 300 with IV Contrast, Oral contrast used: without Oral Contrast FINDINGS: LOWER CHEST: Unremarkable ABDOMEN LIVER: Unremarkable GALLBLADDER AND BILE DUCTS: Gallbladder is surgically absent with mild intrahepatic and extra hepatic biliary dilatation likely physiologic and a postcholecystectomy change. No evidence of calcified cho ledocholithiasis. Dilation of the common hepatic duct up to 10 mm on today's exam and felt to be 8 mm on prior. PANCREAS: Unremarkable. SPLEEN: Unremarkable. ADRENAL GLANDS: Unremarkable. KIDNEYS AND URETERS: Nonobstructing 2 mm left renal calculus. No evidence of right renal calculus. No [place] nephrosis. There is a calcification measuring 3 mm near the distal left ureter which is new fr om prior CT 07/09/2021. PELVIS BLADDER: Unremarkable REPRODUCTIVE: Unchanged left ovarian 2.2 cm mixed attenuation probable dermoid tumor. ABDOMEN & PELVIS STOMACH AND BOWEL: No evidence of bowel obstruction. Postsurgical changes to the gastric lumen. A sma ll hiatal hernia. The appendix terminates in the middle of the pelvis is without evidence for acute p rocess. PERITONEUM/RETROPERITONEUM: No evidence of pneumoperitoneum or free fluid. VASCULATURE: No evidence of aortic aneurysm. MUSCULOSKELETAL: No acute osseous abnormalities LYMPH NODES: No gross evidence for lymphadenopathy. SOFT TISSUE/ABDOMINAL WALL: Unremarkable IMPRESSION: 1. Dilation of the extra hepatic biliary system which may be mildly increased from prior on 07/09/2021 . Consider MRI MRCP for further evaluation of the biliary system. 2. Mild left hydronephrosis from obstructing 3 mm calculus in the distal left ureter. Calculus is no t seen on prior imaging in 07/09/2021. Additional nonobstructing left renal calculus. No right renal ca lculi or hydronephrosis. 3. Postsurgical changes to the gastric lumen. 4. Left ovarian dermoid.
[2022-06-27 21:59] VITALS: RESP 18
[2022-06-27] MEDS ORDERED: ONDANSETRON 4 MG ODT STARTER PACK 2 TAB BTL PO STA (22:15)
[2022-06-27] MEDS ORDERED: ACET/COD 300 MG/30 MG STARTER PACK 6 TAB BTL PO STA (22:15)
[2022-06-27] MEDS ORDERED: TAMSULOSIN 0.4 MG CAP.ER.24H PO STA (22:15)
[2022-06-27 22:38] VITALS: BP 141/83; PULSE 88
== END 2022-06-27 22:57 | disposition home or self-care (01) ==
LOC: EC 16:14
DX: N13.2 Hydronephrosis with renal and ureteral calculous obstruction (principal); J45.909 Unspecified asthma, uncomplicated; F41.9 Anxiety disorder, unspecified; Z88.1 Allergy status to other antibiotic agents; Z88.0 Allergy status to penicillin; Z88.2 Allergy status to sulfonamides; Z88.8 Allergy status to other drugs, medicaments and biological substances; Z79.899 Other long term (current) drug therapy
CPT/HCPCS: 99285 ×2; 96374 ×2; 96375 ×2; 96376 ×4; 96361 ×2; 36415; 80053; 82150; 83690; 85025; 81001; 84703; 74018; 76856; 76830; 76770; 74177; J2270; J2405; S0119; Q9967

== ENCOUNTER 2023-06-04 11:49 | Day surgery (SDC) | payer OTHER ==
[~2023-06-04 11:49] MED LIST changes: -ACETAMINOPHEN TAB 500 MG TAB PO ONE; -DEXAMETHASONE SOD PHOSPHATE 10 MG/ML 1 ML VIAL IV ONE; -HEPARIN SODIUM,PORCINE 5,000 UNIT/ML 1 ML VIAL SQ ONE; -MIDAZOLAM 2 MG/2 ML VIAL IV PRN
[2023-06-04 12:28] VITALS: TEMP 97.1
[2023-06-04] MEDS ORDERED: LIDOCAINE 1% INJ 10MG/ML (20 ML MDV) ONE (13:49)
[2023-06-04] MEDS ORDERED: PROPOFOL 10 MG/ML 20 ML VIAL IV ONE (13:49)
--- NOTE | 2023-06-04 14:01 | P.GSHP ---
History of Present Illness H&P Date: 06/04/23 Chief Complaint: gerd morbid obesity 48-year-old female who has had complaints gerd. Patient is not obese. BMI is 49. She will stay for EGD. Past Medical History Past Medical History: Asthma, GERD/Reflux Additional Past Medical History / Comment(s): polycystic ovarian cyst, seasonal allergies. hx kidney stone , hiatal hernia per CT History of Any Multi-Drug Resistant Organisms: None Reported Past Surgical History: Bariatric Surgery, Section, Cholecystectomy, Hysterectomy, Uterine Ablation Additional Past Surgical History / Comment(s): D&C, partial hysterectomy (bilateral ovaries retained) August 2017, EGD,sleeve gastrectomy 02-27-19. kidney stone removal Past Anesthesia/Blood Transfusion Reactions: Motion Sickness, Postoperative Nausea & Vomiting (PONV) Additional Past Anesthesia/Blood Transfusion Reaction / Comment(s): no blood tranfusions Smoking Status: Never smoker - Past Family History Mother Family Medical History: Hypertension Father Additional Family Medical History / Comment(s): at age 46 from unknown causes. Medications and Allergies Home Medications Medication Instructions Recorded Confirmed Type traZODone HCL 100 mg PO HS PRN 07/09/21 06/04/23 History ALPRAZolam [Xanax] 1 mg PO DAILY PRN 06/27/22 06/04/23 History Fexofenadine HCl [Fe Allergy] 180 mg PO DAILY 06/27/22 06/04/23 History Fluticasone Nasal [place] [Flonase 1 spray EA NOSTRIL BID PRN 06/27/22 06/04/23 History Nasal [place]] Desvenlafaxine Succinate [Pristiq] 50 mg PO HS 05/30/23 06/04/23 History Allergies Allergy/AdvReac Type Severity Reaction Status Date / Time erythromycin base Allergy Severe Anaphylaxis Verified 06/04/23 12:19 amoxicillin [From Augmentin] Allergy Anaphylaxis Verified 06/04/23 12:19 clavulanic acid Allergy Anaphylaxis Verified 06/04/23 12:19 [From Augmentin] sulfamethoxazole Allergy Rash/Hives Verified 06/04/23 12:19 [From Bactrim] trimethoprim [From Bactrim] Allergy Rash/Hives Verified 06/04/23 12:19 Surgical - Exam Vital Signs Temp Pulse Resp BP Pulse Ox 97.1 F L 74 15 145/81 97 06/04/23 12:21 06/04/23 12:21 06/04/23 12:21 06/04/23 12:21 06/04/23 12:21 - General well developed, well nourished, no distress - Eyes PERRL - ENT normal pinna - Neck no masses - Respiratory normal expansion - Cardiovascular Rhythm: regular - Abdomen Abdomen: soft, non tender Assessment and Plan Assessment: Gerd, morbid obesity. Will perform EGD.
--- NOTE | 2023-06-04 14:07 | P.OP ---
Date of Procedure: 06/04/23 Preoperative Diagnosis: Gerd Morbid obesity Postoperative Diagnosis: Antral gastritis Procedure(s) Performed: egd Anesthesia: MAC Surgeon: Rob Russo Pathology: other (Antrum) Condition: stable Disposition: PACU Description of Procedure: The patient was placed on the endoscopy table in the lateral position. She received IV sedation. The gas was placed oropharynx passed in the esophagus of the stomach. Scope was placed through the pylorus. The first and second portion of the duodenum appeared normal. The scope was then brought back to the antrum this was mildly inflamed. A biopsy was performed. The scope was then retroflexed in the remainder of the stomach appeared normal. The GE junction was at 40 cm. The distal esophagus appeared normal. The proximal esophagus gerd open scope withdrawn for the patient.
[2023-06-04 14:20] VITALS: RESP 16
[2023-06-04 14:48] VITALS: BP 153/86; PULSE 71
== END 2023-06-04 15:00 | disposition home or self-care (01) ==
LOC: ORWHC2ENDO 11:49
PROVIDERS: ATTEND Surgery
DX: K29.50 Unspecified chronic gastritis without bleeding (principal); K31.9 Disease of stomach and duodenum, unspecified; K21.00 Gastro-esophageal reflux disease with esophagitis, without bleeding; K21.9 Gastro-esophageal reflux disease without esophagitis; E66.01 Morbid (severe) obesity due to excess calories; Z68.41 Body mass index [BMI] 40.0-44.9, adult; Z98.84 Bariatric surgery status; Z90.49 Acquired absence of other specified parts of digestive tract; Z79.899 Other long term (current) drug therapy; Z88.0 Allergy status to penicillin; Z88.2 Allergy status to sulfonamides; Z88.3 Allergy status to other anti-infective agents; Z91.09 Other allergy status, other than to drugs and biological substances
CPT/HCPCS: 88305; 43239; J2001; J2704

== ENCOUNTER 2023-08-17 05:29 | Emergency (ER) | payer OTHER ==
[2023-08-17 05:53] VITALS: RESP 16; TEMP 97.7
[2023-08-17 06:30] LABS: Basophils % (A) 0 %; Eosinophils # (A) 0.3 k/uL (0-0.7); Eosinophils % (A) 3 %; HCT 44.4 % (34.0-46.0); HGB 14.4 gm/dL (11.4-16.0); Lymphocytes # (A) 2.1 k/uL (1.0-4.8); Lymphocytes % (A) 24 %; MCH 29.1 pg (25.0-35.0); MCHC 32.4 g/dL (31.0-37.0); MCV 89.9 fL (80.0-100.0); Mean Platelet Volume 7.5; Monocytes # (A) 0.4 k/uL (0-1.0); Monocytes % (A) 5 %; Neutrophils # (A) 5.7 k/uL (1.3-7.7); Neutrophils % (A) 66 %; Platelet Count 261 k/uL (150-450); RBC 4.94 m/uL (3.80-5.40); RDW 13.5 % (11.5-15.5); WBC 8.6 k/uL (3.8-10.6)
--- NOTE | 2023-08-17 06:32 | ED ---
Abdominal Pain HPI - General Chief Complaint: Abdominal Pain Stated Complaint: Left abd pain Time Seen by Provider: 08/17/23 06:20 Source: patient, RN notes reviewed Mode of arrival: ambulatory Limitations: no limitations - History of Present Illness Initial Comments: 38-year-old female with history of nephrolithiasis presenting with left flank pain x 6 hours. States she is having a colicky, sharp pain in her left flank that radiates to her back. She also admits urinary frequency. States this feels similar to previous kidney stones. Endorses a 7 out of 10 pain currently. She admits nausea but is not vomiting. States her last kidney stone was 1 year ago where she had surgery for removal. Denies dysuria, fever, vomiting, hematuria. She has a history of a hysterectomy and cholecystectomy. Last medication use was ibuprofen yesterday at 4 PM. Denies history of gastric bleeds, blood thinners, CKD. MD Complaint: flank pain - Related Data Home Medications Medication Instructions Recorded Confirmed traZODone HCL 100 mg PO HS PRN 07/09/21 06/04/23 ALPRAZolam [Xanax] 1 mg PO DAILY PRN 06/27/22 06/04/23 Fexofenadine HCl [Fe Allergy] 180 mg PO DAILY 06/27/22 06/04/23 Fluticasone Nasal [place] [Flonase 1 spray EA NOSTRIL BID PRN 06/27/22 06/04/23 Nasal [place]] Desvenlafaxine Succinate [Pristiq] 50 mg PO HS 05/30/23 06/04/23 Allergies Allergy/AdvReac Type Severity Reaction Status Date / Time erythromycin base Allergy Severe Anaphylaxis Verified 08/17/23 05:30 amoxicillin [From Augmentin] Allergy Anaphylaxis Verified 08/17/23 05:30 clavulanic acid Allergy Anaphylaxis Verified 08/17/23 05:30 [From Augmentin] sulfamethoxazole Allergy Rash/Hives Verified 08/17/23 05:30 [From Bactrim] trimethoprim [From Bactrim] Allergy Rash/Hives Verified 08/17/23 05:30 Review of Systems ROS Statement: Those systems with pertinent positive or pertinent negative responses have been documented in the HPI. ROS Other: All systems not noted in ROS Statement are negative. Past Medical History Past Medical History: Asthma, GERD/Reflux Additional Past Medical History / Comment(s): polycystic ovarian cyst, seasonal allergies. hx kidney stone , hiatal hernia per CT History of Any Multi-Drug Resistant Organisms: C-DIFF Date of last positivie culture/infection: 2021 MDRO Source:: stool Past Surgical History: Bariatric Surgery, Section, Cholecystectomy, Hysterectomy, Uterine Ablation Additional Past Surgical History / Comment(s): D&C, partial hysterectomy (bilateral ovaries retained) August 2017, EGD,sleeve gastrectomy 02-27-19. kidney stone removal Past Anesthesia/Blood Transfusion Reactions: Motion Sickness, Postoperative Nausea & Vomiting (PONV) Additional Past Anesthesia/Blood Transfusion Reaction / Comment(s): no blood tranfusions Past Psychological History: Anxiety Smoking Status: Never smoker Past Alcohol Use History: None Reported Past Drug Use History: None Reported - Past Family History Mother Family Medical History: Hypertension Father Additional Family Medical History / Comment(s): at age 46 from unknown causes. General Exam Limitations: no limitations General appearance: alert, in no apparent distress Respiratory exam: Present: normal lung sounds bilaterally. Absent: respiratory distress, wheezes, rales, rhonchi, stridor Cardiovascular Exam: Present: regular rate, normal rhythm, normal heart sounds. Absent: systolic murmur, diastolic murmur, rubs, gallop, clicks GI/Abdominal exam: Present: soft (No CVA tenderness bilaterally, no skin changes), normal bowel sounds. Absent: distended, tenderness, guarding, rebound, rigid Back exam: Present: full ROM. Absent: tenderness, CVA tenderness (R), CVA tend erness (L), paraspinal tenderness Course Vital Signs 08/17/23 08/17/23 05:31 06:48 Temperature 97.7 F Pulse Rate 62 59 L Respiratory 16 16 Rate Blood Pressure 146/86 123/72 O2 Sat by Pulse 97 97 Oximetry Medical Decision Making - Medical Decision Making Was pt. sent in by a medical professional or institution (, PA, GRANT ADMINISTRATOR, urgent care, hospital, or penitentiary...) When possible be specific @ -No Did you speak to anyone other than the patient for history (EMS, parent, family, police, friend...)? What history was obtained from this source @ -No Did you review nursing and triage notes (agree or disagree)? Why? @ -I reviewed and agree with nursing and triage notes Were old charts reviewed (outside hosp., previous admission, EMS record, old EKG, old radiological studies, urgent care reports/EKG's, penitentiary records)? Report findings @ -Previous CT scan of abdomen reviewed and revealed left-sided 2 millimeter renal calculus. Differential Diagnosis (chest pain, altered mental status, abdominal pain women, abdominal pain men, vaginal bleeding, weakness, fever, dyspnea, syncope, headache, dizziness, GI bleed, back pain, seizure, CVA, palpatations, mental health, musculoskeletal)? @Differential Abdominal Pain Women: Nephrolithiasis, pyelonephritis, appendicitis, Cholecystitis, diverticulosis, ischemic bowel, pancreatitis, hepatitis, UTI, gastroenteritis, AAA, incarcerated hernia, bowel obstruction, constipation, inflammatory bowel, hepatitis, peptic ulcer disease, splenic infarction, perforated viscus, vulvitis, ovarian torsion, PID, placenta abruption, this is not meant to be an all-inclusive list EKG interpreted by me (3pts min.). @ -None X-rays interpreted by me (1pt min.). @ -Abdominal x-ray reveals no acute process, no nephrolithiasis CT interpreted by me (1pt min.). @ -None done U/S interpreted by me (1pt. min.). @ -None done What testing was considered but not performed or refused? (CT, X-rays, U/S, labs)? Why? @ -CT not performed today due to recent CT 1 year ago showing a left-sided renal calculus What meds were considered but not given or refused? Why? @ -None Did you discuss the management of the patient with other professionals (professionals i.e. , PA, GRANT ADMINISTRATOR, lab, RT, psych nurse, social media content manager, label printer, teacher, forest fire officer, rehabilitation caseworker)? Give summary @ -No Was smoking cessation discussed for >3mins.? @ -No Was critical care preformed (if so, how long)? @ -No Were there social determinants of health that impacted care today? How? (Homelessness, low income, unemployed, alcoholism, drug addiction, transportation, low edu. Level, literacy, decrease access to med. care, longterm, rehab)? @ -No Was there de-escalation of care discussed even if they declined (Discuss DNR or withdrawal of care, Hospice)? DNR status @ -No What co-morbidities impacted this encounter? (DM, HTN, Smoking, COPD, CAD, Cancer, CVA, ARF, Chemo, Hep., AIDS, mental health diagnosis, sleep apnea, morbid obesity)? @ -None Was patient admitted / discharged? Hospital course, mention meds given and route, prescriptions, significant lab abnormalities, going to OR and other pertinent info. @ -Patient was discharged. Patient presented with left-sided flank pain with history of known left-sided renal calculus. X-ray, lab work, and urinalysis was negative. Patient's pain was well-controlled with Toradol and Zofran. Patient discharged in stable condition. Undiagnosed new problem with uncertain prognosis? @ -No Drug Therapy requiring intensive monitoring for toxicity (Heparin, Nitro, Insulin, Cardizem)? @ -No Were any procedures done? @ -No Diagnosis/symptom? @ -Acute nephrolithiasis Acute, or Chronic, or Acute on Chronic? @ -Acute Uncomplicated (without systemic symptoms) or Complicated (systemic symptoms)? @ -Default Side effects of treatment? @ -No Exacerbation, Progression, or Severe Exacerbation? @ -No Poses a threat to life or bodily function? How? (Chest pain, [place], [place], pneumonia, PE, COPD, DKA, ARF, appy, cholecystitis, CVA, Diverticulitis, Homicidal, Suicidal, threat to staff... and all critical care pts) @ -No - Lab Data Result diagrams: 08/17/23 06:23 08/17/23 06:23 Lab Results 08/17/23 08/17/23 08/17/23 Range/Units 06:23 06:23 06:23 WBC 8.6 (3.8-10.6) k/uL RBC 4.94 (3.80-5.40) m/uL Hgb 14.4 (11.4-16.0) gm/dL Hct 44.4 (34.0-46.0) % MCV 89.9 (80.0-100.0) fL MCH 29.1 (25.0-35.0) pg MCHC 32.4 (31.0-37.0) g/dL RDW 13.5 (11.5-15.5) % Plt Count 261 (150-450) k/uL MPV 7.5 Neutrophils % 66 % Lymphocytes % 24 % Monocytes % 5 % Eosinophils % 3 % Basophils % 0 % Neutrophils # 5.7 (1.3-7.7) k/uL Lymphocytes # 2.1 (1.0-4.8) k/uL Monocytes # 0.4 (0-1.0) k/uL Eosinophils # 0.3 (0-0.7) k/uL Basophils # 0.0 (0-0.2) k/uL Sodium 137 (137-145) mmol/L Potassium 3.6 (3.5-5.1) mmol/L Chloride 106 (98-107) mmol/L Carbon Dioxide 27 (22-30) mmol/L Anion Gap 4 mmol/L BUN 13 (7-17) mg/dL Creatinine 0.86 (0.52-1.04) mg/dL Est GFR (CKD-EPI)AfAm >90 (>60 ml/min/1.73 sqM) Est GFR (CKD-EPI)NonAf 87 (>60 ml/min/1.73 sqM) Glucose 93 (74-99) mg/dL Calcium 9.2 (8.4-10.2) mg/dL Urine Color Colorless Urine Appearance Cloudy H (Clear) Urine pH 5.5 (5.0-8.0) Ur Specific [place] 1.011 (1.001-1.035) Urine Protein Negative (Negative) Urine Glucose (UA) Negative (Negative) Urine Ketones Negative (Negative) Urine Blood Negative (Negative) Urine Nitrite Negative (Negative) Urine Bilirubin Negative (Negative) Urine Urobilinogen <2.0 (<2.0) mg/dL Ur Leukocyte Esterase Negative (Negative) Urine RBC <1 (0-5) /hpf Urine WBC 2 (0-5) /hpf Ur Squamous Epith Cells 25 H (0-4) /hpf Urine Bacteria Occasional H (None) /hpf Urine Mucus Rare H (None) /hpf Disposition Clinical Impression: Calculus of kidney Disposition: HOME SELF-CARE Condition: Stable Additional Instructions: Please return to the Emergency Department if symptoms worsen or any other concerns. Is patient prescribed a controlled substance at d/c from ED?: No Referrals: Shaquille Larios MD [Primary Care Provider] - 1-2 days
[2023-08-17 06:42] LABS: African American GFR (CKD) >90 (>60 ml/min/1.73 sqM); Anion Gap 4 mmol/L; Appearance,Urine Cloudy (Clear); Bacteria,Urine Occasional /hpf; Bilirubin,Urine Negative (Negative); Blood Urea Nitrogen 13 mg/dL (7-17); Blood,Urine Negative (Negative); Calcium 9.2 mg/dL (8.4-10.2); Carbon Dioxide 27 mmol/L (22-30); Chloride 106 mmol/L (98-107); Color,Urine Colorless; Glucose 93 mg/dL (74-99); Glucose,Urine (UA) Negative (Negative); Ketones,Urine Negative (Negative); Leukocyte Esterase,Urine Negative (Negative); Mucus,Urine Rare /hpf; Nitrite,Urine Negative (Negative); Non-African American GFR(CKD) 87 (>60 ml/min/1.73 sqM); PH, Urine 5.5 (5.0-8.0); Potassium 3.6 mmol/L (3.5-5.1); Protein,Urine Negative (Negative); RBC,Urine <1 /hpf (0-5); Sodium 137 mmol/L (137-145); Specific Gravity,Urine 1.011 (1.001-1.035); Squamous Epithelial Cell,Urine 25 /hpf (0-4); Urobilinogen,Urine <2.0 mg/dL (<2.0); WBC,Urine 2 /hpf (0-5)
[2023-08-17] MEDS: KETOROLAC 15 MG/ML 1 ML VIAL IVP STA ×2 (06:43→08:09)
[2023-08-17] MEDS: ONDANSETRON 4 MG/2 ML VIAL IVP STA (06:43)
[2023-08-17] MEDS: SODIUM CHLORIDE 0.9% 2,000 ML IV STA (06:44)
--- NOTE | 2023-08-17 06:47 | XR ---
EXAMINATION TYPE: XR KUB DATE OF EXAM: 08/17/2023 6:41 AM CLINICAL HISTORY: Abdominal pain. Left flank pain into back with urinary frequency. History of kidne y stones. TECHNIQUE: Two KUB images of the abdomen are obtained. COMPARISON: Most recent abdominal x-ray July 05, [address] June 27, 2022. FINDINGS: No definite nephrolithiasis. Overall nonobstructive bowel gas pattern. Surgical changes sup erior epigastric region redemonstrated. The lung bases remain clear. The osseous structures are intac t. IMPRESSION: No definite nephrolithiasis. Small 2 mm left renal calculus on CT less well-seen on plain films.
[2023-08-17 07:17] VITALS: PULSE 59
[2023-08-17 08:42] VITALS: BP 110/63
== END 2023-08-17 08:17 | disposition home or self-care (01) ==
LOC: EC 05:29
DX: N20.0 Calculus of kidney (principal); Z88.1 Allergy status to other antibiotic agents; Z88.0 Allergy status to penicillin; Z88.2 Allergy status to sulfonamides; Z88.8 Allergy status to other drugs, medicaments and biological substances
CPT/HCPCS: 36415; 80048; 85025; 81001; 74018; 99285; 96374; 96375; 96376; 96361; J2405; J1885

== ENCOUNTER 2023-08-18 18:40 | Emergency (ER) | payer OTHER ==
[2023-08-18 18:52] VITALS: TEMP 98.1
--- NOTE | 2023-08-18 19:40 | ED ---
Female Urogenital HPI - General Chief complaint: Urogenital Stated complaint: NV kidney stone pain Time Seen by Provider: 08/18/23 19:00 Source: patient, RN notes reviewed Mode of arrival: ambulatory Limitations: no limitations - History of Present Illness Initial comments: This is a 38-year-old female with a history of nephrolithiasis who presents the emergency department chief complaint of left-sided flank and left lower quadrant pain. States that she came to the emergency department yesterday, 08/16, where she was diagnosed with a kidney stone and discharged. Patient states that this time her pain has worsened in addition to having feelings of nausea and hot and cold sweats but has not checked her temperature at home. Patient endorses feelings of increase frequency and urgency. She denies dysuria, hematuria, constipation, diarrhea. States she has taken tylenol today with minimal relief of symptoms and rates her pain as a 7/10. - Related Data Home Medications Medication Instructions Recorded Confirmed traZODone HCL 100 mg PO HS PRN 07/09/21 06/04/23 ALPRAZolam [Xanax] 1 mg PO DAILY PRN 06/27/22 06/04/23 Fexofenadine HCl [Fe Allergy] 180 mg PO DAILY 06/27/22 06/04/23 Fluticasone Nasal [place] [Flonase 1 spray EA NOSTRIL BID PRN 06/27/22 06/04/23 Nasal Zenia] Desvenlafaxine Succinate [Pristiq] 50 mg PO HS 05/30/23 06/04/23 Previous Rx's Medication Instructions Recorded Acetaminophen [Acetaminophen 8 hr] 650 mg PO Q8H #15 tab 08/18/23 Ibuprofen [Motrin] 800 mg PO Q8H #15 tab 08/18/23 Ondansetron Odt [Zofran Odt] 4 mg PO Q8HR PRN #10 tab 08/18/23 Allergies Allergy/AdvReac Type Severity Reaction Status Date / Time erythromycin base Allergy Severe Anaphylaxis Verified 08/18/23 18:52 amoxicillin [From Augmentin] Allergy Anaphylaxis Verified 08/18/23 18:52 clavulanic acid Allergy Anaphylaxis Verified 08/18/23 18:52 [From Augmentin] sulfamethoxazole Allergy Rash/Hives Verified 08/18/23 18:52 [From Bactrim] trimethoprim [From Bactrim] Allergy Rash/Hives Verified 08/18/23 18:52 Review of Systems ROS Statement: Those systems with pertinent positive or pertinent negative responses have been documented in the HPI. ROS Other: All systems not noted in ROS Statement are negative. Past Medical History Past Medical History: Asthma, GERD/Reflux Additional Past Medical History / Comment(s): polycystic ovarian cyst, seasonal allergies. hx kidney stone , hiatal hernia per CT History of Any Multi-Drug Resistant Organisms: C-DIFF Date of last positivie culture/infection: 2021 MDRO Source:: stool Past Surgical History: Bariatric Surgery, Section, Cholecystectomy, Hysterectomy, Uterine Ablation Additional Past Surgical History / Comment(s): D&C, partial hysterectomy (bilateral ovaries retained) August 2017, EGD,sleeve gastrectomy 02-27-19. kidney stone removal Past Anesthesia/Blood Transfusion Reactions: Motion Sickness, Postoperative Nausea & Vomiting (PONV) Additional Past Anesthesia/Blood Transfusion Reaction / Comment(s): no blood tranfusions Past Psychological History: Anxiety Smoking Status: Never smoker Past Alcohol Use History: None Reported Past Drug Use History: None Reported - Past Family History Mother Family Medical History: Hypertension Father Additional Family Medical History / Comment(s): at age 46 from unknown causes. General Exam Limitations: no limitations General appearance: alert, in no apparent distress Head exam: Present: atraumatic, normocephalic, normal inspection Eye exam: Present: normal appearance, PERRL, EOMI. Absent: scleral icterus, conjunctival injection, periorbital swelling ENT exam: Present: normal exam, mucous membranes moist Neck exam: Present: normal inspection. Absent: tenderness, meningismus, lymphadenopathy Respiratory exam: Present: normal lung sounds bilaterally. Absent: respiratory distress, wheezes, rales, rhonchi, stridor Cardiovascular Exam: Present: regular rate, normal rhythm, normal heart sounds. Absent: systolic murmur, diastolic murmur, rubs, gallop, clicks GI/Abdominal exam: Present: soft, normal bowel sounds. Absent: distended, tenderness, guarding, rebound, rigid Back exam: Present: CVA tenderness (L) Course Vital Signs 08/18/23 08/18/23 18:47 22:13 Temperature 98.1 F Pulse Rate 71 55 L Respiratory 18 16 Rate Blood Pressure 129/78 131/83 O2 Sat by Pulse 100 99 Oximetry Medical Decision Making - Medical Decision Making Was pt. sent in by a medical professional or institution (TOM Ocasio, LOADER OPERATOR/GROUND LEADER, urgent care, hospital, or retirement...) When possible be specific @ -No Did you speak to anyone other than the patient for history (EMS, parent, family, police, friend...)? What history was obtained from this source @ -No Did you review nursing and triage notes (agree or disagree)? Why? @ -I reviewed and agree with nursing and triage notes Were old charts reviewed (outside hosp., previous admission, EMS record, old EKG, old radiological studies, urgent care reports/EKG's, retirement records)? Report findings @ -No old charts were reviewed Differential Diagnosis (chest pain, altered mental status, abdominal pain women, abdominal pain men, vaginal bleeding, weakness, fever, dyspnea, syncope, headache, dizziness, GI bleed, back pain, seizure, CVA, palpatations, mental health, musculoskeletal)? @Differential Abdominal Pain Women: Appendicitis, Cholecystitis, diverticulosis, ischemic bowel, pancreatitis, hepatitis, UTI, gastroenteritis, AAA, incarcerated hernia, bowel obstruction, constipation, inflammatory bowel, hepatitis, peptic ulcer disease, splenic infarction, perforated viscus, vulvitis, ovarian torsion, PID, kidney stone, placenta abruption, this is not meant to be an all-inclusive list EKG interpreted by me (3pts min.). @ -None X-rays interpreted by me (1pt min.). @ -None done CT interpreted by me (1pt min.). @ -CT abdomen pelvis without contrast reveals a nonobstructing 4 mm calculus of the left kidney and a left ovarian suspected dermoid measuring 23 mm U/S interpreted by me (1pt. min.). @ -None done What testing was considered but not performed or refused? (CT, X-rays, U/S, labs)? Why? @ -None What meds were considered but not given or refused? Why? @ -None Did you discuss the management of the patient with other professionals ( professionals i.e. TOM Ocasio, LOADER OPERATOR/GROUND LEADER, lab, RT, psych nurse, healthcare social worker, crop adjuster, teacher, correction officer city or county jail, rifle case repairer)? Give summary @ -No Was smoking cessation discussed for >3mins.? @ -No Was critical care preformed (if so, how long)? @ -No Were there social determinants of health that impacted care today? How? (Homelessness, low income, unemployed, alcoholism, drug addiction, transportation, low edu. Level, literacy, decrease access to med. care, senior care, rehab)? @ -No Was there de-escalation of care discussed even if they declined (Discuss DNR or withdrawal of care, Hospice)? DNR status @ -No What co-morbidities impacted this encounter? (DM, HTN, Smoking, COPD, CAD, Cancer, CVA, ARF, Chemo, Hep., AIDS, mental health diagnosis, sleep apnea, morbid obesity)? @ -None Was patient admitted / discharged? Hospital course, mention meds given and route, prescriptions, significant lab abnormalities, going to OR and other pertinent info. @ -38-year-old female with left flank pain and increasing urinary frequency urgency. On physical examination patient noted to have left-sided flank and left lower quadrant abdominal pain on palpation. CT results reveal a 4 mm stone within the left kidney. Recommend medical unremarkable for signs of acute infection. No electrolyte abnormalities. Urinalysis Is a cloudy appearance with trace protein, no signs of infection or blood cells. Patient states that her pain has subsided. Toradol in addition to nausea has become more controlled after Zofran. Instructed patient to follow-up outpatient with her urologist, Dr. Egan, which patient has established care within the past. Patient is in agreement with this. Patient will be given outpatient prescription for Zofran, Tylenol, Motrin for relief during this time. Discussed with Dr. Valentine Undiagnosed new problem with uncertain prognosis? @ -No Drug Therapy requiring intensive monitoring for toxicity (Heparin, Nitro, Insulin, Cardizem)? @ -No Were any procedures done? @ -No Diagnosis/symptom? @ -renal colic Acute, or Chronic, or Acute on Chronic? @ -acute Uncomplicated (without systemic symptoms) or Complicated (systemic symptoms)? @ -uncomplicated Side effects of treatment? @ -No Exacerbation, Progression, or Severe Exacerbation? @ -No Poses a threat to life or bodily function? How? (Chest pain, [place], [place], pneumonia, PE, COPD, DKA, ARF, appy, cholecystitis, CVA, Diverticulitis, Homicidal, Suicidal, threat to staff... and all critical care pts) @ -No - Lab Data Result diagrams: 08/18/23 21:50 08/18/23 19:21 Lab Results 08/18/23 08/18/23 08/18/23 Range/Units 19:21 21:50 22:47 WBC 9.1 (3.8-10.6) k/uL RBC 4.69 (3.80-5.40) m/uL Hgb 13.7 (11.4-16.0) gm/dL Hct 43.8 (34.0-46.0) % MCV 93.3 (80.0-100.0) fL MCH 29.2 (25.0-35.0) pg MCHC 31.3 (31.0-37.0) g/dL RDW 13.4 (11.5-15.5) % Plt Count 236 (150-450) k/uL MPV 7.4 Neutrophils % 64 % Lymphocytes % 27 % Monocytes % 4 % Eosinophils % 3 % Basophils % 0 % Neutrophils # 5.8 (1.3-7.7) k/uL Lymphocytes # 2.5 (1.0-4.8) k/uL Monocytes # 0.4 (0-1.0) k/uL Eosinophils # 0.3 (0-0.7) k/uL Basophils # 0.0 (0-0.2) k/uL Sodium 139 (137-145) mmol/L Potassium 4.2 (3.5-5.1) mmol/L Chloride 111 H (98-107) mmol/L Carbon Dioxide 22 (22-30) mmol/L Anion Gap 6 mmol/L BUN 14 (7-17) mg/dL Creatinine 0.84 (0.52-1.04) mg/dL Est GFR (CKD-EPI)AfAm >90 (>60 ml/min/1.73 sqM) Est GFR (CKD-EPI)NonAf 89 (>60 ml/min/1.73 sqM) Glucose 79 (74-99) mg/dL Calcium 8.9 (8.4-10.2) mg/dL Total Bilirubin 0.5 (0.2-1.3) mg/dL AST 27 (14-36) U/L ALT 11 (4-34) U/L Alkaline Phosphatase 80 (38-126) U/L Total Protein 5.7 L (6.3-8.2) g/dL Albumin 3.4 L (3.5-5.0) g/dL Urine Color Yellow Urine Appearance Cloudy H (Clear) Urine pH 6.0 (5.0-8.0) Ur Specific [place] 1.029 (1.001-1.035) Urine Protein Trace H (Negative) Urine Glucose (UA) Negative (Negative) Urine Ketones Negative (Negative) Urine Blood Negative (Negative) Urine Nitrite Negative (Negative) Urine Bilirubin Negative (Negative) Urine Urobilinogen 4.0 (<2.0) mg/dL Ur Leukocyte Esterase Small H (Negative) Urine RBC 4 (0-5) /hpf Urine WBC 11 H (0-5) /hpf Ur Squamous Epith Cells 10 H (0-4) /hpf Urine Bacteria Rare H (None) /hpf Urine Mucus Many H (None) /hpf Disposition Clinical Impression: Nephrolithiasis Narrative: Please return to the Emergency Department if symptoms worsen or any other concerns. Follow-up with your urologist, Dr. Mckinney, that you have seen in the past within the next week for further evaluation of 4 mm kidney stone within the left kidney. Disposition: HOME SELF-CARE Condition: Good Prescriptions: Acetaminophen [Acetaminophen 8 hr] 650 mg PO Q8H #15 tab Ibuprofen [Motrin] 800 mg PO Q8H #15 tab Ondansetron Odt [Zofran Odt] 4 mg PO Q8HR PRN #10 tab PRN Reason: Nausea Is patient prescribed a controlled substance at d/c from ED?: No Referrals: Shaquille Larios MD [Primary Care Provider] - 1-2 days
--- NOTE | 2023-08-18 19:51 | CT ---
EXAMINATION TYPE: CT abdomen pelvis wo con CT DLP: 1504.5 mGycm, Automated exposure control for dose reduction was used. DATE OF EXAM: 08/18/2023 7:33 PM COMPARISON: CT abdomen pelvis most recent from 06/27/2022 CLINICAL INDICATION:Female, 38 years old with history of left side flank pain; left flank pain TECHNIQUE: Axial CT abdomen pelvis wo con;Sagittal and coronal reformats were created on a separate workstation. Contrast used: mL of , (none if empty) Oral contrast used: without Oral Contrast (none if empty) FINDINGS: LOWER CHEST: Unremarkable ABDOMEN LIVER: Unremarkable GALLBLADDER AND BILE DUCTS: Gallbladder surgically absent. PANCREAS: Unremarkable. SPLEEN: Unremarkable. ADRENAL GLANDS: Unremarkable. KIDNEYS AND URETERS: Nonobstructing left 4 mm calculus. No right renal calculi. Previous calculus fabricio r the left ureteral fascicular junction is no longer visualized. PELVIS BLADDER: Unremarkable REPRODUCTIVE: Redemonstration of bilateral ovarian lesions on the left measuring up to 23 mm and on t he right ABDOMEN & PELVIS STOMACH AND BOWEL: No evidence of bowel obstruction. Postsurgical changes of the gastric lumen. Small hiatal hernia. PERITONEUM/RETROPERITONEUM: No evidence of pneumoperitoneum or free fluid. VASCULATURE: No evidence of aortic aneurysm. MUSCULOSKELETAL: No acute osseous abnormalities LYMPH NODES: No gross evidence for lymphadenopathy. SOFT TISSUE/ABDOMINAL WALL: Unremarkable IMPRESSION: 1. No evidence for obstructive uropathy. Left nonobstructing 4 mm calculus. No acute left-sided proc ess to explain the patient's flank pain. 2. Postsurgical changes of stomach with small hiatal hernia. 3. Left ovarian suspected dermoid measuring up to 23 mm.
[2023-08-18] MEDS: ONDANSETRON 4 MG/2 ML VIAL IVP STA (21:19)
[2023-08-18] MEDS: KETOROLAC 15 MG/ML 1 ML VIAL IVP STA (21:19)
[2023-08-18 22:03] LABS: Basophils % (A) 0 %; Eosinophils # (A) 0.3 k/uL (0-0.7); Eosinophils % (A) 3 %; HCT 43.8 % (34.0-46.0); HGB 13.7 gm/dL (11.4-16.0); Lymphocytes # (A) 2.5 k/uL (1.0-4.8); Lymphocytes % (A) 27 %; MCH 29.2 pg (25.0-35.0); MCHC 31.3 g/dL (31.0-37.0); MCV 93.3 fL (80.0-100.0); Mean Platelet Volume 7.4; Monocytes # (A) 0.4 k/uL (0-1.0); Monocytes % (A) 4 %; Neutrophils # (A) 5.8 k/uL (1.3-7.7); Neutrophils % (A) 64 %; Platelet Count 236 k/uL (150-450); RBC 4.69 m/uL (3.80-5.40); RDW 13.4 % (11.5-15.5); WBC 9.1 k/uL (3.8-10.6)
[2023-08-18] MEDS: ACETAMINOPHEN TAB 500 MG TAB PO STA (22:07)
[2023-08-18] MEDS: ONDANSETRON ODT 4 MG TAB PO STA (22:08)
[2023-08-18] MEDS: KETOROLAC 15 MG/ML 1 ML VIAL IM STA (22:08)
[2023-08-18 22:11] LABS: ALT 11 U/L (4-34); African American GFR (CKD) >90 (>60 ml/min/1.73 sqM); Anion Gap 6 mmol/L; Blood Urea Nitrogen 14 mg/dL (7-17); Calcium 8.9 mg/dL (8.4-10.2); Carbon Dioxide 22 mmol/L (22-30); Chloride 111 mmol/L (98-107); Glucose 79 mg/dL (74-99); Non-African American GFR(CKD) 89 (>60 ml/min/1.73 sqM); Sodium 139 mmol/L (137-145); Total Bilirubin 0.5 mg/dL (0.2-1.3)
[2023-08-18 22:23] LABS: Albumin 3.4 g/dL (3.5-5.0); Potassium 4.2 mmol/L (3.5-5.1); Total Protein 5.7 g/dL (6.3-8.2)
[2023-08-18 22:24] LABS: AST 27 U/L (14-36); Alkaline Phosphatase 80 U/L (38-126)
[2023-08-18 22:43] VITALS: BP 131/83; PULSE 55; RESP 16
[2023-08-18 22:56] LABS: Appearance,Urine Cloudy (Clear); Bacteria,Urine Rare /hpf; Bilirubin,Urine Negative (Negative); Blood,Urine Negative (Negative); Color,Urine Yellow; Glucose,Urine (UA) Negative (Negative); Ketones,Urine Negative (Negative); Leukocyte Esterase,Urine Small (Negative); Mucus,Urine Many /hpf; Nitrite,Urine Negative (Negative); Protein,Urine Trace (Negative); RBC,Urine 4 /hpf (0-5); Specific Gravity,Urine 1.029 (1.001-1.035); Squamous Epithelial Cell,Urine 10 /hpf (0-4); WBC,Urine 11 /hpf (0-5)
== END 2023-08-18 22:13 | disposition home or self-care (01) ==
LOC: EC 18:40
DX: N20.0 Calculus of kidney (principal); K44.9 Diaphragmatic hernia without obstruction or gangrene; Z88.2 Allergy status to sulfonamides; Z88.0 Allergy status to penicillin; Z88.1 Allergy status to other antibiotic agents; Z88.6 Allergy status to analgesic agent; Z88.8 Allergy status to other drugs, medicaments and biological substances
CPT/HCPCS: 36415; 80053; 85025; 81001; 74176; 99284; 96372; J1885

== ENCOUNTER → 2023-09-26 | Outpatient (CLI) | payer OTHER ==
[2023-09-26 14:31] LABS: Basophils # (A) 0.02 X 10*3/uL (0.00-0.10); Basophils % (A) 0.3 %; Eosinophils # (A) 0.23 X 10*3/uL (0.04-0.35); HCT 42.3 % (37.2-46.3); HGB 14.1 g/dL (12.0-15.0); Lymphocytes # (A) 1.92 X 10*3/uL (0.90-5.00); Lymphocytes % (A) 24.8 %; MCH 29.6 pg (27.0-32.0); MCHC 33.3 g/dL (32.0-37.0); MCV 88.9 FL (80.0-97.0); Mean Platelet Volume 10.3 FL (9.5-12.2); Monocytes # (A) 0.53 X 10*3/uL (0.20-1.00); Monocytes % (A) 6.8 %; NRBC Per 100 WBC 0 X 10*3/uL (0.00-0.01); Neutrophils # (A) 5.03 X 10*3/uL (1.80-7.70); Neutrophils % (A) 64.8 %; Platelet Count 266 X 10*3/uL (140-440); RBC 4.76 X 10*6/uL (4.10-5.20); RDW 13.4 % (11.5-14.5); WBC 7.75 X 10*3/uL (4.50-10.00)
[2023-09-26 15:08] LABS: BUN/Creat Ratio 9.44 Ratio (12.00-20.00); Blood Urea Nitrogen 8.5 mg/dL (9.0-27.0); Calcium 9.1 mg/dL (8.7-10.3); Carbon Dioxide 25.8 mmol/L (21.6-31.8); Chloride 107 mmol/L (96-109); Glucose 93 mg/dL (70-110); Potassium 3.9 mmol/L (3.5-5.5); Sodium 142 mmol/L (135-145)
[2023-09-26 15:30] LABS: Appearance,Urine Clear (Clear); Bilirubin,Urine Negative (Negative); Blood,Urine Negative (Negative); Color,Urine Yellow (Yellow); Ketones,Urine Negative (Negative); Nitrite,Urine Negative (Negative); Specific Gravity,Urine 1.007 (1.001-1.030); Urobilinogen,Urine 0.2 E.U./DL
== END | disposition home or self-care (01) ==
LOC: LABPAT 08:40
PROVIDERS: ATTEND Urology
DX: Z01.812 Encounter for preprocedural laboratory examination (principal); N20.0 Calculus of kidney
CPT/HCPCS: 80048; 81003; 85025; 87086

== ENCOUNTER 2023-10-03 09:18 | Day surgery (SDC) | payer OTHER ==
--- NOTE | 2023-10-01 18:14 | P.GSHP ---
History of Present Illness H&P Date: 10/01/23 38 yo female with a history of stones. She was recently in the er with left flank pain. She was identified to have a 4mm llp stone. Her pain persisted up to her office visit. we discussed treatment options. SHe wants the stone remioved. She understands that this may not relieve her pain. She comes for left ureteroscopy with laser lithotripsy - Constitutional Constitutional: Denies chills, Denies fever - EENT Eyes: denies blurred vision, denies pain Ears, nose, mouth and throat: Denies headache, Denies sore throat - Cardiovascular Cardiovascular: Denies chest pain, Denies shortness of breath - Respiratory Respiratory: Denies cough, Denies 7 - Gastrointestinal Gastrointestinal: Denies abdominal pain, Denies diarrhea, Denies nausea, Denies vomiting - Genitourinary (Female) Genitourinary: Denies dysuria, Denies hematuria - Genitourinary (Male) Genitourinary: Denies dysuria, Denies hematuria - Musculoskeletal Musculoskeletal: Denies myalgias - Integumentary Integumentary: Denies pruritus, Denies rash - Neurological Neurological: Denies numbness, Denies weakness - Psychiatric Psychiatric: Denies anxiety, Denies depression - Endocrine Endocrine: Denies fatigue, Denies weight change Past Medical History Past Medical History: Asthma, GERD/Reflux Additional Past Medical History / Comment(s): polycystic ovarian cyst, seasonal allergies. hx kidney stone , hiatal hernia per CT History of Any Multi-Drug Resistant Organisms: C-DIFF Date of last positivie culture/infection: 2021 MDRO Source:: stool Past Surgical History: Bariatric Surgery, Section, Cholecystectomy, Hysterectomy, Uterine Ablation Additional Past Surgical History / Comment(s): D&C, partial hysterectomy (bilateral ovaries retained) August 2017, EGD,sleeve gastrectomy 02-27-19. kidney stone removal Past Anesthesia/Blood Transfusion Reactions: Motion Sickness, Postoperative Nausea & Vomiting (PONV) Additional Past Anesthesia/Blood Transfusion Reaction / Comment(s): no blood tranfusions Past Psychological History: Anxiety Smoking Status: Never smoker Past Alcohol Use History: None Reported Past Drug Use History: None Reported - Past Family History Mother Family Medical History: Hypertension Father Additional Family Medical History / Comment(s): at age 46 from unknown causes. Medications and Allergies Home Medications Medication Instructions Recorded Confirmed Type traZODone HCL 100 mg PO HS PRN 07/09/21 06/04/23 History ALPRAZolam [Xanax] 1 mg PO DAILY PRN 06/27/22 06/04/23 History Fexofenadine HCl [Fe Allergy] 180 mg PO DAILY 06/27/22 06/04/23 History Fluticasone Nasal [place] [Flonase 1 spray EA NOSTRIL BID PRN 06/27/22 06/04/23 History Nasal [place]] Desvenlafaxine Succinate [Pristiq] 50 mg PO HS 05/30/23 06/04/23 History Acetaminophen [Acetaminophen 8 hr] 650 mg PO Q8H #15 tab 08/18/23 Rx Ibuprofen [Motrin] 800 mg PO Q8H #15 tab 08/18/23 Rx Ondansetron Odt [Zofran Odt] 4 mg PO Q8HR PRN #10 tab 08/18/23 Rx Allergies Allergy/AdvReac Type Severity Reaction Status Date / Time erythromycin base Allergy Severe Anaphylaxis Verified 08/18/23 18:52 amoxicillin [From Augmentin] Allergy Anaphylaxis Verified 08/18/23 18:52 clavulanic acid Allergy Anaphylaxis Verified 08/18/23 18:52 [From Augmentin] sulfamethoxazole Allergy Rash/Hives Verified 08/18/23 18:52 [From Bactrim] trimethoprim [From Bactrim] Allergy Rash/Hives Verified 08/18/23 18:52 Surgical - Exam - General well developed, well nourished, no distress - Eyes normal ocular movement, no icteric - ENT no hearing loss, no congestion - Neck no masses, trachea midline - Respiratory normal respiratory effort, clear to auscultation - Abdomen Abdomen: soft, non tender, no guarding, no rigid, no rebound - Integumentary no rash, no abnormal pigmentation - Neurologic no disoriented, no combative - Psychiatric oriented to time, oriented to person, oriented to place, speech is normal, memory intact Results - Imaging CT scan - abdomen: report reviewed, image reviewed CT scan - pelvis: report reviewed, image reviewed Assessment and Plan Assessment: Impression: left renal stone. Left flank pain Plan: cysto with left ureteroscopy with laser lithotripsy. The risks and complications have been discussed. She understands that stone removal may not relieve her pain
[2023-10-02 09:47] VITALS: BMI 49.8
[~2023-10-03 09:18] MED LIST changes: +HYDROmorphone 0.5 MG/0.5 ML SYRINGE IVP PRN; -LACTATED RINGERS 1,000 ML IV SCH; -LIDOCAINE 1% (10MG/ML) FOR IV START INTRADERMA PRN; +fentaNYL (PF) 50 MCG/ML 2 ML AMP IV PRN
--- NOTE | 2023-10-03 09:46 | XR ---
EXAMINATION TYPE: XR KUB DATE OF EXAM: 10/03/2023 COMPARISON: 08/17/2023 INDICATION: Kidney stones TECHNIQUE: Single view abdomen frontal projection FINDINGS: There is a normal bowel gas pattern. Psoas margins are normal. No organomegaly is present. There is attempted sacralization of L5. Punctate calcification may be at the inferior pole left kidney. IMPRESSION: 1. Punctate calcification overlying the inferior pole left kidney, present previously.
[2023-10-03] MEDS: LACTATED RINGERS 1,000 ML IV SCH (10:36)
[2023-10-03] MEDS: SCOPOLAMINE 1 MG/72 HR PATCH TRANSDERM ONE (10:37)
[2023-10-03] MEDS: ONDANSETRON 4 MG/2 ML VIAL IVP ONE (10:37)
[2023-10-03] MEDS: DEXAMETHASONE SOD PHOSPHATE 4 MG/ML 1 ML VIAL IV ONE (10:37)
[2023-10-03] MEDS: LIDOCAINE 1% (10MG/ML) FOR IV START INTRADERMA PRN (10:37)
[2023-10-03] MEDS ORDERED: MIDAZOLAM 2 MG/2 ML VIAL ONE (11:35)
[2023-10-03] MEDS ORDERED: LIDOCAINE 1% INJ 10MG/ML (20 ML MDV) ONE (11:35)
[2023-10-03] MEDS ORDERED: fentaNYL (PF) 50 MCG/ML 2 ML AMP ONE (11:35)
[2023-10-03] MEDS ORDERED: HYDROmorphone (PF) 1 MG/ML ONE (11:35)
[2023-10-03] MEDS ORDERED: SUCCINYLCHOLINE CHLORIDE 200 MG/10 ML VIAL IV ONE (11:35)
[2023-10-03] MEDS ORDERED: PROPOFOL 10 MG/ML 20 ML VIAL IV ONE (11:35)
--- NOTE | 2023-10-03 12:14 | P.OP ---
Date of Procedure: 10/03/23 Preoperative Diagnosis: left renal stone with colic Postoperative Diagnosis: same Procedure(s) Performed: cystoscopy with left ureteroscopy and laser lithotripsy Anesthesia: ANGELA Surgeon: Alexandre Mckinney Estimated Blood Loss (ml): 0 Pathology: none sent Condition: stable Disposition: PACU Indications for Procedure: patient is 38. She has a history of stones. She was in the emergency room with left flank pain. A computed tomography scan identified a 4 mm left mid to lower pole stone. We discussed the diagnosis, the causes of pain and treatment options. We'll proceed with ureteroscopy and laser lithotripsy. She understands this may or may not control her discomfort Description of Procedure: patient brought to the operating suite. Given general anesthetic. Placed lithotomy position with a sterile prep and drape. Cystoscopy Foroblique lens and 22-Czech sheath identifies a normal urethra. The bladder mucosa is unremarkable. The ureteral orifices are normal. Through the left ureteral orifice is passed an 035 wire up into the kidney. The cystoscope was removed. Over the wire then pass an 70-90-Wxhvev reentry ureteral sheath. The inner sheath is removed. Through the 13-Czech left ureteral sheath I passed the flexible ureteroscope up in the left kidney. I slowly move through each minor calyx and eventually identify the stone which is attached to the renal papilla. With the 270 laser probe I dust the stone. There are no remaining fragments to basket or to cause any discomfort. She would pass this and without any difficulty. Do a pullout ureteroscopy and do not identify any stones or obstruction and the ureter. The ureteroscope is removed. The bladder is drained. The patient is awakened and returned recovery room good condition. Blood loss is negligible.
[2023-10-03 12:39] VITALS: TEMP 97.6
[2023-10-03] MEDS: METOCLOPRAMIDE 5 MG/ML 2 ML VIAL IVP PRN (12:39)
--- NOTE | 2023-10-03 12:41 | FL ---
Fluoroscopy INDICATION: Pain FINDINGS: Fluoroscopy time: 27 seconds. Total dose area product (DAP) in uGy*m?, mGy*cm? (or similar): 6.3495 Images obtained: 0. IMPRESSION: 1. Documentation of fluoroscopy.
[2023-10-03] MEDS ORDERED: KETOROLAC 15 MG/ML 1 ML VIAL IM STA (12:50)
[2023-10-03] MEDS: KETOROLAC 15 MG/ML 1 ML VIAL IVP ONE (12:53)
[2023-10-03] MEDS ORDERED: HYDROcodone/APAP 5-325MG 1 EACH TAB ONE (14:09)
[2023-10-03] MEDS: HYDROcodone/APAP 5-325MG 1 EACH TAB PO ONE (14:10)
[2023-10-03 14:27] VITALS: BP 120/76; PULSE 70; RESP 20
== END 2023-10-03 14:42 | disposition home or self-care (01) ==
LOC: OR 09:18
PROVIDERS: ATTEND Urology
DX: N20.0 Calculus of kidney (principal); F41.9 Anxiety disorder, unspecified; J45.909 Unspecified asthma, uncomplicated; K21.9 Gastro-esophageal reflux disease without esophagitis; Z88.0 Allergy status to penicillin; Z88.1 Allergy status to other antibiotic agents; Z88.2 Allergy status to sulfonamides; Z90.49 Acquired absence of other specified parts of digestive tract; Z90.710 Acquired absence of both cervix and uterus; Z79.899 Other long term (current) drug therapy
CPT/HCPCS: 74018; 52353; C1769; J2250; J0330; J1100; J2765; J0690; J2405; J2001; J3010; J1170; J1885; J2704

== ENCOUNTER 2024-01-14 09:30 | Emergency (ER) | payer OTHER ==
[2024-01-14 09:34] VITALS: TEMP 97.4
[2024-01-14 10:19] LABS: Basophils % (A) 0 %; Eosinophils # (A) 0.2 k/uL (0-0.7); Eosinophils % (A) 2 %; HCT 40.1 % (34.0-46.0); HGB 13.5 gm/dL (11.4-16.0); Lymphocytes # (A) 1.6 k/uL (1.0-4.8); Lymphocytes % (A) 18 %; MCH 30.3 pg (25.0-35.0); MCHC 33.6 g/dL (31.0-37.0); MCV 90.1 fL (80.0-100.0); Monocytes # (A) 0.5 k/uL (0-1.0); Monocytes % (A) 5 %; Neutrophils # (A) 6.6 k/uL (1.3-7.7); Neutrophils % (A) 74 %; Platelet Count 284 k/uL (150-450); RBC 4.45 m/uL (3.80-5.40); RDW 13.4 % (11.5-15.5); WBC 8.8 k/uL (3.8-10.6)
--- NOTE | 2024-01-14 10:30 | XR ---
EXAMINATION TYPE: XR chest 2V DATE OF EXAM: 01/14/2024 COMPARISON: NONE HISTORY: Chest pain TECHNIQUE: Frontal and lateral views of the chest are obtained. FINDINGS: There is no focal air space opacity. No evidence for pneumothorax. No pleural effusion. The cardiac silhouette size is within normal limits. The osseous structures are grossly intact. IMPRESSION: 1. No acute cardiopulmonary process.
[2024-01-14 10:37] LABS: ALT 11 U/L (4-34); AST 15 U/L (14-36); African American GFR (CKD) >90 (>60 ml/min/1.73 sqM); Albumin 3.6 g/dL (3.5-5.0); Alkaline Phosphatase 63 U/L (38-126); Anion Gap 4 mmol/L; Blood Urea Nitrogen 15 mg/dL (7-17); Calcium 9.1 mg/dL (8.4-10.2); Carbon Dioxide 28 mmol/L (22-30); Chloride 107 mmol/L (98-107); Glucose 83 mg/dL (74-99); Magnesium 1.9 mg/dL (1.6-2.3); Non-African American GFR(CKD) 89 (>60 ml/min/1.73 sqM); Sodium 139 mmol/L (137-145); Total Bilirubin 0.3 mg/dL (0.2-1.3); Total Protein 5.6 g/dL (6.3-8.2)
[2024-01-14 10:45] LABS: NT-Pro-B-Type Natriuretic Pept 257 pg/mL
[2024-01-14 10:46] LABS: HCG,Qualitative Serum Not Detected
[2024-01-14 11:12] LABS: INR 0.9 (<1.2); Partial Thromboplastin Time 24.7 sec (22.0-30.0); Prothrombin Time 10.3 sec (10.0-12.5)
[2024-01-14 11:21] VITALS: RESP 18
--- NOTE | 2024-01-14 11:38 | ED ---
Chest Pain HPI - General Chief Complaint: Chest Pain Stated Complaint: Chest Pain Time Seen by Provider: 01/14/24 09:55 Source: patient, RN notes reviewed Mode of arrival: wheelchair Limitations: no limitations - History of Present Illness Initial Comments: This is a 38-year-old female who presents to the emergency department for chest pain. States that it started about 16 hours ago. Describes it as a centralized aching/tightness sensation. Reports some associated shortness of breath. Denies any radiation of pain. She has no personal or family history of cardiac problems. Additionally, states that her whole body feels swollen and she was recently seen by her primary care provider, who advised that she may have lupus. MD Complaint: chest pain - Related Data Home Medications Medication Instructions Recorded Confirmed traZODone HCL 100 mg PO HS PRN 07/09/21 10/02/23 ALPRAZolam [Xanax] 1 mg PO DAILY PRN 06/27/22 10/02/23 Fexofenadine HCl [Fe Allergy] 180 mg PO DAILY 06/27/22 10/02/23 Fluticasone Nasal [place] [Flonase 1 spray EA NOSTRIL BID PRN 06/27/22 10/02/23 Nasal [place]] Desvenlafaxine Succinate [Pristiq] 50 mg PO HS 05/30/23 10/02/23 hydroCHLOROthiazide 25 mg PO DAILY 10/02/23 10/02/23 Allergies Allergy/AdvReac Type Severity Reaction Status Date / Time erythromycin base Allergy Severe Anaphylaxis Verified 01/14/24 09:34 amoxicillin [From Augmentin] Allergy Anaphylaxis Verified 01/14/24 09:34 clavulanic acid Allergy Anaphylaxis Verified 01/14/24 09:34 [From Augmentin] sulfamethoxazole Allergy Rash/Hives Verified 01/14/24 09:34 [From Bactrim] trimethoprim [From Bactrim] Allergy Rash/Hives Verified 01/14/24 09:34 Review of Systems ROS Statement: Those systems with pertinent positive or pertinent negative responses have been documented in the HPI. ROS Other: All systems not noted in ROS Statement are negative. Past Medical History Past Medical History: Asthma, GERD/Reflux Additional Past Medical History / Comment(s): polycystic ovarian cyst, seasonal allergies. hx kidney stone , hiatal hernia per CT History of Any Multi-Drug Resistant Organisms: C-DIFF Date of last positivie culture/infection: 2021 MDRO Source:: stool Past Surgical History: Hysterectomy Additional Past Surgical History / Comment(s): D&C, partial hysterectomy (bilateral ovaries retained) August 2017, EGD,sleeve gastrectomy 02-27-19. kidney stone removal Past Anesthesia/Blood Transfusion Reactions: Motion Sickness, Postoperative Nausea & Vomiting (PONV) Additional Past Anesthesia/Blood Transfusion Reaction / Comment(s): no blood tranfusions Past Psychological History: Anxiety Smoking Status: Never smoker Past Alcohol Use History: None Reported Past Drug Use History: None Reported - Past Family History Mother Family Medical History: Hypertension Father Additional Family Medical History / Comment(s): at age 46 from unknown causes. General Exam Limitations: no limitations General appearance: alert, in no apparent distress Head exam: Present: atraumatic, normocephalic, normal inspection Respiratory exam: Present: normal lung sounds bilaterally. Absent: respiratory distress, wheezes, rales, rhonchi, stridor Cardiovascular Exam: Present: regular rate, normal rhythm, normal heart sounds. Absent: systolic murmur, diastolic murmur, rubs, gallop, clicks Neurological exam: Present: alert, oriented X3, CN II-XII intact Psychiatric exam: Present: normal affect, normal mood Skin exam: Present: warm, dry, intact, normal color. Absent: rash Course Vital Signs 01/14/24 01/14/24 01/14/24 09:31 09:34 12:15 Temperature 97.4 F L Pulse Rate 75 70 80 Respiratory 16 18 18 Rate Blood Pressure 141/80 150/80 132/76 O2 Sat by Pulse 100 98 100 Oximetry Chest Pain MDM - MDM This is a 38-year-old female who presents to the emergency department for chest pain. Was pt. sent in by a medical professional or institution? @ -No Did you speak to anyone other than the patient for history? @ -No Did you review nursing and triage notes? @ -Yes, and I agree, it is accurate with regards to the patient's symptoms. Were old charts reviewed? @ -No Differential Diagnosis? @ -Differential Chest Pain: Stable Angina, Unstable Angina, STEMI, NSTEMI Aortic Dissection, Pneumothorax, Musculoskeletal, Esophageal Spasm GERD, Cholecystitis, Pancreatitis, Zoster, this is not meant to be an all-inclusive list. EKG interpreted by me (3pts min.)? @ -EKG interpreted by me demonstrating the following: Sinus rhythm. V entricular rate 65 bpm, ID interval 161 ms, QRS duration 100 ms, QTc 429 ms. X-rays interpreted by me (1pt min.)? @ -Chest x-ray obtained, my interpretation identifies no localized consolidations or infiltrates. CT interpreted by me (1pt min.)? @ -Not obtained U/S interpreted by me (1pt. min.)? @ -Not obtained What testing was considered but not performed? (CT, X-rays, U/S, labs)? Why? @ -None What meds were considered but not given? Why? @ -None Did you discuss the management of the patient with other professionals? @ -No Did you reconcile home meds? @ -No Was smoking cessation discussed for >3mins.? @ -No Was critical care preformed (if so, how long)? @ -No Were there social determinants of health that impacted care today? How? (Homelessness, low income, unemployed, alcoholism, drug addiction, transportation, low edu. Level, literacy, decrease access to med. care, nursing home, rehab)? @ -No Was there de-escalation of care discussed even if they declined? (Discuss DNR or withdrawal of care, Hospice)? @ -No What co-morbidities impacted this encounter? (DM, HTN, Smoking, COPD, CAD, Cancer, CVA, Hep., AIDS, mental health diagnosis, sleep apnea, morbid obesity)? @ -GERD Was patient admitted / discharged? @ -Discharged. Lab work unremarkable, including a negative troponin and negative D-dimer. Chest x-ray reveals no acute process. Patient is young with a low cardiac score and no personal or family history of cardiac problems. Advised that she can be discharged home at this time and have close follow-up with her primary care provider. Case discussed with ED attending Dr. Watkins. Return precautions reviewed in depth, the patient is instructed to return to the emergency department with any new, worsening, or concerning symptoms. Patient verbalized understanding. Undiagnosed new problem with uncertain prognosis? @ -None Drug Therapy requiring intensive monitoring for toxicity (Heparin, Nitro, Insulin, Cardizem)? @ -None Were any procedures done? @ -None Diagnosis/symptom? @ -Chest pain Acute, or Chronic, or Acute on Chronic? @ -Acute Uncomplicated (without systemic symptoms) or Complicated (systemic symptoms)? @ -Uncomplicated Side effects of treatment? @ -None Exacerbation, Progression, or Severe Exacerbation] @ -Not applicable Poses a threat to life or bodily function? @ -Unlikely Disposition Clinical Impression: Chest pain Disposition: HOME SELF-CARE Instructions (If sedation given, give patient instructions): Chest Pain (ED), Noncardiac Chest Pain (ED) Additional Instructions: Return to the emergency department with any new, worsening, or concerning symptoms. Follow up with your primary care provider in 1-2 days. Is patient prescribed a controlled substance at d/c from ED?: No Referrals: Shaquille Larios MD [Primary Care Provider] - 1-2 days Time of Disposition: 11:54
[2024-01-14 12:16] VITALS: BP 132/76; PULSE 80
== END 2024-01-14 12:16 | disposition home or self-care (01) ==
LOC: EC 09:30
DX: R07.9 Chest pain, unspecified
CPT/HCPCS: 36415; 71046; 80053; 83735; 83880; 84484; 84703; 85025; 85379; 85610; 85730; 93005; 99285

== ENCOUNTER → 2024-09-22 | Outpatient (CLI) | payer OTHER ==
--- NOTE | 2024-09-22 16:45 | US ---
EXAMINATION TYPE: US pelvis complete transvag DATE OF EXAM: 09/22/2024 COMPARISON: CT(08/18/2023) CLINICAL INDICATION: Female, 39 years old with history of R19.00 INTRA-ABD AND PELVIC SWELLING, MASS AND LUM; finding on MRI per pt, CT done here 08/18/2023 TECHNIQUE: Transvaginal (TV) and Transabdominal (TA) . Transabdominal grayscale sonographic images of the pelvis were acquired. Transvaginal sonographic im ages were medically necessary to better assess the following anatomy: Doppler imaging: Color Doppler Images were obtained. Spectral doppler images were obtained, Lt only. FINDINGS: EXAM MEASUREMENTS: Uterus: Surgically absent Endometrial Stripe: Surgically absent Right Ovary: Not visualized due to bowel gas. cm Left Ovary: 1.7x1.2x1.3cm slightly limited exam due to pt body habitus & overlying bowel 1. Uterus: Surgically absent 2. Endometrium: Surgically absent 3. Right Ovary: Obscured by overlying bowel gas 4. Left Ovary: Anechoic area seen: 1.0x1.0x1.0cm Spectral, color and waveform doppler imaging shows good arterial and venous flow within the ovaries ; there is no evidence for ovarian torsion. 5. Bilateral Adnexa: Hyperechoic area seen within Lt adnexa: 3.3x2.5x3.5cm IMPRESSION: Distinct from the normal-appearing left ovary there is a 3.5 cm hyperechoic oval mass. Fi nding could reflect endometrioma arising from the right ovary displaced into the left pelvis. O-RADS 2 almost certainly benign. Advise ultrasound follow-up in 2-3 months time to reassess. O-RADS 2021 [email or web address] [facility], , 09/22/2024 4:43 PM
== END | disposition home or self-care (01) ==
LOC: RADUSWWP 15:50
PROVIDERS: ATTEND Family Medicine
DX: R19.09 Other intra-abdominal and pelvic swelling, mass and lump (principal); N85.9 Noninflammatory disorder of uterus, unspecified
CPT/HCPCS: 76830; 76856; 93975

== ENCOUNTER 2024-11-12 07:50 | Emergency (ER) | payer OTHER ==
--- NOTE | 2024-11-12 08:15 | ED ---
General Adult HPI - General Chief complaint: Back Pain/Injury Stated complaint: back pain/urogenital Time Seen by Provider: 11/12/24 07:53 Source: patient Mode of arrival: ambulatory Limitations: no limitations - History of Present Illness Initial comments: Dictation was produced using [employer] dictation software. please excuse any grammatical, word or spelling errors. Chief Complaint: 39-year-old female presents to the emergency department for flank pain History of Present Illness: Patient 39-year-old female history of hysterectomy. States that for the last 6 days she has been having left-sided flank pain. Patient reports history of kidney stones. States that feels like her usual kidney stone pain. Complains of some mild nausea. States that she last had kidney stones removed several years ago. Patient refusing any pain medications at this time. Denies any fever chills or constitutional symptoms. Patient reports that her pain feels like her usual kidney stone pain The ROS documented in this emergency department record has been reviewed and confirmed by me. Those systems with pertinent positive or negative responses have been documented in the HPI. All other systems are other negative and/or noncontributory. - Related Data Home Medications Medication Instructions Recorded Confirmed traZODone HCL 100 mg PO HS PRN 07/09/21 10/02/23 ALPRAZolam [Xanax] 1 mg PO DAILY PRN 06/27/22 10/02/23 Fexofenadine HCl [Fe Allergy] 180 mg PO DAILY 06/27/22 10/02/23 Fluticasone Nasal [place] [Flonase 1 spray EA NOSTRIL BID PRN 06/27/22 10/02/23 Nasal [place]] Desvenlafaxine Succinate [Pristiq] 50 mg PO HS 05/30/23 10/02/23 hydroCHLOROthiazide 25 mg PO DAILY 10/02/23 10/02/23 Previous Rx's Medication Instructions Recorded HYDROcodone/APAP 5-325MG [[place] 1 tab PO Q6HR PRN 3 Days #12 tab 11/12/24 5-325] Allergies Allergy/AdvReac Type Severity Reaction Status Date / Time erythromycin base Allergy Severe Anaphylaxis Verified 01/14/24 09:34 amoxicillin [From Augmentin] Allergy Anaphylaxis Verified 01/14/24 09:34 clavulanic acid Allergy Anaphylaxis Verified 01/14/24 09:34 [From Augmentin] prednisone Allergy Rash/Hives Verified 11/12/24 07:54 sulfamethoxazole Allergy Rash/Hives Verified 01/14/24 09:34 [From Bactrim] trimethoprim [From Bactrim] Allergy Rash/Hives Verified 01/14/24 09:34 Review of Systems ROS Statement: Those systems with pertinent positive or pertinent negative responses have been documented in the HPI. ROS Other: All systems not noted in ROS Statement are negative. Past Medical History Past Medical History: Asthma, GERD/Reflux Additional Past Medical History / Comment(s): polycystic ovarian cyst, seasonal allergies. hx kidney stone , hiatal hernia per CT History of Any Multi-Drug Resistant Organisms: C-DIFF Date of last positivie culture/infection: 2021 MDRO Source:: stool Past Surgical History: Hysterectomy Additional Past Surgical History / Comment(s): D&C, partial hysterectomy (bilateral ovaries retained) August 2017, EGD,sleeve gastrectomy 02-27-19. kidney stone removal Past Anesthesia/Blood Transfusion Reactions: Motion Sickness, Postoperative Nausea & Vomiting (PONV) Additional Past Anesthesia/Blood Transfusion Reaction / Comment(s): no blood tranfusions Past Psychological History: Anxiety Smoking Status: Never smoker Past Alcohol Use History: None Reported Past Drug Use History: None Reported - Past Family History Mother Family Medical History: Hypertension Father Additional Family Medical History / Comment(s): at age 46 from unknown causes. General Exam - General Exam Comments Initial Comments: PHYSICAL EXAM: General Impression: Alert and oriented x3, not in acute distress HEENT: Normocephalic atraumatic, extra-ocular movements intact, pupils equal and reactive to light bilaterally, mucous membranes moist. Cardiovascular: Heart regular rate and rhythm Chest: Able to complete full sentences, no retractions, no tachypnea Abdomen: abdomen soft, non-tender, non-distended, no organomegaly Musculoskeletal: Pulses present and equal in all extremities, no peripheral edema Motor: no focal deficits noted Neurological: CN II-XII grossly intact, no focal motor or sensory deficits noted Skin: Intact with no visualized rashes Psych: Normal affect and mood Limitations: no limitations Course Vital Signs 11/12/24 11/12/24 07:51 08:56 Temperature 97.6 F Pulse Rate 80 77 Respiratory 16 18 Rate Blood Pressure 154/98 151/99 O2 Sat by Pulse 99 100 Oximetry Medical Decision Making - Medical Decision Making Was pt. sent in by a medical professional or institution (, PA, CROSSING GUARD, urgent care, hospital, or fci...) When possible be specific @ -No Did you speak to anyone other than the patient for history (EMS, parent, family, police, friend...)? What history was obtained from this source @ -No Did you review nursing and triage notes (agree or disagree)? Why? @ -I reviewed and agree with nursing and triage notes Were old charts reviewed (outside hosp., previous admission, EMS record, old EKG, old radiological studies, urgent care reports/EKG's, fci records)? Report findings @ -No old charts were reviewed Differential Diagnosis (chest pain, altered mental status, abdominal pain women, abdominal pain men, vaginal bleeding, musculoskeletal, weakness, fever, dyspnea, syncope, headache, dizziness, GI bleed, back pain, seizure, CVA, palpatations, mental health)? @ -Differential Abdominal Pain Women: Appendicitis, Cholecystitis, diverticulosis, ischemic bowel, pancreatitis, hepatitis, UTI, gastroenteritis, AAA, incarcerated hernia, bowel obstruction, constipation, inflammatory bowel, hepatitis, peptic ulcer disease, splenic infarction, perforated viscus, vulvitis, ovarian torsion, PID, kidney stone, placenta abruption, this is not meant to be an all-inclusive list EKG interpreted by me (3pts min.). @ -None done X-rays interpreted by me (1pt min.). @ -None done CT interpreted by me (1pt min.). @ -CT shows 3 mm nephrolithiasis to the left renal system U/S interpreted by me (1pt. min.). @ -None done What testing was considered but not performed or refused? (CT, X-rays, U/S, labs)? Why? @ -None What meds were considered but not given or refused? Why? @ -None Was smoking cessation discussed for >3mins.? @ -No Were there social determinants of health that impacted care today? How? (Homelessness, low income, unemployed, alcoholism, drug addiction, transportation, low edu. Level, literacy, decrease access to med. care, [facility], rehab)? @ -No Was there de-escalation of care discussed even if they declined (Discuss DNR or withdrawal of care, Hospice)? DNR status @ -No What co-morbidities impacted this encounter? (DM, HTN, Smoking, COPD, CAD, Cancer, CVA, ARF, Chemo, Hep., AIDS, mental health diagnosis, sleep apnea, morbid obesity)? @ -History of kidney stones Was patient admitted / discharged? Hospital course, mention meds given and r oute, prescriptions, significant lab abnormalities, going to OR and other pertinent info. @ -31-year-old female presents emergency department with obstructing nephrolithiasis. Vital signs stable. Patient well-appearing at the bedside. Laboratory evaluation obtained showing hematuria. Rest of labs negative. CT shows obstructing 3 mm nephrolithiasis at the UVJ. Patient discharged told to follow-up with urologist Did you discuss the management of the patient with other professionals (tereza myrick i.e., Dr., PA, CROSSING GUARD, lab, RT, psych nurse, high school social science teacher, truck striker, teacher, sheriffs officer, case packer)? Give summary @ -No Was critical care preformed (if so, how long)? @ -No Undiagnosed new problem with uncertain prognosis? @ -No Drug Therapy requiring intensive monitoring for toxicity (Heparin, Nitro, Insulin, Cardizem)? @ -No Were any procedures done? @ -No Diagnosis/symptom? Acute, or Chronic, or Acute on Chronic? Uncomplicated (without systemic symptoms) or Complicated (systemic symptoms)? @ -Kidney stone Side effects of treatment? @ -No Exacerbation, Progression, or Severe Exacerbation? @ -No Poses a threat to life or bodily function? How? (Chest pain, [place], [place], pneumonia, PE, COPD, DKA, ARF, appy, cholecystitis, CVA, Diverticulitis, Homicidal, Suicidal, threat to staff... and all critical care pts) @ -yes - Lab Data Result diagrams: 11/12/24 09:21 11/12/24 09:21 Lab Results 11/12/24 11/12/24 11/12/24 Range/Units 09:21 09:21 09:21 WBC 7.22 (4.50-10.00) 10*3/uL RBC 4.36 (4.10-5.20) 10*6/uL Hgb 13.2 (12.0-15.0) g/dL Hct 39.7 (37.2-46.3) % MCV 91.1 (80.0-97.0) fL MCH 30.3 (27.0-32.0) pg MCHC 33.2 (32.0-37.0) g/dL Plt Count 295 (140-440) 10*3/uL MPV 9.9 (9.5-12.2) fL Immature Gran % (Auto) 0.4 % Neutrophils % 72.7 % Lymphocytes % 18.3 % Monocytes % 7.2 % Eosinophils % 1.4 % Basophils % 0.0 % Immature Gran # 0.03 (0.00-0.04) 10*3/uL Neutrophils # 5.25 (1.80-7.70) 10*3/uL Lymphocytes # 1.32 (0.90-5.00) 10*3/uL Monocytes # 0.52 (0.20-1.00) 10*3/uL Eosinophils # 0.10 (0.04-0.35) 10*3/uL Basophils # 0.00 (0.00-0.10) 10*3/uL Sodium 139 (137-145) mmol/L Potassium 4.1 (3.5-5.1) mmol/L Chloride 107 (98-107) mmol/L Carbon Dioxide 25 (22-30) mmol/L Anion Gap 7 mmol/L BUN 15 (7-17) mg/dL Creatinine 0.81 (0.52-1.04) mg/dL Est GFR (CKD-EPI)AfAm >90 (>60 ml/min/1.73 sqM) Est GFR (CKD-EPI)NonAf >90 (>60 ml/min/1.73 sqM) Glucose 88 (74-99) mg/dL Calcium 9.5 (8.4-10.2) mg/dL Urine Color Light Red Urine Appearance Turbid H (Clear) Urine pH 5.5 (5.0-8.0) Ur Specific [place] 1.030 (1.001-1.035) Urine Protein 1+ H (Negative) Urine Glucose (UA) Negative (Negative) Urine Ketones Negative (Negative) Urine Blood Large H (Negative) Urine Nitrite Negative (Negative) Urine Bilirubin Negative (Negative) Urine Urobilinogen 2.0 (<2.0) mg/dL Ur Leukocyte Esterase Negative (Negative) Urine RBC >182 H (0-5) /hpf Urine WBC 4 (0-5) /hpf Ur Squamous Epith Cells 13 H (0-4) /hpf Calcium Oxalate Crystal Few H (None) /hpf Urine Mucus Many H (None) /hpf Disposition Clinical Impression: Kidney stone Disposition: HOME SELF-CARE Condition: Fair Instructions (If sedation given, give patient instructions): Kidney Stones (ED) Prescriptions: HYDROcodone/APAP 5-325MG [[place] 5-325] 1 tab PO Q6HR PRN 3 Days #12 tab PRN Reason: Severe Pain Is patient prescribed a controlled substance at d/c from ED?: Yes If prescribed controlled substance>3 days was MAPS reviewed?: Prescribed <3 Days Referrals: Alexandre Mckinney MD [STAFF PHYSICIAN] - 1-2 days Time of Disposition: 10:13
--- NOTE | 2024-11-12 08:43 | CT ---
EXAMINATION TYPE: CT abdomen pelvis wo con CT DLP: 1413.9 mGycm, Automated exposure control for dose reduction was used. DATE OF EXAM: 11/12/2024 8:34 AM COMPARISON: CT abdomen pelvis 08/18/2023, pelvic ultrasound 09/22/2024 CLINICAL INDICATION:Female, 39 years old with history of left flank pain; Left flank pain TECHNIQUE: Standard CT of the abdomen and pelvis without IV or oral contrast. Lack of IV or oral co ntrast limits evaluation of solid and hollow organ viscera. Coronal and sagittal reformats were perfo rmed. FINDINGS: LOWER CHEST: Minimal posterior dependent subsegmental atelectasis is noted. Mildly prominent heart. ABDOMEN LIVER: Diffusely hypoattenuating parenchyma. GALLBLADDER AND BILE DUCTS: The gallbladder is surgically absent. No biliary ductal dilatation. PANCREAS: Unremarkable noncontrast appearance SPLEEN: Unremarkable noncontrast appearance ADRENAL GLANDS: Unremarkable noncontrast appearance. KIDNEYS AND URETERS: No right-sided hydronephrosis or renal calculi. Mild left hydroureteronephrosis with an obstructing 3 mm calculus at the ureteropelvic junction. No other left renal calculi identifi ed. PELVIS BLADDER: Underdistended but grossly unremarkable. REPRODUCTIVE: The uterus is surgically absent. Bilateral ovarian dominant follicular cysts. ABDOMEN & PELVIS STOMACH AND BOWEL: Postsurgical changes from gastric sleeve.No focal bowel wall thickening or surroun ding inflammatory changes identified. The appendix is within normal limits. No evidence of bowel obst ruction. PERITONEUM: No evidence of pneumoperitoneum or free fluid. VASCULATURE: No evidence of aortic aneurysm. MUSCULOSKELETAL: No acute osseous abnormalities LYMPH NODES: No gross evidence for lymphadenopathy. SOFT TISSUE/ABDOMINAL WALL: Unremarkable IMPRESSION: Mild left hydroureteronephrosis with an obstructing 3 mm calculus at the ureteropelvic junction. Hepatic steatosis. [facility], , 11/12/2024 8:41 AM
[2024-11-12 09:33] LABS: Basophils # (A) 0.00 10*3/uL (0.00-0.10); Basophils % (A) 0.0 %; Eosinophils # (A) 0.10 10*3/uL (0.04-0.35); Eosinophils % (A) 1.4 %; HCT 39.7 % (37.2-46.3); HGB 13.2 g/dL (12.0-15.0); Lymphocytes # (A) 1.32 10*3/uL (0.90-5.00); Lymphocytes % (A) 18.3 %; MCH 30.3 pg (27.0-32.0); MCHC 33.2 g/dL (32.0-37.0); MCV 91.1 fL (80.0-97.0); Monocytes # (A) 0.52 10*3/uL (0.20-1.00); Monocytes % (A) 7.2 %; Neutrophils # (A) 5.25 10*3/uL (1.80-7.70); Neutrophils % (A) 72.7 %; Platelet Count 295 10*3/uL (140-440); RBC 4.36 10*6/uL (4.10-5.20); RDW 14.7 % (11.5-14.5); WBC 7.22 10*3/uL (4.50-10.00)
[2024-11-12 09:41] LABS: Bilirubin,Urine Negative (Negative); Blood,Urine Large (Negative); Calcium Oxalate Crystals,Urine Few /hpf; Color,Urine Light Red; Glucose,Urine (UA) Negative (Negative); Ketones,Urine Negative (Negative); Leukocyte Esterase,Urine Negative (Negative); Mucus,Urine Many /hpf; Nitrite,Urine Negative (Negative); PH, Urine 5.5 (5.0-8.0); Protein,Urine 1+ (Negative); RBC,Urine >182 /hpf (0-5); Specific Gravity,Urine 1.030 (1.001-1.035); Squamous Epithelial Cell,Urine 13 /hpf (0-4); Urobilinogen,Urine 2.0 mg/dL (<2.0); WBC,Urine 4 /hpf (0-5)
[2024-11-12 09:59] LABS: African American GFR (CKD) >90 (>60 ml/min/1.73 sqM); Anion Gap 7 mmol/L; Blood Urea Nitrogen 15 mg/dL (7-17); Calcium 9.5 mg/dL (8.4-10.2); Carbon Dioxide 25 mmol/L (22-30); Chloride 107 mmol/L (98-107); Glucose 88 mg/dL (74-99); Non-African American GFR(CKD) >90 (>60 ml/min/1.73 sqM); Potassium 4.1 mmol/L (3.5-5.1); Sodium 139 mmol/L (137-145)
[2024-11-12] MEDS: KETOROLAC 15 MG/ML 1 ML VIAL IVP STA (10:07)
[2024-11-12 10:37] VITALS: BP 122/85; PULSE 70; RESP 16; TEMP 98
== END 2024-11-12 15:36 | disposition home or self-care (01) ==
LOC: EC 07:50
DX: N13.2 Hydronephrosis with renal and ureteral calculous obstruction (principal); Z88.0 Allergy status to penicillin; Z88.2 Allergy status to sulfonamides; Z88.1 Allergy status to other antibiotic agents; Z88.8 Allergy status to other drugs, medicaments and biological substances
CPT/HCPCS: 36415; 80048; 85025; 81001; 74176; 99284; 96374; J1885

== ENCOUNTER → 2024-11-21 | Outpatient (CLI) | payer OTHER ==
[2024-11-21 19:53] LABS: Anion Gap 9.60 mmol/L (4.00-12.00); BUN/Creat Ratio 10.22 Ratio (12.00-20.00); Blood Urea Nitrogen 9.2 mg/dL (9.0-27.0); Calcium 8.6 mg/dL (8.7-10.3); Carbon Dioxide 21.4 mmol/L (21.6-31.8); Chloride 108 mmol/L (96-109); Glucose 106 mg/dL (70-110); Potassium 4.0 mmol/L (3.5-5.5); Sodium 139 mmol/L (135-145)
[2024-11-21 20:22] LABS: Basophils # (A) 0.01 X 10*3/uL (0.00-0.10); Basophils % (A) 0.1 %; Eosinophils # (A) 0.11 X 10*3/uL (0.04-0.35); Eosinophils % (A) 1.1 %; HCT 40.8 % (37.2-46.3); HGB 12.9 g/dL (12.0-15.0); Immature Grans, Automated 0.30 %; Lymphocytes # (A) 1.66 X 10*3/uL (0.90-5.00); Lymphocytes % (A) 16.9 %; MCH 29.2 pg (27.0-32.0); MCHC 31.6 g/dL (32.0-37.0); MCV 92.3 FL (80.0-97.0); Monocytes # (A) 0.64 X 10*3/uL (0.20-1.00); Monocytes % (A) 6.5 %; NRBC Per 100 WBC 0 X 10*3/uL (0.00-0.01); Neutrophils # (A) 7.40 X 10*3/uL (1.80-7.70); Neutrophils % (A) 75.1 %; Platelet Count 339 X 10*3/uL (140-440); RBC 4.42 X 10*6/uL (4.10-5.20); RDW 15.2 % (11.5-14.5); WBC 9.85 X 10*3/uL (4.50-10.00)
== END | disposition home or self-care (01) ==
LOC: LABWHC1 13:32
PROVIDERS: ATTEND Urology
DX: Z01.812 Encounter for preprocedural laboratory examination (principal); N20.1 Calculus of ureter
CPT/HCPCS: 36415; 80048; 85025

== ENCOUNTER 2024-11-26 07:23 | Day surgery (SDC) | payer OTHER ==
--- NOTE | 2024-11-26 07:44 | XR ---
EXAMINATION TYPE: XR KUB DATE OF EXAM: 11/26/2024 7:35 AM COMPARISON: 08/17/[address] 11/12/2024 CLINICAL INDICATION: Female, 39 years old with history of N20.1 Left Ureteral Stone; PHH, pain TECHNIQUE: One radiographic view of the abdomen was obtained. FINDINGS: Punctate 3 mm calcification projecting of the right upper quadrant, possible tiny gallstone or surgic al material. Round sclerotic focus projecting over the right iliac bone measuring 7 mm is unchanged, possible bone island. Minimal stool in the right side of the abdomen. Also within the rectum. No dila marion small bowel loops. Transitional lumbosacral segment. IMPRESSION: A 3 mm calcification projecting in the right upper quadrant could represent a tiny retained gallstone versus surgical material. Unchanged from prior. The punctate proximal left ureteral stone seen on 11/12/2024 CT is not well appreciated on radiograph. [facility], Workstation: [email or web address] [id number], 11/26/2024 7:42 AM
[2024-11-26] MEDS: IV FLUID CONTINUATION 1,000 ML IV ONE ×3 (08:18→11:39)
[2024-11-26] MEDS: LACTATED RINGERS 1,000 ML IV SCH (08:19)
[2024-11-26] MEDS: ONDANSETRON 4 MG/2 ML VIAL IVP ONE (08:21)
[2024-11-26] MEDS: DEXAMETHASONE SOD PHOSPHATE 4 MG/ML 1 ML VIAL IV ONE (08:21)
[2024-11-26] MEDS: SCOPOLAMINE 1 MG/72 HR PATCH TRANSDERM STA (08:22)
--- NOTE | 2024-11-26 08:44 | P.GSHP ---
History of Present Illness H&P Date: 11/26/24 39-year-old female with a history of stones. She has a stone in the left UPJ. She has had previous stone removal and therefore does not wish to try to pass for this. She will come for cystoscopy left ureteroscopy and laser lithotripsy. She rates her pain today as a 6 out of 10. And KUB the stone is an obviously seen but I will do a cystoscopy retrograde and procedure is indicated. - Constitutional Constitutional: Denies chills, Denies fever - EENT Eyes: denies blurred vision, denies pain Ears, nose, mouth and throat: Denies headache, Denies sore throat - Cardiovascular Cardiovascular: Denies chest pain, Denies shortness of breath - Respiratory Respiratory: Denies cough, Denies 7 - Gastrointestinal Gastrointestinal: Denies abdominal pain, Denies diarrhea, Denies nausea, Denies vomiting - Genitourinary (Female) Genitourinary: Denies dysuria, Denies hematuria - Genitourinary (Male) Genitourinary: Denies dysuria, Denies hematuria - Musculoskeletal Musculoskeletal: Denies myalgias - Integumentary Integumentary: Denies pruritus, Denies rash - Neurological Neurological: Denies numbness, Denies weakness - Psychiatric Psychiatric: Denies anxiety, Denies depression - Endocrine Endocrine: Denies fatigue, Denies weight change Past Medical History Past Medical History: Asthma, GERD/Reflux Additional Past Medical History / Comment(s): PCOS, seasonal allergies, hx kidney stone, hiatal hernia per CT History of Any Multi-Drug Resistant Organisms: C-DIFF Date of last positivie culture/infection: 2021 MDRO Source:: stool Past Surgical History: Bariatric Surgery, Section, Cholecystectomy, Hysterectomy Additional Past Surgical History / Comment(s): D&C, partial hysterectomy (bilateral ovaries retained) August 2017, EGD, sleeve gastrectomy 02-27-19, kidney stone removal Past Anesthesia/Blood Transfusion Reactions: Motion Sickness, Postoperative Nausea & Vomiting (PONV) Additional Past Anesthesia/Blood Transfusion Reaction / Comment(s): no blood tranfusions Past Psychological History: No Psychological Hx Reported Smoking Status: Never smoker Past Alcohol Use History: None Reported Past Drug Use History: None Reported - Past Family History Mother Family Medical History: Hypertension Father Family Medical History: No Reported History Additional Family Medical History / Comment(s): at age 46 from unknown causes. Medications and Allergies Home Medications Medication Instructions Recorded Confirmed Type ALPRAZolam [Xanax] 1 mg PO DAILY PRN 06/27/22 11/26/24 History Dextroamphetamine/Amphetamine 20 mg PO BID PRN 11/24/24 11/26/24 History [Adderall] Allergies Allergy/AdvReac Type Severity Reaction Status Date / Time erythromycin base Allergy Severe Anaphylaxis Verified 11/24/24 10:15 amoxicillin [From Augmentin] Allergy Anaphylaxis Verified 11/24/24 10:15 clavulanic acid Allergy Anaphylaxis Verified 11/24/24 10:15 [From Augmentin] prednisone Allergy Rash/Hives Verified 11/26/24 07:51 sulfamethoxazole Allergy Rash/Hives Verified 11/26/24 07:51 [From Bactrim] trimethoprim [From Bactrim] Allergy Rash/Hives Verified 11/24/24 10:15 Surgical - Exam Vital Signs Temp Pulse Resp BP Pulse Ox 98.0 F 81 18 129/94 97 11/26/24 08:01 11/26/24 08:01 11/26/24 08:01 11/26/24 08:01 11/26/24 08:01 Results - Imaging Abdominal x-ray: report reviewed, image reviewed CT scan - abdomen: report reviewed, image reviewed CT scan - pelvis: report reviewed, image reviewed Assessment and Plan Assessment: IMPression: Left ureteral calculus with colic Recommendation cystoscopy left retrograde pyelogram left ureteroscopy and laser lithotripsy if indicated
[2024-11-26] MEDS ORDERED: PROPOFOL 10 MG/ML 20 ML VIAL IV ONE (09:08)
[2024-11-26] MEDS ORDERED: LIDOCAINE 1% INJ 10MG/ML (20 ML MDV) ONE (09:08)
[2024-11-26] MEDS ORDERED: MIDAZOLAM 2 MG/2 ML VIAL ONE (09:08)
[2024-11-26] MEDS ORDERED: fentaNYL (PF) 50 MCG/ML 2 ML AMP ONE (09:08)
[2024-11-26] MEDS ORDERED: SUCCINYLCHOLINE CHLORIDE 200 MG/10 ML VIAL IV ONE (09:08)
[2024-11-26] MEDS: IOPAMIDOL-370 50ML BTL MISCELLANE ONE (09:32)
--- NOTE | 2024-11-26 09:56 | FL ---
Fluoroscopy INDICATION: Pain FINDINGS: Fluoroscopy time: 1 minute 2 seconds. Total dose area product (DAP) in uGy*m?, mGy*cm? (or similar): 0.21618 Images obtained: 6. Images document the procedure. IMPRESSION: 1. Documentation of fluoroscopy. [facility], Workstation: [id number], 11/26/2024 9:54 AM
--- NOTE | 2024-11-26 09:58 | P.OP ---
Date of Procedure: 11/26/24 Preoperative Diagnosis: Left ureteral calculus with colic Postoperative Diagnosis: Same, passed Procedure(s) Performed: Cystoscopy, left retrograde pyelogram, left ureteroscopy Anesthesia: GRECIAA Surgeon: Alexandre Mckinney Estimated Blood Loss (ml): 0 Pathology: none sent Condition: stable Disposition: PACU Indications for Procedure: The patient is 39. She has a history of kidney stones. She had a previous ureteral stone that lodged at the UPJ and never passed requiring ureteroscopy and laser lithotripsy. She recently presented to the office again with another 3 mm proximal right ureteral stone. She did not wish to try to pass it. She comes for left ureteroscopy laser lithotripsy. The KUB does not show an obvious stone today. Description of Procedure: The patient was brought to the operating suite. She is given a general anesthetic. She is placed in lithotomy position with a sterile prep and drape. Cystoscopy Foroblique lens and 21 [place] sheath identifies a normal urethra. Both ureteral orifices are normal. The bladder mucosa is unremarkable. Within a cone-tip catheter left retrograde pyelograms performed. The ureter is followed all the way up into the kidney. It appears to be of normal course and caliber up to the UPJ where there is an area of dilation. This area of the UPJ does not appear to drain. It is uncertain as to whether there is a stone there. I therefore passed an 035 wire up into the kidney and over the wire is passed an 11-13 [place] reentry sheath. I passed the flexible ureteroscope up to this area and there is some narrowing of the ureter at this area but no stone is identified. I move into the renal pelvis and inspect each calyx individually and there is no evidence of stones. Pullout ureteroscopy does not identify any notable obstruction or stone. At the end of the procedure the ureteral sheath was removed. The bladder is drained. The patient is awakened and returned to recovery in good condition. Impression no evidence of ureteral stone Recommendations the patient will follow-up in the office.
[2024-11-26 10:15] VITALS: TEMP 96.8
[2024-11-26] MEDS: HYDROmorphone 0.5 MG/0.5 ML SYRINGE IVP PRN (10:45)
[2024-11-26] MEDS: KETOROLAC 15 MG/ML 1 ML VIAL IVP STA (11:34)
[2024-11-26 11:45] VITALS: RESP 18
[2024-11-26 12:07] VITALS: BP 147/85
[2024-11-26 13:00] VITALS: PULSE 85
== END 2024-11-26 13:27 | disposition home or self-care (01) ==
LOC: OR 07:23
PROVIDERS: ATTEND Urology
DX: N20.1 Calculus of ureter (principal); J45.909 Unspecified asthma, uncomplicated; K21.9 Gastro-esophageal reflux disease without esophagitis; E28.2 Polycystic ovarian syndrome; Z87.442 Personal history of urinary calculi; Z90.49 Acquired absence of other specified parts of digestive tract; Z98.84 Bariatric surgery status; Z90.710 Acquired absence of both cervix and uterus; Z88.1 Allergy status to other antibiotic agents; Z88.2 Allergy status to sulfonamides; Z88.8 Allergy status to other drugs, medicaments and biological substances
CPT/HCPCS: 74018; 52351; C1769; J2250; J0330; J1100; J0690; J2405; J2003; J3010; J1885; J2704; J1171

== ENCOUNTER → 2024-12-02 | Outpatient (CLI) | payer OTHER ==
--- NOTE | 2024-11-23 17:07 | P.GSHP ---
History of Present Illness H&P Date: 11/23/24 39 yo female with a history of stone disease. She recently presented with colic due to a 3mm left upj stones. In the past, two times, she has required ureteroscopy with laser lithotripsy to remove similar sized and located stones. She comes for left ureteroscopy with laser lithotripsy. alternatives have been discussed. - Constitutional Constitutional: Denies chills, Denies fever - EENT Eyes: denies blurred vision, denies pain Ears, nose, mouth and throat: Denies headache, Denies sore throat - Cardiovascular Cardiovascular: Denies chest pain, Denies shortness of breath - Respiratory Respiratory: Denies cough, Denies 7 - Gastrointestinal Gastrointestinal: Denies abdominal pain, Denies diarrhea, Denies nausea, Denies vomiting - Genitourinary (Female) Genitourinary: Denies dysuria, Denies hematuria - Genitourinary (Male) Genitourinary: Denies dysuria, Denies hematuria - Musculoskeletal Musculoskeletal: Denies myalgias - Integumentary Integumentary: Denies pruritus, Denies rash - Neurological Neurological: Denies numbness, Denies weakness - Psychiatric Psychiatric: Denies anxiety, Denies depression - Endocrine Endocrine: Denies fatigue, Denies weight change Past Medical History Past Medical History: Asthma, GERD/Reflux Additional Past Medical History / Comment(s): polycystic ovarian cyst, seasonal allergies. hx kidney stone , hiatal hernia per CT History of Any Multi-Drug Resistant Organisms: C-DIFF Date of last positivie culture/infection: 2021 MDRO Source:: stool Past Surgical History: Hysterectomy Additional Past Surgical History / Comment(s): D&C, partial hysterectomy (bilateral ovaries retained) August 2017, EGD,sleeve gastrectomy 02-27-19. kidney stone removal Past Anesthesia/Blood Transfusion Reactions: Motion Sickness, Postoperative Nausea & Vomiting (PONV) Additional Past Anesthesia/Blood Transfusion Reaction / Comment(s): no blood tranfusions Past Psychological History: Anxiety Smoking Status: Never smoker Past Alcohol Use History: None Reported Past Drug Use History: None Reported - Past Family History Mother Family Medical History: Hypertension Father Family Medical History: No Reported History Additional Family Medical History / Comment(s): at age 46 from unknown causes. Medications and Allergies Home Medications Medication Instructions Recorded Confirmed Type traZODone HCL 100 mg PO HS PRN 03/05/22 05/28/24 History ALPRAZolam [Xanax] 1 mg PO DAILY PRN 06/27/22 10/02/23 History Fexofenadine HCl [Fe Allergy] 180 mg PO DAILY 06/27/22 10/02/23 History Fluticasone Nasal [place] [Flonase 1 spray EA NOSTRIL BID PRN 06/27/22 10/02/23 History Nasal [place]] Desvenlafaxine Succinate [Pristiq] 50 mg PO HS 05/30/23 10/02/23 History hydroCHLOROthiazide 25 mg PO DAILY 10/02/23 10/02/23 History HYDROcodone/APAP 5-325MG [[place] 1 tab PO Q6HR PRN 3 Days #12 tab 11/12/24 Rx 5-325] Allergies Allergy/AdvReac Type Severity Reaction Status Date / Time erythromycin base Allergy Severe Anaphylaxis Verified 01/14/24 09:34 amoxicillin [From Augmentin] Allergy Anaphylaxis Verified 01/14/24 09:34 clavulanic acid Allergy Anaphylaxis Verified 01/14/24 09:34 [From Augmentin] prednisone Allergy Rash/Hives Verified 11/12/24 07:54 sulfamethoxazole Allergy Rash/Hives Verified 01/14/24 09:34 [From Bactrim] trimethoprim [From Bactrim] Allergy Rash/Hives Verified 01/14/24 09:34 Surgical - Exam - General well developed, well nourished, no distress - Eyes normal ocular movement, no icteric - ENT no hearing loss, no congestion - Neck no masses, trachea midline - Respiratory normal respiratory effort, clear to auscultation - Abdomen Abdomen: soft, non tender, no guarding, no rigid, no rebound - Integumentary no rash, no abnormal pigmentation - Neurologic no disoriented, no combative - Psychiatric oriented to time, oriented to person, oriented to place, speech is normal, memory intact Results - Imaging CT scan - abdomen: report reviewed, image reviewed CT scan - pelvis: report reviewed, image reviewed Assessment and Plan Assessment: Impression: left ureteral stone Plan: left ureteroscopy with laser lithotripsy
--- NOTE | 2024-12-03 08:51 | US ---
EXAMINATION TYPE: US pelvis complete transvag DATE OF EXAM: 12/02/2024 COMPARISON: 09/22/2024 CLINICAL INDICATION: Female, 39 years old with history of N83.8 NONINFLAMMATORY DISORDERS OF OVARY,FA LLOPIAN; f/u TECHNIQUE: Transvaginal (TV) and Transabdominal (TA) . Transabdominal grayscale sonographic images of the pelvis were acquired. Transvaginal sonographic im ages were medically necessary to better assess the following anatomy: Doppler imaging: Color Doppler Images were obtained. FINDINGS: EXAM MEASUREMENTS: Uterus: Surgically absent Endometrial Stripe: Surgically absent Right Ovary: Not visualized due to bowel gas. cm Left Ovary: 1.6x1.3x1.4cm cm slightly limited due to pt body habitus & overlying bowel 1. Uterus: Surgically absent 2. Endometrium: Surgically absent 3. Right Ovary: not confidently seen 4. Left Ovary: ?dominant follicle seen 5. Bilateral Adnexa: ?Complex area seen within ML/Lt Adnexa with spectral flow: 4.5x3.4x3.6cm ?Hyperechoic area seen ONLY TRANSABDOMINALLY: 2.1x2.7x2.3cm ?Comparison to ultrasound finding(09/22/2024): 3.3x2.5x2.5cm IMPRESSION: 1. Complex cystic areas seen with mural wall thickening and nodularity suggested. This could reflect retracted to hematoma. Neoplasm is not excluded and follow-up is recommended in 6 weeks. 2. Hyperechoic area identified only on transabdominal imaging is of uncertain etiology. Underlying de rmoid is difficult to exclude. Consider CT follow-up. O-RADS 2021 [email or web address] [email or web address], , 12/03/2024 8:49 AM
== END | disposition home or self-care (01) ==
LOC: RADUSWWP 14:44
PROVIDERS: ATTEND Nurse Practitioner
DX: N83.8 Other noninflammatory disorders of ovary, fallopian tube and broad ligament (principal); N20.1 Calculus of ureter; F41.9 Anxiety disorder, unspecified; J45.909 Unspecified asthma, uncomplicated; Z82.49 Family history of ischemic heart disease and other diseases of the circulatory system; Z87.442 Personal history of urinary calculi; Z88.0 Allergy status to penicillin; Z88.1 Allergy status to other antibiotic agents; Z88.2 Allergy status to sulfonamides; Z90.710 Acquired absence of both cervix and uterus
CPT/HCPCS: 76830; 76856